=== PATIENT | male | born 1970 | race Asian ===

== ENCOUNTER 2016-04-20 14:07 | Inpatient (IN) | payer OTHER, MEDICAID ==
[~2016-04-20 14:07] MED LIST: HEPARIN 50,000 UNIT/10 ML VIAL IV ONE
[2016-04-20] MEDS ORDERED: ACETAMINOPHEN 325 MG TAB PO PRN (16:22)
[2016-04-20] MEDS ORDERED: ONDANSETRON DISINTEGRATING 4 MG TAB PO PRN (16:22)
[2016-04-20] MEDS ORDERED: HYDROCODONE/APAP 5/325 TAB PO PRN (16:22)
[2016-04-20] MEDS ORDERED: ONDANSETRON 4 MG/2 ML VIAL IVP PRN (16:22)
--- NOTE | 2016-04-20 16:51 | PDGENHP ---
History and Physical - Chief Complaint facial swelling - History of Present Illness 45 yo male with hx of thymoma, dx in 2010, who presented to his oncologist office with left facial and left arm swelling and sent for direct admission. No swallowing issues, no resp issues, alert and oriented. He reports that the thymoma was biopsied in 2010 in [place] and was non malignant. We don't have a formal report. He has left facial swelling, left arm swelling. Onset is this morning. Denies CP, SOB, palpitations, leg swelling or other. Denies hx of DM. Denies other chronic medical problems. EATING, SWALLOWING, BREATHING W/O DIFFICULTY. ROS: per HPI, otherwise negative PMHx: ESRD Thymoma Soc: +cannabis, occasional tobacco, social ETOH Meds/All: no home meds. 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 WE WILL GET A CTA OF THE CHEST FOR EVALUATION OF ETIOLOGY OF SWELLING AND CONFIRMATION OF SVC FILTER. HOLD OFF ON A/C UNTIL CTA RESULTS ARE KNOWN. DR. TURNER WILL FOLLOW. I WILL CONTACT IR (DR RICHARDSON) TO DETERMINE IF A THYMOMA BIOPSY CAN BE DONE TOMORROW TO DETERMINE HOW TO PROCEED RE TREATMENT. IF IT CAN, DR. TURNER RECCS WE START DECADRON. IF CANT BE DONE TOMORROW, THEN SHE RECCS HOLDING DECADRON UNLESS HE DEVELOPS RESP, LARYNGEAL SWELLING SYMPTOMS. RENAL TO SEE RE DIALYSIS. TOTAL CARE TIME IS 80 MINUTES INCLUDING COORDINATION OF CARE History Information - Allergies/Home Medication List Allergies/Adverse Reactions: shimp Allergy (Mild, Uncoded 04/20/16 15:48) I have personally reviewed and updated: medical history, social history - Social History Smoking Status: Current some day smoker Physical Exam Temp Pulse Resp BP Pulse Ox 36.3 C 103 H 18 125/85 H 93 04/20/16 15:40 04/20/16 15:40 04/20/16 15:40 04/20/16 15:40 04/20/16 15:40
[2016-04-20] MEDS ORDERED: IOPAMIDOL (ISOVUE 370) 100 ML BTL IV ONE (16:59)
[2016-04-20 17:00] LABS: % IMMATURE GRANULYOCYTES 0.2 % (0.0-1.1); ABSOLUTE IMMATURE GRANULOCYTES 0.01 10^3/uL (0.00-0.10); ADD DIFF? NO; ADD MORPH? NO; ADD SCAN? NO; ATYPICAL LYMPHOCYTE FLAG 10 (0-99); FRAGMENT RBC FLAG 0 (0-99); HEMATOCRIT 29.9 % (40.0-51.0); HEMOGLOBIN 10.1 g/dL (13.7-17.5); LEFT SHIFT FLG 0 (0-99); LIPEMIA HEMOLYSIS FLAG 90 (0-99); MEAN CELL HEMOGLOBIN 33.7 pg (27.9-34.1); MEAN CELL HEMOGLOBIN CONCENTR. 33.8 g/dL (32.4-36.7); MEAN CELL VOLUME 99.7 fL (81.5-99.8); MEAN PLATELET VOLUME 10.5 fL (8.7-11.7); PLATELET CLUMPS FLAG 0 (0-99); PLATELET COUNT 196 10^3/uL (150-400); RED CELL DISTRIBUTION WIDTH 11.9 % (11.5-15.2)
[2016-04-20 17:15] LABS: ANION GAP 11 mEq/L (8-16); CALCIUM 8.3 mg/dL (8.5-10.4); CARBON DIOXIDE 27 mEq/l (22-31); CHLORIDE 105 mEq/L (97-110); CREATININE 5.9 mg/dL (0.7-1.3); GLOMERULAR FILTRATION RATE 10; GLUCOSE 98 mg/dL (70-100); MAGNESIUM 1.9 mg/dL (1.6-2.3); POTASSIUM 3.7 mEq/L (3.5-5.2); SODIUM 143 mEq/L (134-144)
--- NOTE | 2016-04-20 17:32 | SOAPPROG ---
SORAYA Progress Note Assessment/Plan: Assessment:Plan: ESRD-on Hd MWF at [facility] with Dr. Jacques -plan for dialysis tomorrow -will check Hep serologies LUE and facial edema-being evaluated for chest mass -history of thymoma -could represent recurrence or other process resulting in external compression of SVC -could also represent central vein stenosis and thrombosis related to prior tunneled dialysis catheter -if CT negative for mass, will need fistulagram tomorrow morning -I will follow up on CT and make NPO, place request, if exam negative -I contacted IR and they are aware that he may need exam tomorrow 04/20/16 17:29 Subjective: L Arm and facial swelling Objective: Vital Signs Temp Pulse Resp BP Pulse Ox 36.3 C 103 H 18 125/85 H 93 04/20/16 15:40 04/20/16 15:40 04/20/16 15:40 04/20/16 15:40 04/20/16 15:40 Laboratory Results 04/20/16 16:35 04/20/16 16:35 Physical Exam - Physical Exam General Appearance: WD/WN, alert, mild distress EENT: other (facial and periorbital swelling) Neck: other (some venous distention of veins in neck bilaterally) Respiratory: chest non-tender, lungs clear, normal breath sounds, No respiratory distress Cardiac/Chest: regular rate, rhythm, No diastolic murmur, No systolic murmur Abdomen: normal bowel sounds, non-tender, soft, No organomegaly, No pulsatile mass Extremities: other (AVF patent, massive LUE edema, no RUE edema), No swelling ( in LE's) ICD10 Worksheet Patient Problems: Problems Problem Status Diagnosed ESRD (end stage renal disease) Acute - ICD10 Problem Qualifiers (1) ESRD (end stage renal disease)
--- NOTE | 2016-04-20 18:16 | GCON ---
[f rep st] CONSULTATION REASON FOR CONSULTATION: Patient with a history of previous benign thymoma, presents with clinical presentation concerning for SVC syndrome, known patient of Dr. Colon. HISTORY OF PRESENT ILLNESS: The patient is a very pleasant 45-year-old gentleman, who has endstage renal disease, on hemodialysis for a prior diagnosis of polycystic renal disease. He has been evaluated at [facility] for a renal transplant. He was found to have a mediastinal mass several years ago that was biopsied in [place], [place], and was told it was benign thymoma and followed thereafter, but not treated. I reviewed his biopsy result from Dr. Colon's note from [facility] and an over-read at [place] would suggest this is best classified as a typical thymoma The patient presented today with a 1-day history of facial swelling. He states he has never had this before. Whole face is swollen, including periorbital edema. Also noted that his right neck veins are distended and bilateral upper extremities also distended. He denies any dyspnea and stridor, difficulty swallowing or hemoptysis. He denies any changes in his voice. The most recent CT evaluation of the thymoma was done in November of 2015. At that time, the mass measured approximately 9 cm at its largest dimension. Dr. Colon wanted patient admitted today for a repeat CTA of his chest to evaluate the thymoma and potential that he have thrombosis as well. Patient continues to be dialyzed 3 days a week. He has a dialysis graft on the left upper extremity. He denies abdominal pain, nausea, vomiting, lower extremity edema, fever, weight loss, or skin rash. He does not have any sequelae of the thymoma suggesting myasthenia gravis or any history of blood count abnormalities. PAST MEDICAL HISTORY: Significant for hemorrhagic stroke in 2008 due to untreated hypertension, was found to have polycystic renal disease and renal insufficiency. At that time, he was left with left hemiparesis. He had a craniotomy for removal of hematoma. Mediastinal mass as described above and endstage renal disease as described above. PAST SURGICAL HISTORY: Noncontributory. SOCIAL HISTORY: Smokes cannabis. Occasional tobacco. Social alcohol. MEDS: Reviewed his home medications. PHYSICAL EXAM: VITAL SIGNS: Today show blood pressure 125/85, pulse of 103, respiration rate 18, satting 93% on room air, temp is 36.3. GENERAL: This is a middle-aged gentleman, looks his stated age, not in acute distress. HEENT: Marked facial swelling with periorbital edema. Also has distended neck veins, right greater than left. HEART: Regular rate and rhythm. He had no murmur. LUNGS: Clear to auscultation bilaterally. ABDOMEN: Soft, nontender. LOWER EXTREMITIES: No edema. He has a dialysis graft on the left. He has no indwelling catheters. LABS: Today show CBC with a white blood cell count of 4.5, hemoglobin 10 and platelet count 196. Chemistry: Sodium 143, potassium 3.7, BUN 19, creatinine 5.9. Calcium 8.3, mag 1.9. ASSESSMENT AND PLAN: A 45-year-old gentleman with the above-mentioned past medical history, namely presumed large thymoma and endstage renal disease, who presents with clinical evidence of superior vena cava syndrome. 1. Superior vena cava syndrome, clinically moderate with facial swelling and distended neck veins. He has no respiratory compromise at this time. Differential diagnosis includes external compression from enlarging thymoma or possibly benign superior vena cava syndrome from previous dialysis cath causing a central vein stenosis. He also may have an associated acute thrombosis. At this time, a CTA has been ordered and is pending. He is not currently on any anticoagulation, but is on prophylactic heparin. Renal is following along. If this is from an intrinsic stenosis of central vein, will need venography and ballooning, or stenting of the stenotic area. If this is due to tumor, certainly will need to consider a resection. 2. Thymoma, benign pathology several years ago. Am asking Interventional Radiology to do a CT-guided biopsy tomorrow. Given the high likelihood this is an intrinsic stenosis, I am less inclined to start steroids now. Would like to see the CTA of the chest and would like to hold steroids unless he develops any respiratory or laryngeal swelling symptoms. 3. Endstage renal disease. Appreciate Renal recs. Continue all home medications. Will continue to follow along with patient. Patient is in agreement with the plan. /[id number]/MODL MTDD
--- NOTE | 2016-04-20 18:32 | CT ---
CT Angiogram of the Chest Clinical Indications: SVC syndrome. Known thymic mass. Technique: 1.25-mm thin axial images are performed from lung apex through base during intravenous co ntrast injection of 85 mL of Isovue-370. Coronal and parasagittal reformatted images are reviewed on PACS workstation. Dose reduction techniques were utilized. Comparison: CT angiogram abdomen and pelvis October 28, 2015. Findings: CT Angiogram of the Chest: Congenital right-sided thoracic aorta, with a retroesophageal left subcla vian artery. The ascending thoracic aorta is 3.1 cm, while the descending portion beyond the left ruiz bclavian artery measures 2.5 cm. The right subclavian artery is attached normally, as is the left ca rotid artery. The left vertebral artery does come off of the left subclavian artery, but it is very small. The patient has a dominant right vertebral artery, which comes off of the right subclavian ar isak. The carotid arteries at the base of the neck are symmetric bilaterally. The venous drainage system is abnormal. Specifically, the left jugular vein is contrasted much brigh ter than the right, indicating some degree of arteriovenous fistula. There is extensive chest wall c ollateralization, because the innominate vein that goes from the left to the SVC is completely occlud ed for a very short focal segment by this thymic mass. 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 If anything, I would assume this would cause a delayed contrast rather than in creased contrast uptake. The SVC is also significantly encroached upon by the ascending thoracic aorta, which is just medial t o it. The SVC does drain normally into the right heart. There is no contrast opacification in the I VC on this arterial phase study. I see a flow void that should represent a normal-sized IVC. The pulmonary arterial system does not show any acute pulmonary embolism or chronic pulmonary embolis m. The mass shows multiple arterial phase vessel enhancement, with small vessels traversing through it. There are areas of punctate increased density that probably represent calcifications. CT Scan Chest: There is a mild amount of bibasilar atelectasis. I do not see any dense parenchymal consolidation. There may be mild pulmonary edema. I do not see any significant soft tissue edema in the base of the neck. No adenopathy. No pericardial or pleural effusion. Polycystic liver disease and bilateral polycystic kidney disease is again noted, unchanged from the prior scan. Both thyroid glands are homogeneous, without dominan t nodules. Impression: 1. Large anterior mediastinal left-sided mass, with multiple vessels in it, and probably some areas of punctate calcification. This is amenable to CT-guided anterior percutaneous biopsy. 2. Right-sided thoracic aorta, congenital variant. 3. Subsequent retrotracheal/retroesophageal left subclavian artery. 4. High-grade long segment left innominate vein narrowing due to the mass, with focal complete occlu marcella, causing aneurysmal dilatation of the poststenotic segment of the left subclavian vein and axill donny vein. Extensive chest wall collaterals. 5. Dominant right vertebral artery, with a miniscule left vertebral artery. 6. Significant increased contrast uptake in the left jugular vein, suggestive of an arteriovenous fi stula, although I am not finding this fistula on this CTA. 7. Polycystic kidney disease and polycystic liver disease.
--- NOTE | 2016-04-20 19:16 | US ---
Venous Doppler Study of Left Upper Extremity History: Left upper extremity swelling in a 45-year-old male. There is a left-sided dialysis graft. Technique: High frequency transducer was used for imaging and Doppler study of the veins of the left upper extremity. Pulsed Doppler and color Doppler were utilized, along with various maneuvers to asse ss flow in the veins. This study is interpreted in conjunction with CT scan of the chest performed earlier today. Findings: No venous thrombus is identified. Retrograde flow is seen in the left internal jugular vein and numerous collaterals are identified consistent with findings on the contrast enhanced CT scan of the chest performed earlier today. The left basilic is not identified. The dialysis graft is patent. The left innominate is not visualized. Incidentally, there is diminished pulsatility in the patent r ight subclavian consistent with more central obstruction as detailed in the CT examination. Impression: Negative for venous thrombus with numerous findings detailed on the recent CT scan of the chest. The dialysis graft is patent.
[2016-04-20] MEDS ORDERED: HEPARIN 5,000 UNIT/0.5 ML SYR SC SCH (22:00)
--- NOTE | 2016-04-20 22:37 | GCON ---
[f rep st] CONSULTATION Corrected report NEPHROLOGY CONSULTATION DATE OF CONSULTATION: 04/20/2016 REASON FOR CONSULTATION: End-stage renal disease, in need of dialysis. REASON FOR ADMISSION: 1. Left upper extremity, head and neck swelling, concern for superior vena cava syndrome. 2. History of thymoma. 3. History of polycystic kidney disease. 4. End-stage renal disease, on dialysis, initiated 02/2013. 5. 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 6. Hypertension. RECOMMENDATIONS: 1. Imaging of his chest as you are doing to evaluate for problems related to his thymoma. 2. Plan for dialysis tomorrow. 3. Consider fistulogram if there is no evidence for mass. 4. Renal diet. 5. Avoid IVs, blood pressures and blood draws in the patient's left arm. HISTORY: The patient is a very pleasant 45-year-old male I have been asked to consult on by Dr. Nestor Stockton for his end-stage renal disease. The patient is on dialysis Sunday, Sunday, Sunday at the [facility] under the care of Dr. Jacques. He has end-stage renal disease secondary to polycystic kidney disease. He was diagnosed with his polycystic kidney disease later in life when he presented with a hemorrhagic stroke. This resulted in left hemiparesis and has resulted in a left upper arm contracture at the wrist. He went on to reach end-stage renal disease, and initiated dialysis in February of 2013 in [place], [place]. He relocated here to [place] to be closer to his sister. He had been dialyzed through a tunneled dialysis catheter. He had a left upper extremity AV fistula placed on 05/12/[address] Villatoro at [facility]. He has been relatively stable on dialysis. PAST MEDICAL HISTORY: Thymoma diagnosed in 2010. Polycystic kidney disease diagnosed in 2008. End-stage renal disease, on dialysis since February 2013. Hemorrhagic stroke 2008. Hypertension. Hyperparathyroidism. Iron Deficiency. Anemia SURGICAL HISTORY: Left upper extremity AV fistula, 05/12/2013. Surgical history is also for craniotomy to remove hematoma. FAMILY HISTORY: Positive for possible polycystic kidney disease in his mother. She evidently prior to reaching end-stage renal disease. SOCIAL HISTORY: Positive for marijuana use. OUTPATIENT MEDICATIONS: Include Sensipar 30 mg daily, and Renvela 800 mg taking 2 tablets with meals. CURRENT INPATIENT MEDICATIONS: Acetaminophen, Switchback, Zofran, Subcutaneous heparin. REVIEW OF SYSTEMS: Negative except for that included in the history of present illness. PHYSICAL EXAMINATION: VITAL SIGNS: Temperature 36.3, pulse 106, respirations 16, blood pressure 143/100. Saturating 94% on room air. APPEARANCE: Appears to have head and neck edema. He has periorbital edema. He has some mild engorgement of superficial veins in his neck bilaterally. HEART: Regular with no extra heart sounds. LUNGS: Clear. LEFT UPPER EXTREMITY: Massively edematous with contraction in his hand. Bruit is audible in his fistula. ABDOMEN: Exam is benign. LOWER EXTREMITIES: Free of edema. LABS: Show a creatinine of 5.9, BUN 19, potassium 3.7. Hematocrit 29.9. ASSESSMENT: End-stage renal disease, on dialysis Sunday, Sunday, Sunday. We will plan on doing dialysis tomorrow, depending on what the nature of his chest x-ray is. If he has no evidence of mediastinal mass, then I would pursue fistulogram to look for a central vein stenosis related to his prior tunneled hemodialysis catheter. Obviously, if he has problems with SVC syndrome due to either his previously identified thymoma or some other mediastinal process, evaluation and treatment will depend on the nature of this finding. His arm is swollen. It may be difficult to cannulate his fistula. We may need to wait until his presumed SVC syndrome is treated. He is being seen by Hematology. He has been seen by the Hospitalist service. We will continue his outpatient medications. We will place him on a renal diet. Copy requested to: Primary Care Physician [facility] /[id number]/MODL Ирина WT, 04/21/16, aveyr BENITEZ
[2016-04-21 08:44] LABS: INR 1.01 (0.83-1.16); PROTIME(PATIENT) 13.2 SEC (12.0-15.0)
[2016-04-21] MEDS ORDERED: NON-FORMULARY NEW DRUG (Sevelamer Carbonate [Renvela] 1,600 MG) PO SCH (09:00)
[2016-04-21] MEDS: CINACALCET HCL 30 MG TAB PO SCH (10:55)
--- NOTE | 2016-04-21 11:27 | SOAPPROG ---
SOAP Progress Note Assessment/Plan: Assessment/Plan: ESRD: on HD MWF. - Will do HD today per routine. Access: LUE swollen due to obstructing chest mass. US shows fistula is patent. Will attempt to use today. Tentative plan for surgical intervention of mass this weekend. KENNEY: continue sensipar. Continue Renvela as long as pt has po intake. Subjective: No acute events overnight. Pt is breathing comfortably on room air, not in pain. Objective: Vital Signs Temp Pulse Resp BP Pulse Ox 36.8 C 98 16 144/95 H 95 04/21/16 07:19 04/21/16 07:19 04/21/16 07:19 04/21/16 07:19 04/21/16 07:19 Laboratory Results 04/20/16 16:35 04/20/16 16:35 04/20/16 04/21/16 04/22/16 05:59 05:59 05:59 Intake Total 650 Output Total 300 Balance 350 PT 13.2 SEC (12.0-15.0) 04/21/16 08:18 INR 1.01 (0.83-1.16) 04/21/16 08:18 General: alert and oriented, no acute distress Eyes: EOMI, PERRL Head: swelling noted more prominently on L side of face OP: Clear CV: RRR Resp: CTA bilat, nonlabored respirations Abd; Soft, NT Ext: +1 edema LUE Neuro: CN II-XII grossly intact, no asterixis Psych: cooperative, appropriate mood and affect Access: LUE AVF with thrill and bruit appreciated ICD10 Worksheet Patient Problems: Problems Problem Status Diagnosed ESRD (end stage renal disease) Acute
[2016-04-21] MEDS ORDERED: SEVELAMER HCL 800 MG TAB PO SCH ×2 (12:00)
--- NOTE | 2016-04-21 13:34 | SOAPPROG ---
SORAYA Progress Note Assessment/Plan: Assessment/Plan: 45 yo man w ESRD on HD who p/w mild/mod SVC syndrome due to large thymoma and vascular anomalies 1. Thymoma - Bx and diagnosed several years ago; no intervention was recommended But now appears mass causing vascular compromise on left D/W Dr Magaña Will plan CT guided Bx w IR to get new path reviewed here If thymoma and resectable, would be recommended upfront approach per NCCN guidelines Doubt different path as has been going on for some time NPO Will follow along 2. SVC syndrome - SVC compromised by high aortic arch compressing SVC on R ( anotomin abnormality) in addition to thymic mass compression on left No indication for endovascular stent Clinically pt looks better today for unclear reasons 3. ESRD - HD 3x/week; due to PCKD 4. Anemia - due to ESRD 5. Other med issues - per IM, appreciate help 04/21/16 13:22 04/21/16 13:34 04/21/16 13:43 04/21/16 13:44 Subjective: No acute events In HD currently Reports decreased facial swelling Objective: Vital Signs Temp Pulse Resp BP Pulse Ox 36.5 C 92 16 136/96 H 93 04/21/16 11:37 04/21/16 11:37 04/21/16 11:37 04/21/16 11:37 04/21/16 11:37 Laboratory Results 04/20/16 16:35 04/20/16 16:35 04/20/16 04/21/16 04/22/16 05:59 05:59 05:59 Intake Total 650 Output Total 300 Balance 350 PT 13.2 SEC (12.0-15.0) 04/21/16 08:18 INR 1.01 (0.83-1.16) 04/21/16 08:18 Gen - NAD HEENT - facial and periorbital swelling less today; R arm less edematous than left CV - RRR Chest - clear Ext - no sig edema ICD10 Worksheet Patient Problems: Problems Problem Status Diagnosed ESRD (end stage renal disease) Acute
[2016-04-21] MEDS ORDERED: HYDROmorphONE/DILAUDID 2 MG/ML INJ ONE (14:38)
[2016-04-21] MEDS ORDERED: fentaNYL 100 MCG/2 ML INJ ONE (14:38)
--- NOTE | 2016-04-21 15:55 | HOSPPROG ---
Hospitalist Progress Note Assessment/Plan: * enlarging mediastinal mass with previous diagnosis of thymoma * after discussion with cardiovascular surgery and Oncology will go ahead with biopsy today. * Most likely need resection * end-stage renal disease * dialysis today * SVC syndrome * seems to be better today * does have a lot of collateralization on CT scan * no indication for endovascular stenting Subjective: no new complaint although feeling hungry. Does have some continued left arm and facial swelling but better Objective: Vital Signs Temp Pulse Resp BP Pulse Ox 36.5 C 92 16 136/96 H 93 04/21/16 11:37 04/21/16 11:37 04/21/16 11:37 04/21/16 11:37 04/21/16 11:37 Laboratory Results 04/20/16 16:35 04/20/16 16:35 04/20/16 04/21/16 04/22/16 05:59 05:59 05:59 Intake Total 650 Output Total 300 Balance 350 PT 13.2 SEC (12.0-15.0) 04/21/16 08:18 INR 1.01 (0.83-1.16) 04/21/16 08:18 - Physical Exam Constitutional: no apparent distress, appears nourished, not in pain Eyes: anicteric sclera, EOMI Ears, Nose, Mouth, Throat: moist mucous membranes, hearing normal, other ( mild left facial swelling but no significant periorbital edema) Cardiovascular: regular rate and rhythym Respiratory: no respiratory distress, no rales or rhonchi, clear to auscultation Gastrointestinal: normoactive bowel sounds, soft, non-tender abdomen, no palpable masses Skin: warm Neurologic: AAOx3 Psychiatric: interacting appropriately, not anxious, not encephalopathic, thought process linear ICD10 Worksheet Patient Problems: Problems Problem Status Diagnosed ESRD (end stage renal disease) Acute
[2016-04-21] MEDS ORDERED: SEVELAMER CARBONATE 1600 MG PO SCH (16:00)
[2016-04-21] MEDS: SEVELAMER CARBONATE 1600 MG PO SCH ×2 (17:28→20:25)
--- NOTE | 2016-04-21 17:41 | POSTOPPROG ---
Post Op Note Date of Operation: 04/21/16 Surgeon: Edd Liao Anesthesia: Other (Specify) (150 mcg Fentanyl) Pre-op Diagnosis: Anterior mediastinal mass Post-op Diagnosis: Anterior mediastinal mass Indication: Anterior mediastinal mass Procedure: CT guided anterior mediastinal mass biopsy Findings: No immediate complication Inf/Abcess present in the surg proc area at time of surgery?: No Depth: Organ Space (anterior mediastinum) EBL: Minimal Complications: No immediate Specimen(s): 7 18 gauge core biopsies
--- NOTE | 2016-04-21 18:55 | CT ---
CT-Guided Anterior Mediastinal Mass Biopsy Indication: 45-year-old with heterogeneous anterior mediastinal mass, reportedly biopsied years ago ( pathology not available). Crosscutting Measure #226: Current tobacco user: Yes. The patient was counseled on smoking cessation. Comparison: CT angio chest April 20, 2016. Intravenous medication: Fentanyl 150 mcg were administered intravenously for conscious sedation durin g 40 minutes of monitoring by the nurse and me. Start time was 1615 and end time was 1655. Procedure: Prior to the procedure, the risks (including bleeding, infection, and nondiagnosis), benef its, and alternatives were explained to the patient and informed written consent was obtained. A time out was performed. A pre-procedural CT was performed and an area of skin over the left margin of the sternum was marked, then prepped and draped in the usual sterile fashion. The skin and deep soft ti ssues were numbed with 1% lidocaine with bicarbonate. Utilizing CT guidance, a 17-gauge coaxial needl e was advanced into the mass, just lateral to the sternum, medial to the internal mammary artery. Us ing coaxial technique, 7 core biopsies were obtained. 2 were placed in Ho's solution for flow cytom etry if necessary. The needle was removed. Manual hemostasis was achieved. The patient tolerated the procedure well without immediate complications. The patient was sent to recovery for monitoring. Post procedure discharge instructions were given. Specimens were sent to Pathology for analysis. Dose red uction techniques were utilized. Impression: CT-guided anterior mediastinal mass biopsy as above.
[2016-04-22] MEDS: CINACALCET HCL 30 MG TAB PO SCH (08:37)
[2016-04-22] MEDS: SEVELAMER CARBONATE 1600 MG PO SCH ×2 (08:37→17:40)
--- NOTE | 2016-04-22 11:11 | GCON ---
[f rep st] CONSULTATION DATE OF CONSULTATION: 04/22/2016 DIAGNOSIS: Anterior mediastinal mass. HISTORY OF PRESENT ILLNESS: A 45-year-old gentleman who has a somewhat complicated history. He has polycystic kidney and liver disease, and he has been on dialysis since 2014. He has a known anterior mediastinal mass. It was biopsied in [place] in 2010. He was told he had a benign thymoma. Last y ear he saw a surgeon at the [facility], who said it would be a "dangerous operation," and the patient apparently opted not to have anything done to the mass in his mediastinum. In November of last year, apparently by CT scan, it measured 9 cm. Now he presents with superior vena cava synd rigoberto with facial swelling starting last week, and he was admitted to the hospital. He had a CT scan that shows a very large anterior mediastinal mass, compressing the left innominate vein and the left pulmonary artery, and abutting his trachea. There are areas where there is a clear plane around the lesion, but there are other areas such as around the pulmonary artery and around the trachea where th ere is not a clear-cut plane. The patient also has aberrant anatomy with a right-sided arch and a re trotracheal left subclavian artery. The patient had a biopsy per my request yesterday. These result s are still pending. REVIEW OF SYSTEMS: The patient has polycystic kidney and liver disease and is on dialysis. He has a history of a stroke in 2008. He did have a craniotomy at that time. This was thought to be seconda ry to hypertension. He has residual complete left arm paralysis. He is able to walk with a cane. PAST SURGICAL HISTORY: Craniotomy. He has a functioning fistula in the left upper arm, and he is tr santo to get on a transplant list at the [facility]. PHYSICAL EXAMINATION: VITAL SIGNS: Stable. GENERAL: This is a well-developed male. He is alert a nd oriented. He has obvious paralysis of the left arm. There is a functioning fistula in the left u pper arm. He has significant fascial swelling. He has large veins on his upper chest wall. LUNGS: Clear. HEART: Regular rate and rhythm. Again, there are large veins on his chest wall. ASSESSMENT: This is a 45-year-old with a large anterior mediastinal mass that is obstructing his lef t innominate vein, and this is behind a fistula. The superior vena cava has narrowed as it is compre ssed by the aorta and a right-sided arch. The trachea is abutted, but not compressed. The left main pulmonary artery is abutted and compressed. It is not clear whether there is a plane at that level. It is not at all clear whether this is a resectable tumor, although there is a need in this patient for debulking at this time, and I think that is the approach we need to take. The surgery is going to be complicated by the fact that the patient does have a functioning fistula in his left upper extr emity that is going to increase the venous pressure in the system and cause more issues with bleeding , but I think it is something we will have to accept. We may have to compress the fistula transientl y during the operation to accomplish all of this. I do want to wait and see what the biopsy shows. If by some unfortunate circumstance this is actually a thymic carcinoma, then the patient should be p retreated with chemotherapy and radiation therapy. If not, surgery remains his best option. /[id number]/MODL
[2016-04-22 13:54] LABS: HEPATITIS Bs Ab QUANT 50.5 mIU/mL (())
--- NOTE | 2016-04-22 14:59 | HOSPPROG ---
Hospitalist Progress Note Assessment/Plan: * enlarging mediastinal mass with previous diagnosis of thymoma * will need resection * biopsy done yesterday * end-stage renal disease due to polycystic kidney disease * dialysis * SVC syndrome * seems to be better today * does have a lot of collateralization on CT scan * no indication for endovascular stenting Subjective: no new complaints. Swelling is about the same Objective: Vital Signs Temp Pulse Resp BP Pulse Ox 37.1 C 90 16 112/84 H 94 04/22/16 11:20 04/22/16 11:20 04/22/16 11:20 04/22/16 11:20 04/22/16 11:20 Laboratory Results 04/20/16 16:35 04/20/16 16:35 04/21/16 04/22/16 04/23/16 05:59 05:59 05:59 Intake Total 650 Output Total 300 Balance 350 PT 13.2 SEC (12.0-15.0) 04/21/16 08:18 INR 1.01 (0.83-1.16) 04/21/16 08:18 - Physical Exam Constitutional: no apparent distress, appears nourished, not in pain Eyes: anicteric sclera, EOMI Ears, Nose, Mouth, Throat: moist mucous membranes, other ( left facial swelling about the same) Cardiovascular: regular rate and rhythym Respiratory: no respiratory distress, no rales or rhonchi, clear to auscultation Gastrointestinal: normoactive bowel sounds, soft, non-tender abdomen, no palpable masses Skin: warm Neurologic: AAOx3 Psychiatric: interacting appropriately, not anxious, not encephalopathic, thought process linear ICD10 Worksheet Patient Problems: Problems Problem Status Diagnosed ESRD (end stage renal disease) Acute
--- NOTE | 2016-04-22 17:43 | SOAPPROG ---
SORAYA Progress Note Assessment/Plan: Assessment: 1. esrd: next hd Mon on typical mwf schedule. 2. svc syndrome: path pending on bx of mediastinal mass but will need surgery. 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 Will see how LUE swelling responds to surgery, but may also need uniform force captain of stenosis. Plan: 04/22/16 17:39 Subjective: No particular c/o. Facial swelling has gone down. Objective: Vital Signs Temp Pulse Resp BP Pulse Ox 36.4 C 86 16 127/89 H 93 04/22/16 15:34 04/22/16 15:34 04/22/16 15:34 04/22/16 15:34 04/22/16 15:34 Laboratory Results 04/20/16 16:35 04/20/16 16:35 04/21/16 04/22/16 04/23/16 05:59 05:59 05:59 Intake Total 650 Output Total 300 Balance 350 PT 13.2 SEC (12.0-15.0) 04/21/16 08:18 INR 1.01 (0.83-1.16) 04/21/16 08:18 Physical Exam - Physical Exam General Appearance: no apparent distress Respiratory: lungs clear Cardiac/Chest: regular rate, rhythm Extremities: swelling (RUE), other (+patent RUE avg) ICD10 Worksheet Patient Problems: Problems Problem Status Diagnosed ESRD (end stage renal disease) Acute
--- NOTE | 2016-04-22 18:26 | SOAPPROG ---
SORAYA Progress Note Assessment/Plan: Assessment: 45 yo man w ESRD on HD who p/w mild/mod SVC syndrome due to large thymoma and vascular anomalies 1. Thymoma - Bx and diagnosed several years ago; no intervention was recommended But now appears mass causing vascular compromise on left. He had his biopsy preformed on 04/21/16. Results are pending. If thymoma and resectable, would be recommended upfront approach per NCCN guidelines Doubt different path as has been going on for some time. Will follow along 2. SVC syndrome - SVC compromised by high aortic arch compressing SVC on R ( anotomin abnormality) in addition to thymic mass compression on left No indication for endovascular stent. He is not sure if his swelling is better today or not. 3. ESRD - HD 3x/week; due to PCKD 4. Anemia - due to ESRD 5. Other med issues - per IM, appreciate help Plan: Will follow up when biopsy is available. Subjective: No complaints. Watching TV. Objective: Vital Signs Temp Pulse Resp BP Pulse Ox 36.4 C 86 16 127/89 H 93 04/22/16 15:34 04/22/16 15:34 04/22/16 15:34 04/22/16 15:34 04/22/16 15:34 Laboratory Results 04/20/16 16:35 04/20/16 16:35 04/20/16 04/21/16 04/22/16 23:59 23:59 23:59 Intake Total 650 Output Total 300 Balance 650 -300 PT 13.2 SEC (12.0-15.0) 04/21/16 08:18 INR 1.01 (0.83-1.16) 04/21/16 08:18 Physical Exam - Physical Exam General Appearance: alert, no apparent distress Neck: other (swelling consistent with SVC syndrome) ICD10 Worksheet Patient Problems: Problems Problem Status Diagnosed ESRD (end stage renal disease) Acute
[2016-04-23 05:21] LABS: ANION GAP 10 mEq/L (8-16); CALCIUM 9.2 mg/dL (8.5-10.4); CARBON DIOXIDE 28 mEq/l (22-31); CHLORIDE 100 mEq/L (97-110); GLOMERULAR FILTRATION RATE 7; GLUCOSE 76 mg/dL (70-100); POTASSIUM 4.6 mEq/L (3.5-5.2); SODIUM 138 mEq/L (134-144)
[2016-04-23 05:23] LABS: CREATININE 8.3 mg/dL (0.7-1.3)
[2016-04-23] MEDS: CINACALCET HCL 30 MG TAB PO SCH (09:37)
[2016-04-23] MEDS: SEVELAMER CARBONATE 1600 MG PO SCH ×3 (09:37→19:18)
--- NOTE | 2016-04-23 15:36 | SOAPPROG ---
SORAYA Progress Note Assessment/Plan: Assessment: 1. esrd: hd tomorrow on typical mwf schedule. 2. svc syndrome: path pending on bx of mediastinal mass but will need surgery. 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 Will see how LUE swelling responds to surgery, but may also need airplane captain of stenosis. Plan: 04/22/16 17:39 04/23/16 15:34 Subjective: no c/o, feeling well Objective: Vital Signs Temp Pulse Resp BP Pulse Ox 36.3 C 85 16 119/84 H 98 04/23/16 08:00 04/23/16 08:00 04/23/16 08:00 04/23/16 12:03 04/23/16 12:03 Laboratory Results 04/20/16 16:35 04/23/16 04:21 PT 13.2 SEC (12.0-15.0) 04/21/16 08:18 INR 1.01 (0.83-1.16) 04/21/16 08:18 Physical Exam - Physical Exam General Appearance: no apparent distress Respiratory: lungs clear Cardiac/Chest: regular rate, rhythm Extremities: other (no LE edema; +LUE edema; +patent LUE avg) ICD10 Worksheet Patient Problems: Problems Problem Status Diagnosed ESRD (end stage renal disease) Acute
--- NOTE | 2016-04-23 15:54 | HOSPPROG ---
Hospitalist Progress Note Assessment/Plan: * enlarging mediastinal mass with previous diagnosis of thymoma * will need resection * biopsy done Sunday - awaiting results * CV surgery is following - possible surgery on Sunday * end-stage renal disease due to polycystic kidney disease * dialysis * SVC syndrome * seems to be better today * does have a lot of collateralization on CT scan * no indication for endovascular stenting Subjective: no new complaints Objective: Vital Signs Temp Pulse Resp BP Pulse Ox 36.3 C 85 16 119/84 H 98 04/23/16 08:00 04/23/16 08:00 04/23/16 08:00 04/23/16 12:03 04/23/16 12:03 Laboratory Results 04/20/16 16:35 04/23/16 04:21 PT 13.2 SEC (12.0-15.0) 04/21/16 08:18 INR 1.01 (0.83-1.16) 04/21/16 08:18 - Physical Exam Constitutional: no apparent distress, appears nourished, not in pain Eyes: anicteric sclera, EOMI Ears, Nose, Mouth, Throat: moist mucous membranes, other ( left facial swelling about the same) Respiratory: no respiratory distress Musculoskeletal: other ( left arm swelling about the same) Neurologic: AAOx3 Psychiatric: interacting appropriately, not anxious, not encephalopathic, thought process linear ICD10 Worksheet Patient Problems: Problems Problem Status Diagnosed ESRD (end stage renal disease) Acute
[2016-04-24 05:21] LABS: ANION GAP 12 mEq/L (8-16); CALCIUM 8.7 mg/dL (8.5-10.4); CARBON DIOXIDE 27 mEq/l (22-31); CHLORIDE 100 mEq/L (97-110); GLOMERULAR FILTRATION RATE 6; GLUCOSE 74 mg/dL (70-100); POTASSIUM 4.6 mEq/L (3.5-5.2); SODIUM 139 mEq/L (134-144)
--- NOTE | 2016-04-24 08:37 | SOAPPROG ---
SORAYA Progress Note Assessment/Plan: Assessment: 1. Recurrent Thymoma with SVC syndrome Bx path hopefully back today. Plans for surgery subsequently 2. HTN At goal 3. ESRD Stable HD today, next on Sun. Plan: 04/24/16 08:34 Subjective: Doing ok. Objective: Vital Signs Temp Pulse Resp BP Pulse Ox 36.7 C 90 14 126/85 H 94 04/23/16 23:32 04/23/16 23:32 04/23/16 23:32 04/23/16 23:32 04/23/16 23:32 Laboratory Results 04/20/16 16:35 04/24/16 04:33 04/23/16 04/24/16 04/25/16 05:59 05:59 05:59 Output Total 50 Balance -50 PT 13.2 SEC (12.0-15.0) 04/21/16 08:18 INR 1.01 (0.83-1.16) 04/21/16 08:18 Physical Exam - Physical Exam General Appearance: no apparent distress EENT: other (Facial edema noted.) Respiratory: lungs clear Cardiac/Chest: regular rate, rhythm Abdomen: non-tender Extremities: pedal edema Neuro/Psych: oriented x 3 ICD10 Worksheet Patient Problems: Problems Problem Status Diagnosed ESRD (end stage renal disease) Acute
[2016-04-24] MEDS: SEVELAMER CARBONATE 1600 MG PO SCH ×3 (09:14→18:06)
[2016-04-24] MEDS ORDERED: LIDOCAINE 1% 5 ML SDV ID PRN (12:37)
[2016-04-24] MEDS ORDERED: MUPIROCIN 2% 22 GM OINT NS ONE (12:37)
[2016-04-24] MEDS: CINACALCET HCL 30 MG TAB PO SCH (12:44)
[2016-04-24 14:20] LABS: FINAL DIAGNOSIS See Comments (()); MICROSCOPIC DESCRIPTION See Comments (())
--- NOTE | 2016-04-24 14:59 | SOAPPROG ---
SORAYA Progress Note Assessment/Plan: Assessment: 45 yo man w ESRD on HD who p/w mild/mod SVC syndrome due to large thymoma and vascular anomalies 1. Thymoma - Bx and diagnosed several years ago; no intervention was recommended But now appears mass causing vascular compromise on left. He had his biopsy preformed on 04/21/16. Results show necrotic tissue, flow c/w t cell origin Scheduled for surgery tomorrow am 2. SVC syndrome - SVC compromised by high aortic arch compressing SVC on R ( anatomic abnormality) in addition to thymic mass compression on left No indication for endovascular stent. hopefully will improve post surgery 3. ESRD - HD 3x/week; due to PCKD 4. Anemia - due to ESRD 5. Other med issues - per IM, appreciate help Plan: will continue to follow 04/24/16 14:57 Subjective: Feels ok Objective: Vital Signs Temp Pulse Resp BP Pulse Ox 98.1 F 90 14 126/85 H 94 04/23/16 23:32 04/23/16 23:32 04/23/16 23:32 04/23/16 23:32 04/23/16 23:32 Laboratory Results 04/20/16 16:35 04/24/16 04:33 04/23/16 04/24/16 04/25/16 05:59 05:59 05:59 Output Total 50 Balance -50 PT 13.2 SEC (12.0-15.0) 04/21/16 08:18 INR 1.01 (0.83-1.16) 04/21/16 08:18 ICD10 Worksheet Patient Problems: Problems Problem Status Diagnosed ESRD (end stage renal disease) Acute
--- NOTE | 2016-04-24 16:25 | HOSPPROG ---
Hospitalist Progress Note Assessment/Plan: 45 yo M with hx of thymoma pw enlarging thymoma and svc syndrome # enlarging thymoma: with resultant vascular compromise. CT surgery consulted with plans for surgical resection in am. Personally reviewed CT scan showing enlarging mass with calcification and vascular effect # svc sydnrome: 2/2 above, plan for surgical resection of mass as above # esrd: 2/2 PKD, renal following, continue HD # hx of hemorrhagic stroke : with residual left sided weakness # dispo: IP status, to OR for surgical resection of thymoma in am per CT surgery Patient new to my care. Old records reviewed and summarized as above. Subjective: no significant overnight events, patient feeling ok, eager to get surgery done in am Objective: Vital Signs Temp Pulse Resp BP Pulse Ox 36.7 C 89 16 118/83 H 96 04/24/16 16:00 04/24/16 16:00 04/24/16 16:00 04/24/16 16:00 04/24/16 16:00 Laboratory Results 04/20/16 16:35 04/24/16 04:33 04/23/16 04/24/16 04/25/16 05:59 05:59 05:59 Output Total 50 Balance -50 PT 13.2 SEC (12.0-15.0) 04/21/16 08:18 INR 1.01 (0.83-1.16) 04/21/16 08:18 awake alert nad facial plethora and swelling rrr no mrg cta b soft nt nd no cce warm dry well perfused oriented appropriate ICD10 Worksheet Patient Problems: Problems Problem Status Diagnosed 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
[2016-04-24 16:57] LABS: HEMOGLOBIN A1C 5.2 % (4.0-6.0)
[2016-04-24] MEDS: MUPIROCIN 2% 22 GM OINT NS SCH (20:18)
[2016-04-24] MEDS ORDERED: CHLORHEXIDINE GLUC HIBICLENS 118 ML BTL TP SCH (21:00)
--- NOTE | 2016-04-24 21:09 | SOAPPROG ---
SORAYA Progress Note Assessment/Plan: Assessment: Plan: 04/24/16 21:05 45 min f/f reviewing CT w pt and sister surgery risks and complications rev at length including bleeding , need to occ access shunt w potential loss of shunt infection, inability to control bleeding or resect tumor an option as well alternatives to do nothing, not responsive to XRT or chemo usually and has caval syndrome may need CPB as adjunct they understand and accept those risks Objective: Vital Signs Temp Pulse Resp BP Pulse Ox 36.7 C 89 16 118/83 H 96 04/24/16 16:00 04/24/16 16:00 04/24/16 16:00 04/24/16 16:00 04/24/16 16:00 Laboratory Results 04/20/16 16:35 04/24/16 04:33 04/23/16 04/24/16 04/25/16 05:59 05:59 05:59 Intake Total 200 Output Total 50 Balance -50 200 PT 13.2 SEC (12.0-15.0) 04/21/16 08:18 INR 1.01 (0.83-1.16) 04/21/16 08:18 ICD10 Worksheet Patient Problems: Problems Problem Status Diagnosed 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
[2016-04-24] MEDS ORDERED: ZOLPIDEM TARTRATE 5 MG TAB PO PRN (22:13)
[2016-04-25] MEDS ORDERED: CITRATE DEXTROSE SOLN 500 ML BAG MISC ONE (06:00)
[2016-04-25] MEDS ORDERED: NOREPINEPHRINE BITARTRATE 16 MG in NS 250 ML IV ONE (06:00)
[2016-04-25] MEDS ORDERED: MANNITOL 25% 12.5 GM/50 ML VIAL IV ONE (06:00)
[2016-04-25] MEDS ORDERED: ceFAZolin 2 GM/DEXTROSE 100 ML IV ONE (06:00)
[2016-04-25] MEDS ORDERED: SODIUM BICARBONATE 20 MEQ, LIDOCAINE 1% 10 ML in NORMOSOL-R 1,000 ML MISC ONE (06:00)
[2016-04-25] MEDS ORDERED: NS 1,000 ML IV ONE (06:00)
[2016-04-25] MEDS ORDERED: PHENYLEPHRINE HCL 50 MG in NS 250 ML IV ONE (06:00)
[2016-04-25] MEDS ORDERED: AMINOCAPROIC ACID 5 GM/20 ML VIAL IV ONE (06:00)
[2016-04-25] MEDS ORDERED: INSULIN REGULAR HUMAN 100 UNIT in NS 100 ML IV SCH ×2 (06:00→16:15)
[2016-04-25] MEDS ORDERED: HEPARIN 10,000 UNIT/10 ML MDV ONE (06:46)
[2016-04-25] MEDS ORDERED: LIDOCAINE 2% 100 MG/5 ML SYR IVP ONE ×2 (06:46→07:22)
[2016-04-25] MEDS ORDERED: SODIUM BICARBONATE 10 MEQ/10 ML SYR IVP ONE (06:46)
[2016-04-25] MEDS ORDERED: AMINOCAPROIC ACID 5 GM/20 ML VIAL ONE (06:46)
[2016-04-25] MEDS ORDERED: MAGNESIUM SULFATE 1 GM/2 ML VIAL ONE (06:47)
[2016-04-25] MEDS ORDERED: PROTAMINE SULFATE 50 MG/5 ML VIAL IVP ONE (06:47)
[2016-04-25] MEDS ORDERED: CALCIUM CHLORIDE 1 GM/10 ML INJ ONE ×2 (06:48→09:49)
[2016-04-25] MEDS ORDERED: DOPamine/DEXTROSE/250 ML BAG IV ONE (06:51)
[2016-04-25 06:55] LABS: HEMATOCRIT 28.1 % (40.0-51.0); HEMOGLOBIN 9.4 g/dL (13.7-17.5); MEAN CELL HEMOGLOBIN 33.7 pg (27.9-34.1); MEAN CELL HEMOGLOBIN CONCENTR. 33.5 g/dL (32.4-36.7); MEAN CELL VOLUME 100.7 fL (81.5-99.8); RED BLOOD CELL COUNT 2.79 10^6/uL (4.40-6.38); RED CELL DISTRIBUTION WIDTH 11.9 % (11.5-15.2)
[2016-04-25] MEDS ORDERED: MIDAZOLAM 2 MG/2 ML VIAL ONE (07:18)
[2016-04-25] MEDS ORDERED: PROPOFOL/EMULSION 500 MG/50 ML BOTTLE IV ONE ×2 (07:20→10:01)
[2016-04-25] MEDS ORDERED: fentaNYL 250 MCG/5 ML INJ ONE (07:20)
[2016-04-25] MEDS ORDERED: REMIFENTANIL HCL 1 MG VIAL ONE ×2 (07:20→10:01)
[2016-04-25] MEDS ORDERED: CISATRACURIUM BESYLATE 20 MG/10 ML VIAL IV ONE ×3 (07:30→17:01)
[2016-04-25] MEDS ORDERED: SUCCINYLCHOLINE CHLORIDE*ANESTHESIA ONLY*200 MG/10 ML SYR IVP ONE (07:30)
[2016-04-25] MEDS ORDERED: DEXAMETHASONE 4 MG/ML VIAL ONE ×2 (07:31)
[2016-04-25] MEDS ORDERED: CITRATE DEXTROSE SOLN 500 ML BAG ONE ×2 (07:50→16:39)
[2016-04-25 07:51] LABS: ALBUMIN 3.5 g/dL (3.5-5.0); ANION GAP 13 mEq/L (8-16); CALCIUM 8.5 mg/dL (8.5-10.4); CARBON DIOXIDE 27 mEq/l (22-31); CHLORIDE 100 mEq/L (97-110); CREATININE 6.6 mg/dL (0.7-1.3); GLOMERULAR FILTRATION RATE 9; GLUCOSE 72 mg/dL (70-100); POTASSIUM 4.5 mEq/L (3.5-5.2); SODIUM 140 mEq/L (134-144)
--- NOTE | 2016-04-25 09:04 | SOAPPROG ---
SORAYA Progress Note Assessment/Plan: Assessment:Plan: ESRD-on Hd MWF at [facility] with Dr. Jacques -plan for dialysis tomorrow -UF as tolerated LUE and facial edema-SVC syndrome with chest mass -history of thymoma -for surgery today Access-stable 04/25/16 09:02 Subjective: In OR Objective: Vital Signs Temp Pulse Resp BP Pulse Ox 36.8 C 89 16 120/91 H 96 04/25/16 00:00 04/25/16 00:00 04/25/16 00:00 04/25/16 00:00 04/25/16 00:00 Laboratory Results 04/25/16 04:37 04/25/16 04:37 04/24/16 04/25/16 04/26/16 05:59 05:59 05:59 Intake Total 200 Output Total 50 Balance -50 200 PT 13.2 SEC (12.0-15.0) 04/21/16 08:18 INR 1.01 (0.83-1.16) 04/21/16 08:18 ICD10 Worksheet Patient Problems: Problems Problem Status Onset 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
[2016-04-25] MEDS ORDERED: ALBUMIN 5% 250 ML BOTTLE IV ONE ×3 (09:43→15:26)
[2016-04-25] MEDS ORDERED: morphINE *ANESTHESIA ONLY* 10 MG/ML VIAL ONE (10:01)
[2016-04-25] MEDS ORDERED: MAGNESIUM SULF 2 GM/WATER 50 ML BAG IV ONE (10:17)
[2016-04-25] MEDS ORDERED: ceFAZolin 1 GM VIAL ONE ×2 (12:18)
[2016-04-25] MEDS ORDERED: DESMOPRESSIN ACETATE 18 MCG in NS 50 ML IV ONE (12:30)
[2016-04-25] MEDS ORDERED: MINERAL OIL 10 ML VIAL TP ONE (12:47)
[2016-04-25] MEDS ORDERED: niCARdipine/NACL/200 ML BAG IV ONE (12:50)
[2016-04-25] MEDS ORDERED: PROPOFOL 200 MG/20 ML VIAL ONE ×4 (13:30→17:17)
[2016-04-25] MEDS ORDERED: fentaNYL 100 MCG/2 ML INJ ONE (13:51)
--- NOTE | 2016-04-25 14:21 | HOSPPROG ---
Hospitalist Progress Note Assessment/Plan: 45 yo M with hx of thymoma pw enlarging thymoma and svc syndrome # enlarging thymoma: with resultant vascular compromise. CT surgery consulted with plans for surgical resection today # svc sydnrome: 2/2 above, plan for surgical resection of mass as above # esrd: 2/2 PKD, renal following, continue HD # hx of hemorrhagic stroke : with residual left sided weakness # dispo: IP status, to OR for surgical resection of thymoma in am per CT surgery Patient to OR with CT surgery. Will be under primary care of CT surgery in post op setting and therefore medicine will sign off. Please re-consult if needed. Objective: Vital Signs Temp Pulse Resp BP Pulse Ox 36.8 C 89 16 120/91 H 96 04/25/16 00:00 04/25/16 00:00 04/25/16 00:00 04/25/16 00:00 04/25/16 00:00 Laboratory Results 04/25/16 04:37 04/25/16 04:37 04/24/16 04/25/16 04/26/16 05:59 05:59 05:59 Intake Total 200 Output Total 50 Balance -50 200 PT 13.2 SEC (12.0-15.0) 04/21/16 08:18 INR 1.01 (0.83-1.16) 04/21/16 08:18 ICD10 Worksheet Patient Problems: Problems Problem Status Onset ESRD (end stage renal disease) Chronic Superior vena cava compression syndrome Acute Thymoma 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
[2016-04-25 14:40] LABS: % IMMATURE GRANULYOCYTES 0.3 % (0.0-1.1); ABSOLUTE IMMATURE GRANULOCYTES 0.02 10^3/uL (0.00-0.10); ADD DIFF? NO; ADD MORPH? NO; ADD SCAN? NO; ATYPICAL LYMPHOCYTE FLAG 0 (0-99); FRAGMENT RBC FLAG 0 (0-99); HEMOGLOBIN 8.4 g/dL (13.7-17.5); LEFT SHIFT FLG 0 (0-99); LIPEMIA HEMOLYSIS FLAG 90 (0-99); MEAN CELL HEMOGLOBIN 32.2 pg (27.9-34.1); MEAN PLATELET VOLUME 9.5 fL (8.7-11.7); PLATELET CLUMPS FLAG 0 (0-99); PLATELET COUNT 70 10^3/uL (150-400); RED BLOOD CELL COUNT 2.61 10^6/uL (4.40-6.38); RED CELL DISTRIBUTION WIDTH 15.9 % (11.5-15.2)
[2016-04-25 14:55] LABS: INR 1.81 (0.83-1.16); PROTIME(PATIENT) 21.1 SEC (12.0-15.0)
[2016-04-25] MEDS ORDERED: SKIN ADHESIVE (DERMABOND) 1 EACH TP ONE (14:55)
[2016-04-25 14:56] LABS: APTT 50.9 SEC (23.0-38.0)
[2016-04-25] MEDS: MUPIROCIN 2% 22 GM OINT NS SCH ×2 (14:56→21:11)
[2016-04-25] MEDS: SEVELAMER CARBONATE 1600 MG PO SCH ×2 (14:56→14:58)
[2016-04-25] MEDS: CINACALCET HCL 30 MG TAB PO SCH (14:56)
[2016-04-25] MEDS ORDERED: LACTULOSE 20 GM/30 ML UDCUP PO PRN (16:15)
[2016-04-25] MEDS ORDERED: CEPACOL LOZENGE PO PRN (16:15)
[2016-04-25] MEDS ORDERED: MAGNESIUM SULF 2 GM/WATER 50 ML IV ONE (16:15)
[2016-04-25] MEDS ORDERED: METOCLOPRAMIDE 10 MG/2 ML VIAL IVP PRN (16:15)
[2016-04-25] MEDS ORDERED: PANTOPRAZOLE SODIUM 40 MG in NS 100 ML IV ONE (16:15)
[2016-04-25] MEDS ORDERED: ASPIRIN 81 MG CHEWABLE TAB PO SCH (16:15)
[2016-04-25] MEDS ORDERED: NS 1,000 ML IV SCH (16:15)
[2016-04-25] MEDS ORDERED: ASPIRIN 81 MG CHEWABLE TAB TUBE PRN (16:15)
[2016-04-25] MEDS ORDERED: ACETAMINOPHEN 650 MG SUPP PR PRN (16:15)
[2016-04-25] MEDS ORDERED: BISACODYL 10 MG SUPP PR PRN (16:15)
[2016-04-25] MEDS ORDERED: SODIUM CL NASAL 45 ML BTL EACHNARE PRN (16:15)
[2016-04-25] MEDS ORDERED: MAGNESIUM HYDROXIDE 30 ML UDCUP PO PRN (16:15)
[2016-04-25] MEDS ORDERED: D50W 25 GM/50 ML SYR IVP PRN (16:15)
[2016-04-25] MEDS ORDERED: POLYETHYLENE GLYCOL 3350 17 GM PKT PO PRN (16:15)
[2016-04-25] MEDS ORDERED: PANTOPRAZOLE SODIUM 40 MG TAB PO SCH (16:15)
[2016-04-25] MEDS ORDERED: MEPERIDINE 25 MG/ML SYR IVP PRN (16:15)
[2016-04-25] MEDS ORDERED: POTASSIUM Cl (KCl) 50 ML IV PRN (16:15)
[2016-04-25 18:52] LABS: CALCULATED OXYGEN SATURATION 99 % (92-95)
[2016-04-25] MEDS: fentaNYL 100 MCG/2 ML INJ IVP PRN ×4 (19:55→23:27)
[2016-04-25] MEDS: SEVELAMER HCL 800 MG TAB PO SCH (20:18)
[2016-04-25] MEDS: CHLORHEXIDINE GLUCONATE 15 ML UDL PO SCH (20:28)
[2016-04-25] MEDS ORDERED: niCARdipine/NACL 200 ML IV SCH (20:30)
[2016-04-25] MEDS ORDERED: FUROSEMIDE 40 MG/4 ML VIAL IVP ONE (20:30)
[2016-04-25] MEDS ORDERED: ceFAZolin 2 GM/DEXTROSE 100 ML IV SCH (21:00)
--- NOTE | 2016-04-25 21:16 | POSTOPPROG ---
Post Op Note Date of Operation: 04/25/16 Surgeon: Sherwin Skinner Nailer Hand: Janine Bustos Anesthesiologist: Raphael Anesthesia: GET(General Endotracheal) Pre-op Diagnosis: mediastinal mass Procedure: radical resection of mediastinal mass, LL lobectomy, cardiopulmonary bypass Findings: reconstruction of innonimate vein #8 gortex Inf/Abcess present in the surg proc area at time of surgery?: No EBL: Greater than 1000 (3 blakes)
[2016-04-25] MEDS: DEXMEDETOMIDINE HCL 400 MCG in NS 100 ML IV SCH (22:34)
[2016-04-25 23:08] LABS: CALCULATED OXYGEN SATURATION 90 % (92-95)
[2016-04-25] MEDS ORDERED: NA BICARBONATE 50 MEQ/50 ML VIAL IV ONE (23:30)
[2016-04-25] MEDS ORDERED: D50W 25 GM/50 ML SYR IVP ONE (23:30)
[2016-04-25] MEDS ORDERED: SODIUM POLY SULF 15 GM/60 ML BOTTLE PO ONE (23:30)
[2016-04-25] MEDS ORDERED: INSULIN REGULAR HUMAN 100 UNIT/ML IV ONE (23:30)
--- NOTE | 2016-04-26 00:31 | GPN ---
[f rep st] PROCEDURE NOTE DATE OF PROCEDURE: 04/25/2016 The patient is in ICU with a thrombosed AV fistula. Ultrasound mapping of this fistula was done at the bedside. Ultrasound evaluation reveals a large-bore straight AV fistula graft which is thrombos ed from near its origin at the antecubital space all the way up to the cephalic subclavian junction. He does have a pulsatile open artery feeding this fistula, and no significant collaterals were dem onstrated along the course of the vein. It should be amenable to thrombectomy if necessary. /[id number]/MODL
--- NOTE | 2016-04-26 00:51 | GCON ---
[f rep st] CONSULTATION DATE OF CONSULTATION: 04/25/2016 HISTORY OF PRESENT ILLNESS: The patient is a 45-year-old male, who is in chronic renal failure on d ialysis with a left arm AV fistula. This was occluded this morning because of need for resection of a mediastinal tumor, which was successfully removed by Dr. Skinner. He did have to replace the innom inate vein with a [place] graft. At this point, the AV fistula was clotted and needs to be opened for dialysis access, as well as for maintaining a flow through his brachiocephalic vein graft. The patient is presently intubated and sedated. I can get no real history from the patient. I do not k now how long he has had the graft, although it appears to have been placed in 2013, and appears to b e brachial cephalic AV fistula. Ultrasound of the graft in the ICU now reveals the clot all the way from the origin of the AV fistula all the way up to the shoulder. IMPRESSION AND PLAN: He will need am open thrombectomy, since he is fresh postop and cannot undergo thrombolysis. He will, however, need temporary heparinization even for open thrombectomy, which ap pears to be somewhat dangerous right now as he is immediately postop from major mediastinal surgery and has an ongoing coagulopathy at the moment. Situation was discussed with Dr. Skinner, and we have elected to we until the morning for attempt at AV fistula thrombectomy and salvage, at which time we will be better able to anticoagulate him. There is no family present at this time to discuss the r isks and options, and the patient is sedated on the ventilator. We will re-evaluate in the morning. /[id number]/MODL
[2016-04-26] MEDS: fentaNYL 100 MCG/2 ML INJ IVP PRN ×3 (02:04→05:46)
[2016-04-26 02:13] LABS: HEMATOCRIT 30.4 % (40.0-51.0); HEMOGLOBIN 10.7 g/dL (13.7-17.5); MEAN CELL HEMOGLOBIN 31.8 pg (27.9-34.1); MEAN CELL HEMOGLOBIN CONCENTR. 35.2 g/dL (32.4-36.7); MEAN CELL VOLUME 90.2 fL (81.5-99.8); RED BLOOD CELL COUNT 3.37 10^6/uL (4.40-6.38); RED CELL DISTRIBUTION WIDTH 15.7 % (11.5-15.2)
[2016-04-26 03:38] LABS: CALCULATED OXYGEN SATURATION 98 % (92-95)
[2016-04-26 05:22] LABS: % IMMATURE GRANULYOCYTES 0.2 % (0.0-1.1); ABSOLUTE IMMATURE GRANULOCYTES 0.01 10^3/uL (0.00-0.10); ADD DIFF? NO; ADD MORPH? NO; ADD SCAN? NO; ATYPICAL LYMPHOCYTE FLAG 0 (0-99); FRAGMENT RBC FLAG 20 (0-99); HEMATOCRIT 30.5 % (40.0-51.0); LEFT SHIFT FLG 20 (0-99); LIPEMIA HEMOLYSIS FLAG 90 (0-99); MEAN CELL HEMOGLOBIN 31.6 pg (27.9-34.1); MEAN CELL HEMOGLOBIN CONCENTR. 36.1 g/dL (32.4-36.7); MEAN CELL VOLUME 87.6 fL (81.5-99.8); MEAN PLATELET VOLUME 10.5 fL (8.7-11.7); PLATELET CLUMPS FLAG 0 (0-99); PLATELET COUNT 74 10^3/uL (150-400); RED BLOOD CELL COUNT 3.48 10^6/uL (4.40-6.38); RED CELL DISTRIBUTION WIDTH 15.4 % (11.5-15.2)
[2016-04-26 05:42] LABS: ALBUMIN 2.4 g/dL (3.5-5.0); ANION GAP 10 mEq/L (8-16); CALCIUM 9.1 mg/dL (8.5-10.4); CARBON DIOXIDE 20 mEq/l (22-31); CHLORIDE 111 mEq/L (97-110); CREATININE 5.8 mg/dL (0.7-1.3); GLOMERULAR FILTRATION RATE 11; GLUCOSE 92 mg/dL (70-100); POTASSIUM 4.3 mEq/L (3.5-5.2); SODIUM 141 mEq/L (134-144)
--- NOTE | 2016-04-26 06:58 | SOAPPROG ---
SOAP Progress Note Assessment/Plan: Assessment: POD#1 radical thymectomy with LLLobectomy and goretex reconstruction of innominate vein, on cardiopulmonary bypass, via median sternotomy. SVC compression syndrome by enlarging thymic mass - Lung and innominate vein resection required to fully remove tumor. Await path. Hemodynamically stable early postop course on Cardene. Small air leak controlled by suction. FARM TECHNICIAN assessment prior to orals as vagus/recurrent laryngeal nerves manipulated during resection. Acute on chronic anemia - Expected surgical blood losses compounded by postCPB coagulopathy. Stable s/p transfusion 8u PRBC, 6u FFP, 2u Plt, 2u cryo. No evidence active bleeding. Platelet count remains suppressed, care with re- anticoagulation. ESRD on HD - Access via LUE AVF. Balloon occlusion of fistula to reduce venous flow and facilitate hemostatic control compl by thrombosis of graft. Gen surg consulted for thrombectomy. Temp cath per rt CFV. Fluid management per nephrology. Remote CVA with residual left hemiparesis - Stable. Anticipate inpt rehab for postop reconditioning. Plan: Convert rt CFV cath to dialysis cath. Keep pleurovac to suction. Wean cardene after UF/HD. LUE fistula salvage per gen surg. Extubation per pulm once AVF declotted/revised. 04/26/16 06:50 Subjective: Lightly sedated on vent. Opens eyes and shakes head yes or no. Able to follow simple commands. FULLER. Objective: Vital Signs Temp Pulse Resp BP Pulse Ox 35.6 C L 82 16 133/95 H 100 04/26/16 06:00 04/26/16 06:00 04/26/16 06:00 04/26/16 06:00 04/26/16 06:00 Laboratory Results 04/26/16 05:05 04/26/16 05:05 04/25/16 04/26/16 04/27/16 05:59 05:59 05:59 Intake Total 200 1292 Output Total 1175 Balance 200 117 PT 21.1 SEC (12.0-15.0) H 04/25/16 14:25 INR 1.81 (0.83-1.16) H 04/25/16 14:25 Cardene gtt for MAPs > 100. Kept intubated pending plans for rtn OR for AVF thrombectomy. FIO2 40%. Facial/LUE swelling stable. Hyperkalemia treated with glc/insulin and kayexelate. One additional unit PRBC overnoc. CTOP sl elev but drainage thinning. CXR-> drains in good position, no PTX, min pulm vasc congestion, mild basilar atelectasis Virtually anuric. I/Os +10kg Physical Exam - Physical Exam General Appearance: no apparent distress EENT: other (periorbital edema but able to open eyes) Respiratory: lungs clear (grossly), other (blakes x 3 y-d to pleurovac, serosang drainge, no AL w nl tidal) Cardiac/Chest: regular rate, rhythm, other (Sternotomy grossly stable. Sternal dressing CDI) Abdomen: soft, distended, other (+BS) Skin: warm/dry Extremities: swelling (2+ generalized), other (LUE fistula firm) ICD10 Worksheet Patient Problems: Problems Problem Status Onset Acute blood loss anemia Acute Status post thymectomy Acute ~04/25/16 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
[2016-04-26] MEDS ORDERED: ASPIRIN 81 MG CHEWABLE TAB TUBE PRN (09:00)
[2016-04-26] MEDS ORDERED: PANTOPRAZOLE SODIUM 40 MG TAB PO SCH (09:00)
--- NOTE | 2016-04-26 09:05 | SOAPPROG ---
SOAP Progress Note Assessment/Plan: Assessment: 1. ESRD. Due for HD today per MWF schedule. Markedly volume overloaded. Will attempt UF as tolerated today, dialyze daily for several days until volume status improved. 2. Mediastinal mass. Resected. Lymphoma? LLL lung resection, vein reconstruction , clotted avf. Hemodynamically stable today. Hgb up to 11 this am. 3. Clotted avf. Dr. Bhat to eval for thrombectomy today. Dr. Skinner placed temp R fem HD catheter. Plan: 04/26/16 09:05 04/26/16 09:10 04/26/16 09:12 04/26/16 09:13 Subjective: Underwent resection of mediastinal mass yesterday, LLL lobectomy, occlusion of L arm AVF required d/t bleeding, AVF clotted, received significant fluid/blood product resuscitation perioperatively, >1 L blood loss. Has been hemodynamically stable, actually requiring cardene gtt to control BP over night. Objective: Vital Signs Temp Pulse Resp BP Pulse Ox 35.6 C L 79 16 95/72 L 100 04/26/16 06:00 04/26/16 07:00 04/26/16 06:00 04/26/16 07:00 04/26/16 06:00 Laboratory Results 04/26/16 05:05 04/26/16 05:05 04/25/16 04/26/16 04/27/16 05:59 05:59 05:59 Intake Total 200 1292 Output Total 1175 Balance 200 117 PT 21.1 SEC (12.0-15.0) H 04/25/16 14:25 INR 1.81 (0.83-1.16) H 04/25/16 14:25 +periorbital edema, on vent, awake RRR, no m/g/r CTAB Abdom mildly distended, nontender 2-3+ sacral/UE/LE pitting edema LUE AVF w/o bruit. 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
--- NOTE | 2016-04-26 09:07 | GCON ---
[f rep st] CONSULTATION ADVERTISING WRITER CONSULTATION. HISTORY OF PRESENT ILLNESS: Patient was examined postoperatively after receiving radical thymectomy with left lower lobectomy and a Chicago-Garrett reconstruction of the innominate vein. Patient is a 45-ye ar-old male with a past medical history including end-stage renal disease and a thymoma. He w as admitted on 04/20/2016 for increasing left arm swelling. Thoracic surgery was consulted on 04/22 . Nephrology has also been consulted. On 04/25, he underwent radical resection of mediastinal mass , left lower lobectomy. Currently, patient is sedated and on mechanical ventilation. All history i s gleaned from the medical record. Estimated blood loss was greater than 1000. PAST MEDICAL HISTORY: Significant for end-stage renal disease, thymoma. ALLERGIES: No known allergies to medications. SOCIAL HISTORY: A [id number] smoking history. Notes infrequent alcohol use. He also smokes umair abis. PHYSICAL EXAMINATION: VITAL SIGNS: Blood pressure is 95/72, pulse is 79, respirations 16, temperat ure 35.6, oxygen saturation is 100% on mechanical ventilation. GENERAL: He is a well-developed, we ll-nourished, 45-year-old white male who is sedated on mechanical ventilation. HEENT: Eyes: MEGHA. EOMI. Throat: Endotracheal tube is good position. NECK: Supple. There is no cervical adenopat hy. Median sternotomy is bandaged. HEART: Regular rate and rhythm without murmurs, rubs, gallops. LUNGS: Show a few bibasilar crackles, left greater than right. ABDOMEN: Soft, nontender. Bowel sounds are present in all 4 quadrants. There is no clubbing, cyanosis or edema. LABORATORIES: White count 6.1, hemoglobin of 11, hematocrit 30, platelet count is 74. INR is 1.81. Arterial blood gas: PH 7.43, pCO2 of 30, PO2 of 92, bicarb 21, oxygen saturation 98%. Sodium 141 , potassium 4.3, chloride 111, CO2 is 20, BUN 36, creatinine is 5.8, glucose is 92. IMPRESSION: 1. Thymoma. 2. Superior vena cava syndrome. 3. Status post radical thymectomy with left lower lobectomy and a Chicago-Garrett reconstruction of innomi gene vein. 4. End-stage renal disease. 5. Respiratory failure. Stable on mechanical ventilation. RECOMMENDATIONS: 1. Alcoholism. Wean from mechanical ventilation as tolerated. 2. Aggressive blood pressure control. 3. DVT and PE prophylaxis. Holding anticoagulation for now. 4. Stress ulcer prophylaxis. 5. Aggressive blood sugar control. 6. Continue dialysis. 7. Once extubated, early PT and OT and early ambulation. /[id number]/MODL
[2016-04-26] MEDS: DEXMEDETOMIDINE HCL 400 MCG in NS 100 ML IV SCH ×2 (10:21→19:57)
[2016-04-26] MEDS: CHLORHEXIDINE GLUCONATE 15 ML UDL PO SCH ×2 (10:30→19:58)
[2016-04-26] MEDS: FAMOTIDINE 20 MG/NACL 50 ML IV SCH (10:31)
[2016-04-26] MEDS: CINACALCET HCL 30 MG TAB PO SCH (10:37)
[2016-04-26] MEDS: fentaNYL/NACL 100 ML IV SCH (11:01)
[2016-04-26] MEDS: MUPIROCIN 2% 22 GM OINT NS SCH ×2 (11:12→19:58)
--- NOTE | 2016-04-26 11:13 | GOP ---
[f rep st] OPERATIVE REPORT DATE OF OPERATION: 04/25/2016 SURGEON: Sherwin Skinner DO SQL ENGINEER: Gabe Mcdermott and Janine Valdes. ANESTHESIOLOGIST: Bo Webb. PREOPERATIVE DIAGNOSIS: Thymoma with invasion of mediastinal structures and superior vena caval syndrome with associated right-sided arch and retroesophageal left subclavian. POSTOPERATIVE DIAGNOSIS: Thymoma with invasion of mediastinal structures and superior vena caval syndrome with associated right-sided arch and retroesophageal left subclavian. PROCEDURE PERFORMED: 1. Sternotomy with radical resection of tumor involving pericardium, left lower lobe, left phrenic nerve on cardiopulmonary bypass. 2. Reconstruction of innominate vein with 8 mm Hume-Garrett. 3. Thrombectomy of innominate vein with a #3 balloon. 4. Temporary occlusion of left AV fistula with a 5-Kittitian Dez balloon. FINDINGS: INDICATIONS: This gentleman had a known benign thymic mass biopsied in approximately 2010 in [place], and was told it was benign and nothing needed to be done further. He had been followed by an oncologist here and referred for surgery at the [place], who refused surgery because of the complexity of the lesion and the concerns about resectability and the lack of symptoms at that time. He subsequently developed superior vena caval syndrome, and was admitted to [facility]. He was consented for resection, realizing that it could be incomplete or at least debulking as well as reconstruction of his innominate vein. DESCRIPTION OF PROCEDURE: He was brought to the operating room. A double- lumen endotracheal tube was placed as was a trauma line in the right common femoral vein because of inability to access the right IJ. The left arm was prepped as well as the chest in the standard fashion and legs. We then, using a 7-Kittitian catheter, placed a 5 Dez balloon into the dialysis access site to occlude it in order to decrease the bleeding at the time of resection. We then performed a sternotomy with excessive venous bleeding noted. This was controlled in the standard fashion with cautery. Upon entering the chest, it was very firmly fixed. We spent a great deal of time taking down both pleural reflections including the mammary on the left in order to separate an obvious anterior mediastinal mass which encompassed the entire anterior mediastinum in the thymic region, invading the pericardium and what appeared to be the left lung. We then spent several hours gently dissecting, trying to stay in a plane to leave no residual tumor, although at several points, the capsule of the tumor broke and cells did spill into the pleural space. The phrenic nerve was involved in the mass, and was not able to be without leaving obvious tumor. For that reason, it was transected. The patient had also a right-sided arch which complicated the reconstruction. I was able to peel the tumor away from the innominate vein with moravian of patency, although it appeared to be narrowed and I was concerned about residual tumor that might eventually occlude the innominate vein, and I plan to resect and replace that innominate vein with Gortex at the completion of the procedure. We were able to reflect the tumor from the apex off the pulmonary artery, off the aorta, between the aorta and pulmonary artery, and then identified the left subclavian artery traveling posteriorly and were able to separate the tumor from that as well. At this point, it was quite a ways over in the left chest, and it was quite involved in the hilum of the lung. We were able to separate the hilum of the lung, staying in tissue planes and resecting all gross tumor. At that point, we developed some bleeding from the left inferior pulmonary vein , and because of difficulty in exposure because of the beating heart and difficulty in retracting it, we decided to go on cardiopulmonary bypass. We cannulated the aorta and right atrium in a standard fashion after heparinization. Cardiopulmonary bypass was begun, and the patient was kept warm with the heart beating, never arrested in order to be able to safely expose the left hilum and remainder of the lung. We then were able to completely excise the tumor except for adherence to the mid and lower portion of the left lung. We then did a segmentectomy to remove tumor that was adherent to the lung, leaving the entire left upper lobe and part of the lower lobe. This was performed with staplers, and there was obvious air leak at the completion. BioGlue was applied to those areas to help control the air leak. Inflation of the lung revealed good aeration and based on the vasculature, we felt that we did not compromise blood flow or drainage from that segment. The mass was removed in total and sent to pathology. We then poured warm distilled water into the chest cavity and left it there for some time. We then spent a little time controlling bleeding in the posterior mediastinum and left hilum. We then resumed ventilation and weaned the patient off bypass without difficulty. The heparin was reversed with protamine. Prior to reversing the heparin with protamine, we clamped the innominate vein and resected the majority of it from the vena cava up to the 1st rib, and then sewed an 8 mm Hume-Garrett end-to-side, sweeping it down into the mediastinum in order to have a nice easy sweep to it without kinking it with closing of the sternum. We then spent several hours providing blood products, controlling bleeding after protamine and blood products were administered. He remained hemodynamically stable and when we felt he was no longer bleeding, we then closed the sternum in the standard fashion. I then watched him for several hours in the OR, keeping him warm and watching bleeding. It became evident that he was beginning to distend his neck and facial soft tissues with likely edema, and I was concerned that potentially the graft had clotted, and he was also bleeding more than I was comfortable with. While still in the operating room, I reopened the sternum. Having changed the drapes I found that the graft, in fact, had clotted. I thrombectomized it through a simple incision and removed clot from the proximal portion. It then had excellent patency. There was no kink and it was noted to lie as best I felt that we could make it, sweeping into the vena cava. I also found additional sites of bleeding on the chest wall, likely from the sternal wires from before and along the recurrent laryngeal nerve which had been identified, but was adherent to the mass and required some trauma to separate but was never severed. When all bleeding was controlled, we then reclosed the sternum in the standard fashion. I then entertained trying to reopen the left renal access site. After removing the catheter, I attempted to cut down on it but there was so much scar tissue and I was really above the anastomotic site, that I abandoned it due to lack of clear identification of the graft without damaging it, with the plan of asking Vascular Surgery to reexplore it in a more formal fashion from this access site , either that night or the next day when his bleeding was controlled. They, in fact, stated they would have to use heparin systemically. At that point, I felt that would be inappropriate given his continuous bleeding situation and extensive radical debridement. He was then returned to the ICU in stable condition, having closed the chest in a standard fashion with 3 mediastinal drains and good hemodynamics. /[id number]/MODL MTDD
[2016-04-26] MEDS: ALBUMIN 5% 250 ML IV PRN ×2 (13:00→14:39)
[2016-04-26] MEDS: ASPIRIN 81 MG CHEWABLE TAB PO SCH (14:58)
[2016-04-26] MEDS: SEVELAMER HCL 800 MG TAB PO SCH ×3 (14:59→18:20)
[2016-04-26] MEDS: NOREPINEPHRINE BITARTRATE 16 MG in NS 250 ML IV SCH (15:28)
[2016-04-26] MEDS ORDERED: HEPARIN 50,000 UNIT/10 ML VIAL ONE ×2 (19:34→19:36)
[2016-04-26] MEDS: SENNOSIDES/DOCUSATE SODIUM TAB PO SCH (19:58)
[2016-04-27] MEDS: DEXMEDETOMIDINE HCL 400 MCG in NS 100 ML IV SCH ×5 (03:51→23:32)
[2016-04-27 04:20] LABS: % IMMATURE GRANULYOCYTES 0.3 % (0.0-1.1); ABSOLUTE IMMATURE GRANULOCYTES 0.02 10^3/uL (0.00-0.10); ADD DIFF? NO; ADD MORPH? NO; ADD SCAN? NO; ATYPICAL LYMPHOCYTE FLAG 0 (0-99); FRAGMENT RBC FLAG 0 (0-99); HEMATOCRIT 28.9 % (40.0-51.0); HEMOGLOBIN 10.1 g/dL (13.7-17.5); LEFT SHIFT FLG 10 (0-99); LIPEMIA HEMOLYSIS FLAG 90 (0-99); MEAN CELL HEMOGLOBIN 31.6 pg (27.9-34.1); MEAN CELL HEMOGLOBIN CONCENTR. 34.9 g/dL (32.4-36.7); MEAN CELL VOLUME 90.3 fL (81.5-99.8); MEAN PLATELET VOLUME 13.6 fL (8.7-11.7); PLATELET CLUMPS FLAG 0 (0-99); RED CELL DISTRIBUTION WIDTH 15.9 % (11.5-15.2)
[2016-04-27 04:23] LABS: PLATELET COUNT 46 10^3/uL (150-400)
[2016-04-27 04:41] LABS: ALBUMIN 2.8 g/dL (3.5-5.0); ANION GAP 12 mEq/L (8-16); CALCIUM 8.3 mg/dL (8.5-10.4); CARBON DIOXIDE 21 mEq/l (22-31); CHLORIDE 106 mEq/L (97-110); CREATININE 6.1 mg/dL (0.7-1.3); GLOMERULAR FILTRATION RATE 10; GLUCOSE 129 mg/dL (70-100); POTASSIUM 5.7 mEq/L (3.5-5.2); SODIUM 139 mEq/L (134-144)
[2016-04-27 05:02] LABS: PLATELET ESTIMATE DECREASED (ADEQ)
--- NOTE | 2016-04-27 07:01 | SOAPPROG ---
SOAP Progress Note Assessment/Plan: Assessment: 1. ESRD. Normally on MWF schedule. Markedly volume overloaded. Will attempt UF again as tolerated today, dialyze daily for several days until volume status/K improved. Hyperkalemic today, BUN/Cr up from yesterday. Suspect recirculation through femoral line. Check online kt/v and post dialysis BMP today. 2. Mediastinal mass. Resected. Lymphoma? LLL lung resection, vein reconstruction , clotted avf. Hemodynamically stable today. Levophed prn for dialysis/UF. 3. Clotted avf. Dr. Bhat to attempt open thrombectomy today. Has R fem HD catheter. Labs suggest recirculation. 4. Thrombocytopenia. Will use citrate for catheter locks on dialysis. Plan: 04/26/16 09:05 04/26/16 09:10 04/26/16 09:12 04/26/16 09:13 04/27/16 06:56 04/27/16 06:58 Subjective: Dialyzed yesterday, 3 L removed. Objective: Vital Signs Temp Pulse Resp BP Pulse Ox 36.6 C 68 16 106/83 H 100 04/27/16 02:00 04/27/16 06:00 04/27/16 06:00 04/27/16 06:00 04/27/16 06:00 Laboratory Results 04/27/16 03:50 04/27/16 06:20 04/26/16 04/27/16 04/28/16 05:59 05:59 05:59 Intake Total 1292 1451.5 Output Total 1175 4340 Balance 117 -2888.5 PT 21.1 SEC (12.0-15.0) H 04/25/16 14:25 INR 1.81 (0.83-1.16) H 04/25/16 14:25 Intubated, awake RRR, +S4 gallop CTAB Abdom soft, nt 2+ UE/LE edema L arm AVF with large immobile mass, no thrill Ch tube - 150 cc output since midnight ICD10 Worksheet Patient Problems: Problems Problem Status Onset Acute blood loss anemia Acute Status post thymectomy Acute ~04/25/16 ESRD (end stage renal disease) Chronic Superior vena cava compression syndrome Acute Thymoma 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
--- NOTE | 2016-04-27 07:13 | SOAPPROG ---
SOAP Progress Note Assessment/Plan: POD#2 radical thymectomy with LLLobectomy and goretex reconstruction of innominate vein, on cardiopulmonary bypass, via median sternotomy. SVC compression syndrome by enlarging thymic mass - Lung and innominate vein resection required to fully remove tumor. Await path. Hemodynamically stable early postop course on Cardene. Small air leak controlled by suction. GARAGEMAN assessment prior to orals as vagus/recurrent laryngeal nerves manipulated during resection. Acute on chronic anemia - Expected surgical blood losses compounded by postCPB coagulopathy. Stable s/p transfusion 8u PRBC, 6u FFP, 2u Plt, 2u cryo. No evidence active bleeding. Platelet count remains suppressed, care with re- anticoagulation. HIT sent. ESRD on HD - Access via LUE AVF. Balloon occlusion of fistula to reduce venous flow and facilitate hemostatic control compl by thrombosis of graft. Gen surg plan today for thrombectomy. Temp cath per rt CFV. Fluid and metabolic management per nephrology. Remote CVA with residual left hemiparesis - Stable. Anticipate inpt rehab for postop reconditioning. 04/27/16 09:10 Subjective: Pain well-controlled. ETT is irritating him. Objective: Vital Signs Temp Pulse Resp BP Pulse Ox 36.6 C 68 16 106/83 H 100 04/27/16 02:00 04/27/16 06:00 04/27/16 06:00 04/27/16 06:00 04/27/16 06:00 Laboratory Results 04/27/16 03:50 04/27/16 06:20 04/26/16 04/27/16 04/28/16 05:59 05:59 05:59 Intake Total 1292 1451.5 Output Total 1175 4340 Balance 117 -2888.5 PT 21.1 SEC (12.0-15.0) H 04/25/16 14:25 INR 1.81 (0.83-1.16) H 04/25/16 14:25 Physical Exam - Physical Exam General Appearance: alert, anxiety EENT: No scleral icterus (R), No scleral icterus (L) Neck: normal inspection Respiratory: No respiratory distress Cardiac/Chest: regular rate, rhythm Abdomen: non-tender, soft, No distended Skin: normal color, warm/dry Extremities: No pedal edema Neuro/Psych: no motor/sensory deficits, alert, other (agitated ) ICD10 Worksheet Patient Problems: Problems Problem Status Onset Acute blood loss anemia Acute Status post thymectomy Acute ~04/25/16 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
[2016-04-27] MEDS ORDERED: ALBUMIN 25% 50 ML SOLN IV ONE (07:18)
[2016-04-27] MEDS ORDERED: SODIUM CITRATE 4% 5 ML in SYRINGE 0 ML DIAL ONE (08:00)
[2016-04-27] MEDS: SEVELAMER HCL 800 MG TAB PO SCH ×3 (08:33→17:38)
[2016-04-27] MEDS: ASPIRIN 81 MG CHEWABLE TAB PO SCH (08:38)
[2016-04-27] MEDS: CHLORHEXIDINE GLUCONATE 15 ML UDL PO SCH ×2 (08:38→21:55)
[2016-04-27] MEDS: CINACALCET HCL 30 MG TAB PO SCH (08:42)
[2016-04-27] MEDS: SENNOSIDES/DOCUSATE SODIUM TAB PO SCH ×2 (08:43→21:55)
[2016-04-27] MEDS: FAMOTIDINE 20 MG/NACL 50 ML IV SCH (08:44)
[2016-04-27] MEDS: ALBUMIN 25% 50 ML IV PRN ×3 (08:45→08:48)
[2016-04-27 09:16] LABS: INR 1.3 (0.83-1.16); PROTIME(PATIENT) 16.2 SEC (12.0-15.0)
[2016-04-27 09:17] LABS: APTT 37.6 SEC (23.0-38.0)
--- NOTE | 2016-04-27 10:55 | PDINTPN ---
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 Assessment/Plan: Assessment/Plan: * Thymoma * SVC syndrome * S/P Radical thymectomy with LL Lobectomy with gor-kaushik reconstruction of innominate vein * Resp failure-stable on vent -not ready for extubation * ESRC/polycystic kidney-on dialysis * Clotted dialysis graft-to OR today * Sedation-on precedex -add fentanyl * VTE proph * Stress ulcer proph 40 min of critical care time spent with patient Subjective: sedated Objective: Vital Signs Temp Pulse Resp BP Pulse Ox 36 C 81 17 113/87 H 99 04/27/16 08:00 04/27/16 10:00 04/27/16 10:00 04/27/16 10:00 04/27/16 10:00 Laboratory Results 04/27/16 03:50 04/27/16 08:55 04/26/16 04/27/16 04/28/16 05:59 05:59 05:59 Intake Total 1292 1451.5 Output Total 1175 4340 Balance 117 -2888.5 PT 16.2 SEC (12.0-15.0) H 04/27/16 08:55 INR 1.30 (0.83-1.16) H 04/27/16 08:55 Laboratory Results 04/27/16 03:50 04/27/16 08:55 04/27/16 04/27/16 08:55 03:50 INR 1.30 H (0.83 - 1.16) Calcium 8.3 mg/dL L mg/dL (8.5 - 10.4) Phosphorus 4.9 mg/dL H D mg/dL (2.5 - 4.5) Albumin 2.8 g/dL L g/dL (3.5 - 5.0) - Time Spent With Patient Time Spent With Patient: 40 Physical Exam - Physical Exam General Appearance: other (sedated), No alert EENT: PERRL/EOMI, normal ENT inspection, ET tube Neck: non-tender, full range of motion Respiratory: crackles (few), No respiratory distress, No stridor, No wheezing Cardiac/Chest: normal peripheral pulses, regular rate, rhythm, systolic murmur Peripheral Pulses: 2+: carotid (R), carotid (L), femoral (R), femoral (L), dorsalis-pedis (R), dorsalis-pedis (L) Abdomen: normal bowel sounds, non-tender, soft Male Genitalia: deferred Rectal: deferred Skin: normal color, warm/dry Extremities: non-tender Neuro/Psych: No alert ICD10 Worksheet Patient Problems: Problems Problem Status Onset Acute blood loss anemia Acute Status post thymectomy Acute ~04/25/16 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
[2016-04-27] MEDS ORDERED: PAPAVERINE HCL 60 MG/2 ML SDV ONE (11:11)
[2016-04-27] MEDS ORDERED: BUPIVACAINE 0.5% 30 ML SDV ONE (11:11)
[2016-04-27] MEDS ORDERED: HYDROmorphONE/DILAUDID 2 MG/ML INJ ONE (11:16)
[2016-04-27] MEDS ORDERED: CISATRACURIUM BESYLATE 20 MG/10 ML VIAL IV ONE (11:17)
[2016-04-27] MEDS ORDERED: PHENYLEPHRINE HCL 100 MCG/ML SYR ONE ×2 (11:32→13:05)
[2016-04-27] MEDS ORDERED: HEPARIN 10,000 UNIT/10 ML MDV ONE (11:42)
[2016-04-27] MEDS ORDERED: ceFAZolin 1 GM VIAL ONE (11:45)
[2016-04-27] MEDS ORDERED: IOTHALAMATE MEG (CONRAY) 50 ML VIAL IV ONE (11:59)
[2016-04-27] MEDS ORDERED: PROTAMINE SULFATE 50 MG/5 ML VIAL IVP ONE (12:14)
[2016-04-27] MEDS ORDERED: MIDAZOLAM 2 MG/2 ML VIAL ONE (13:35)
[2016-04-27] MEDS ORDERED: THROMBIN (RECOMBINANT) 20,000 UNIT SPRAY TP ONE (13:44)
[2016-04-27] MEDS ORDERED: TRANEXAMIC ACID IV ONE (14:00)
[2016-04-27] MEDS ORDERED: NS IV ONE (14:00)
[2016-04-27] MEDS ORDERED: HEPARIN 50,000 UNIT/10 ML VIAL IV ONE (14:30)
[2016-04-27 15:09] LABS: % IMMATURE GRANULYOCYTES 0.5 % (0.0-1.1); ABSOLUTE IMMATURE GRANULOCYTES 0.06 10^3/uL (0.00-0.10); ADD DIFF? NO; ADD MORPH? NO; ADD SCAN? NO; ATYPICAL LYMPHOCYTE FLAG 0 (0-99); FRAGMENT RBC FLAG 0 (0-99); HEMATOCRIT 35.7 % (40.0-51.0); LEFT SHIFT FLG 50 (0-99); LIPEMIA HEMOLYSIS FLAG 80 (0-99); MEAN CELL HEMOGLOBIN 29.9 pg (27.9-34.1); MEAN CELL HEMOGLOBIN CONCENTR. 33.6 g/dL (32.4-36.7); MEAN CELL VOLUME 88.8 fL (81.5-99.8); MEAN PLATELET VOLUME 10.5 fL (8.7-11.7); PLATELET CLUMPS FLAG 10 (0-99); PLATELET COUNT 114 10^3/uL (150-400); RED BLOOD CELL COUNT 4.02 10^6/uL (4.40-6.38); RED CELL DISTRIBUTION WIDTH 14.9 % (11.5-15.2)
[2016-04-27] MEDS ORDERED: NALOXONE HCL 0.4 MG/ML INJ IVP PRN (15:09)
--- NOTE | 2016-04-27 15:12 | POSTANESTH ---
Post Anesthetic Evaluation Cardiovascular Status: Tx Hyper/Hypo-tension, Other, See Comment Respiratory Status: Other, See Comment Level of Consciousness/Mental Status: Unconscious Complications Possibly Related to Anesthesia: Other, See Comments (Pt returned to ICU intubated and ventilated as he was when he went to the OR. Pt had massive blood loss in OR with increase in pressor infusion. Guarded condition. Did receive Versed when other anesthesia reduced to preserve BP as much as possible. Pt extremities cold and vasoconstricted. 3rd unit of pRBC hanging, a 4th is available. FFP and 2nd platelet had to be returned to blood bank as it did not arrive in time to administer in OR. ICU staff aware of availability of products.)
[2016-04-27 15:17] LABS: INR 1.61 (0.83-1.16); PROTIME(PATIENT) 19.2 SEC (12.0-15.0)
[2016-04-27 15:26] LABS: CALCULATED OXYGEN SATURATION 87 % (92-95)
[2016-04-27] MEDS ORDERED: SODIUM BICARBONATE 50 MEQ/50 ML SYR ONE ×2 (15:28)
[2016-04-27] MEDS ORDERED: SODIUM BICARBONATE 50 MEQ/50 ML SYR IVP ONE ×2 (15:32→15:33)
[2016-04-27 15:41] LABS: ANION GAP 14 mEq/L (8-16); APTT 181.9 SEC (23.0-38.0); CALCIUM 7.3 mg/dL (8.5-10.4); CARBON DIOXIDE 23 mEq/l (22-31); CHLORIDE 103 mEq/L (97-110); CREATININE 4.7 mg/dL (0.7-1.3); GLOMERULAR FILTRATION RATE 14; GLUCOSE 172 mg/dL (70-100); SODIUM 140 mEq/L (134-144)
[2016-04-27 16:57] LABS: BASE EXCESS -0.9 mEq/L (-2.5-2.5); BICARBONATE 23 mEq/L (22-26); MEASURED OXYGEN SATURATION 96 % (92-95); PCO2 31 mmHg (34-38); PO2 68 mmHg (65-75); TCO2 24 mEq/L (23-27)
[2016-04-27 16:58] LABS: END TIDAL CO2 28; O2 CONCENTRATIION 60 % (0-100); P/F RATIO 113 RATIO; PATIENT RATE 16; PRESSURE SUPPORT 7
[2016-04-27] MEDS: NOREPINEPHRINE BITARTRATE 16 MG in NS 250 ML IV SCH (19:52)
[2016-04-27] MEDS: fentaNYL/NACL 100 ML IV SCH (23:32)
[2016-04-28] MEDS ORDERED: PROPOFOL/EMULSION 100 ML IV SCH (01:10)
[2016-04-28] MEDS ORDERED: PROPOFOL/EMULSION 1,000 MG/100 ML BOTTLE IV ONE (01:14)
[2016-04-28 04:35] LABS: ALBUMIN 3.1 g/dL (3.5-5.0); ANION GAP 15 mEq/L (8-16); CALCIUM 7.5 mg/dL (8.5-10.4); CARBON DIOXIDE 24 mEq/l (22-31); CHLORIDE 103 mEq/L (97-110); CREATININE 4.7 mg/dL (0.7-1.3); GLOMERULAR FILTRATION RATE 14; GLUCOSE 101 mg/dL (70-100); POTASSIUM 4.4 mEq/L (3.5-5.2); SODIUM 142 mEq/L (134-144)
[2016-04-28 06:35] LABS: % IMMATURE GRANULYOCYTES 0.2 % (0.0-1.1); ABSOLUTE IMMATURE GRANULOCYTES 0.02 10^3/uL (0.00-0.10); ADD DIFF? NO; ADD MORPH? NO; ADD SCAN? NO; ATYPICAL LYMPHOCYTE FLAG 0 (0-99); FRAGMENT RBC FLAG 10 (0-99); HEMATOCRIT 27.1 % (40.0-51.0); HEMOGLOBIN 9.7 g/dL (13.7-17.5); LEFT SHIFT FLG 20 (0-99); LIPEMIA HEMOLYSIS FLAG 90 (0-99); MEAN CELL HEMOGLOBIN 31.3 pg (27.9-34.1); MEAN CELL HEMOGLOBIN CONCENTR. 35.8 g/dL (32.4-36.7); MEAN CELL VOLUME 87.4 fL (81.5-99.8); MEAN PLATELET VOLUME 11.3 fL (8.7-11.7); PLATELET CLUMPS FLAG 0 (0-99); PLATELET COUNT 94 10^3/uL (150-400); RED CELL DISTRIBUTION WIDTH 15.2 % (11.5-15.2)
--- NOTE | 2016-04-28 07:52 | SOAPPROG ---
SOAP Progress Note Assessment/Plan: Assessment: POD#3 radical thymectomy with LLLobectomy and goretex reconstruction of innominate vein, on cardiopulmonary bypass, via median sternotomy. SVC compression syndrome by enlarging thymic mass - Lung and innominate vein resection required to fully remove tumor. Await path. Hemodynamically stable early postop course. Small air leak controlled by suction. GRAVEL ROOFER assessment prior to orals as vagus/recurrent laryngeal nerves manipulated during resection. Acute on chronic anemia - Expected surgical blood losses compounded by postCPB coagulopathy and AVF exploration. Additional PRBC prn BP support on dialysis. No evidence active bleeding. Platelet count yet to rebound. HIT Ab pending. SQ hep avoided. ESRD on HD - Access via LUE AVF. Balloon occlusion of fistula to reduce venous flow and facilitate hemostatic control compl by thrombosis of graft. Gen surg attempt to re-establish flow compl by lg blood loss. Unclear whether AVF usable. May need to return to OR. Temp cath per rt CFV for now. Fluid management per nephrology. Remote CVA with residual left hemiparesis - Stable. Anticipate inpt rehab for postop reconditioning. Plan: CPAP trials per pulm. Nutrition per DHT if no imminent extubation. Keep pleurovac to suction. PRBC and low dose levo as needed to tolerate UF/HD. 04/28/16 07:48 Subjective: Sedated on vent and HD. Objective: Vital Signs Temp Pulse Resp BP Pulse Ox 36.6 C 115 H 16 107/76 96 04/27/16 23:00 04/28/16 07:00 04/28/16 07:00 04/28/16 07:00 04/28/16 07:00 Laboratory Results 04/28/16 06:20 04/28/16 03:40 04/27/16 04/28/16 04/29/16 05:59 05:59 05:59 Intake Total 1451.5 560.4 Output Total 4340 3210 Balance -2888.5 -2649.6 PT 19.2 SEC (12.0-15.0) H 04/27/16 15:00 INR 1.61 (0.83-1.16) H 04/27/16 15:00 Stable HR and BP off HD. 1-2 mcg levo for SBP > 90 during HD. Agitated and intolerant of CPAP thus far. ~6 L UF last 48hr w notable improvement in edema. CXR rt sided sq air and tiny apical PTX. Pleurovac with froth in all tubes, intermittent AL. CTOP thin and dissipating. 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
[2016-04-28] MEDS: CHLORHEXIDINE GLUCONATE 15 ML UDL PO SCH ×2 (08:06→21:50)
[2016-04-28] MEDS: FAMOTIDINE 20 MG/NACL 50 ML IV SCH (08:07)
[2016-04-28] MEDS: SEVELAMER HCL 800 MG TAB PO SCH ×2 (08:07→10:10)
[2016-04-28] MEDS: CINACALCET HCL 30 MG TAB PO SCH (08:07)
[2016-04-28] MEDS ORDERED: ACETAMINOPHEN 650 MG/20.3 ML UDCUP PO PRN (08:13)
[2016-04-28] MEDS ORDERED: ACETAMINOPHEN 650 MG/20.3 ML UDCUP TUBE PRN (08:26)
[2016-04-28] MEDS ORDERED: POLYETHYLENE GLYCOL 3350 17 GM PKT TUBE PRN (08:35)
[2016-04-28] MEDS ORDERED: ZOLPIDEM TARTRATE 5 MG TAB TUBE PRN (08:36)
--- NOTE | 2016-04-28 08:44 | PDINTPN ---
Nurse Practitioner Progress Note Assessment/Plan: Assessment/Plan: * Thymoma * SVC syndrome * S/P Radical thymectomy with LL Lobectomy with gor-kaushik reconstruction of innominate vein * Resp failure-stable on vent -assess for extubation once off dialysis * ESRC/polycystic kidney-on dialysis * Clotted dialysis graft-to OR today * Sedation-off precedex. Will restart prior to extubation assessment -add fentanyl * VTE proph * Stress ulcer proph * Nutrition-none now. If not able to extubate, will start TF 35 min of critical care time spent with patient Subjective: awake. Periods of agitation and confusion last pm Objective: Vital Signs Temp Pulse Resp BP Pulse Ox 37.1 C 106 H 21 H 92/66 L 99 04/28/16 08:00 04/28/16 08:34 04/28/16 08:34 04/28/16 08:00 04/28/16 08:34 Laboratory Results 04/28/16 06:20 04/28/16 03:40 04/27/16 04/28/16 04/29/16 05:59 05:59 05:59 Intake Total 1451.5 560.4 Output Total 4340 3210 Balance -2888.5 -2649.6 PT 19.2 SEC (12.0-15.0) H 04/27/16 15:00 INR 1.61 (0.83-1.16) H 04/27/16 15:00 Laboratory Results 04/28/16 06:20 04/28/16 03:40 04/28/16 04/27/16 03:40 16:45 Patient Temperature 34.0 DEGREES DEGREES pCO2 31 mmHg L mmHg (34 - 38) pO2 68 mmHg mmHg (65 - 75) Total CO2 24 mEq/L mEq/L (23 - 27) ABG pH 7.46 H (7.35 - 7.45) ABG PO2/FiO2 Ratio 113 RATIO RATIO ABG O2 Saturation 96 % H % (92 - 95) ABG Base Excess -0.9 mEq/L mEq/L (-2.5 - 2.5) O2 Concentration % 60 % % Actual Respiration Rate 16 Set Respiration Rate 16 Tidal Volume 600 End Tidal CO2 28 PEEP 5 Pressure Support 7 Calcium 7.5 mg/dL L mg/dL (8.5 - 10.4) Phosphorus 4.0 mg/dL mg/dL (2.5 - 4.5) Albumin 3.1 g/dL L g/dL (3.5 - 5.0) CXR- reviewed by myself. ETT okay. SQ emphysema. possible apical ptx - Time Spent With Patient Time Spent With Patient: 35 Physical Exam - Physical Exam General Appearance: other (awake), No alert EENT: PERRL/EOMI, ET tube Neck: non-tender, full range of motion Respiratory: decreased breath sounds, prolonged expiration, other (SQ air), No wheezing Cardiac/Chest: normal peripheral pulses, regular rate, rhythm, systolic murmur Abdomen: normal bowel sounds, non-tender, soft Male Genitalia: deferred Rectal: deferred Skin: normal color, warm/dry Extremities: normal range of motion, non-tender, normal inspection, normal capillary refill ICD10 Worksheet Patient Problems: Problems Problem Status Onset Acute blood loss anemia Acute Status post thymectomy Acute ~04/25/16 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
[2016-04-28] MEDS ORDERED: SENNOSIDES 17.6 MG/10 ML UDL PO SCH (09:00)
[2016-04-28] MEDS ORDERED: SENNOSIDES 17.6 MG/10 ML UDL TUBE SCH (09:00)
[2016-04-28] MEDS ORDERED: SODIUM CITRATE 4% 5 ML in SYRINGE 0 ML DIAL PRN (09:15)
[2016-04-28] MEDS ORDERED: ALTEPLASE 2 MG VIAL IVP ONE ×2 (10:00)
[2016-04-28] MEDS: ASPIRIN 81 MG CHEWABLE TAB TUBE SCH (10:11)
--- NOTE | 2016-04-28 10:29 | SOAPPROG ---
SO[place]OR[place] Progress Note Assessment/Plan: Assessment/Plan: ESRD: on HD MWF. - Will do HD today per routine. - Will continue to monitor HD needs closely through the weekend. Hyperkalemia: improved with HD, will continue to modulate with HD. Access: thrombectomy done yesterday, complicated with large blood loss, unclear if it is usable. Pt with temporary catheter, will continue to monitor his access for now, appreciate involvement of surgery. KENNEY: Phos 4.0, will hold Sevelamer for now. Subjective: Pt went to OR yesterday with significant blood loss, got multiple units of PRBCs yesterday and getting another unit today. Line changed yesterday, dialyzed yesterday evening and now again dialyzing. Objective: Vital Signs Temp Pulse Resp BP Pulse Ox 37.6 C 113 H 16 94/70 L 100 04/28/16 09:00 04/28/16 10:00 04/28/16 10:00 04/28/16 10:00 04/28/16 10:00 Laboratory Results 04/28/16 06:20 04/28/16 03:40 04/27/16 04/28/16 04/29/16 05:59 05:59 05:59 Intake Total 1451.5 560.4 Output Total 4340 3210 Balance -2888.5 -2649.6 PT 19.2 SEC (12.0-15.0) H 04/27/16 15:00 INR 1.61 (0.83-1.16) H 04/27/16 15:00 General: awake, alert Eyes: EOMI, PERRL OP: Intubated CV: RRR Resp: intubated and on vent Abd: Soft, NT Ext: +trace edema BLE, +2/4 radial and dorsalis pedis pulses Neuro: CN II-XII grossly intact Access: R femoral temporary catheter, L AVF bandaged ICD10 Worksheet Patient Problems: Problems Problem Status Onset Acute blood loss anemia Acute Status post thymectomy Acute ~04/25/16 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
[2016-04-28 14:44] LABS: BASE EXCESS -2.2 mEq/L (-2.5-2.5); BICARBONATE 21 mEq/L (22-26); MEASURED OXYGEN SATURATION 93 % (92-95); PCO2 31 mmHg (34-38); PO2 67 mmHg (65-75); TCO2 22 mEq/L (23-27)
[2016-04-28 14:45] LABS: CPAP YES; O2 CONCENTRATIION 40 % (0-100); P/F RATIO 168 RATIO; PATIENT RATE 35
[2016-04-28 14:46] LABS: END TIDAL CO2 34; PRESSURE SUPPORT 7
--- NOTE | 2016-04-28 15:03 | SOAPPROG ---
SORAYA Progress Note Assessment/Plan: Assessment: 45 yo man w ESRD on HD who p/w mild/mod SVC syndrome due to large thymoma and vascular anomalies 1. Thymoma - Status post resection with vein graft, pod 3 2. SVC syndrome - SVC compromised by high aortic arch compressing SVC on R ( anatomic abnormality) in addition to thymic mass compression on left No indication for endovascular stent. hopefully will improve post surgery 3. ESRD - HD 3x/week; due to PCKD Plan:Review path when available 04/24/16 14:57 04/28/16 15:01 Objective: Vital Signs Temp Pulse Resp BP Pulse Ox 99.9 F 110 H 16 98/73 L 100 04/28/16 12:00 04/28/16 14:00 04/28/16 14:00 04/28/16 14:00 04/28/16 14:00 Laboratory Results 04/28/16 06:20 04/28/16 03:40 04/27/16 04/28/16 04/29/16 05:59 05:59 05:59 Intake Total 1451.5 560.4 Output Total 4340 3210 1999 Balance -2888.5 -2649.6 -1999 PT 19.2 SEC (12.0-15.0) H 04/27/16 15:00 INR 1.61 (0.83-1.16) H 04/27/16 15:00 ICD10 Worksheet Patient Problems: Problems Problem Status Onset Acute blood loss anemia Acute Status post thymectomy Acute ~04/25/16 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
[2016-04-28 16:35] LABS: % IMMATURE GRANULYOCYTES 0.3 % (0.0-1.1); ABSOLUTE IMMATURE GRANULOCYTES 0.02 10^3/uL (0.00-0.10); ADD DIFF? NO; ADD MORPH? NO; ADD SCAN? NO; ATYPICAL LYMPHOCYTE FLAG 0 (0-99); FRAGMENT RBC FLAG 0 (0-99); HEMATOCRIT 28.8 % (40.0-51.0); HEMOGLOBIN 10.1 g/dL (13.7-17.5); LEFT SHIFT FLG 80 (0-99); LIPEMIA HEMOLYSIS FLAG 90 (0-99); MEAN CELL HEMOGLOBIN 31.5 pg (27.9-34.1); MEAN CELL HEMOGLOBIN CONCENTR. 35.1 g/dL (32.4-36.7); MEAN CELL VOLUME 89.7 fL (81.5-99.8); MEAN PLATELET VOLUME 11.3 fL (8.7-11.7); PLATELET CLUMPS FLAG 10 (0-99); PLATELET COUNT 64 10^3/uL (150-400); RED BLOOD CELL COUNT 3.21 10^6/uL (4.40-6.38); RED CELL DISTRIBUTION WIDTH 15.1 % (11.5-15.2)
[2016-04-28 16:49] LABS: ANION GAP 15 mEq/L (8-16); CALCIUM 7.9 mg/dL (8.5-10.4); CARBON DIOXIDE 24 mEq/l (22-31); CHLORIDE 102 mEq/L (97-110); CREATININE 4.3 mg/dL (0.7-1.3); GLOMERULAR FILTRATION RATE 15; GLUCOSE 91 mg/dL (70-100); POTASSIUM 4.2 mEq/L (3.5-5.2); SODIUM 141 mEq/L (134-144)
--- NOTE | 2016-04-28 17:26 | SOAPPROG ---
SOAP Progress Note Assessment/Plan: Assessment: 45yo male s/p thrombectomy of fistula graft in Left arm 04/[address] Bhat. S/p thymectomy, LL lobectomy for thymoma. Resp failure (seen earlier today) On vent, awakens to stimuli Left arm bandage dry, moderate edema, normal radius pulse to palpation, arm warm Plan: Pt most likely has a clot more central that was not able to be evacuated during surgery 04/27 unclear if fistula will be able to be used, may clot further given that pt cannot have anticoagulation discussed with Dr Bhat 04/28/16 17:20 Objective: Vital Signs Temp Pulse Resp BP Pulse Ox 37.2 C 108 H 17 133/91 H 100 04/28/16 16:00 04/28/16 17:00 04/28/16 17:00 04/28/16 17:00 04/28/16 17:00 Laboratory Results 04/28/16 16:15 04/28/16 16:15 04/27/16 04/28/16 04/29/16 05:59 05:59 05:59 Intake Total 1451.5 560.4 Output Total 4340 3210 2360 Balance -2888.5 -2649.6 -2360 PT 19.2 SEC (12.0-15.0) H 04/27/16 15:00 INR 1.61 (0.83-1.16) H 04/27/16 15:00 ICD10 Worksheet Patient Problems: Problems Problem Status Onset Acute blood loss anemia Acute Status post thymectomy Acute ~04/25/16 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
[2016-04-28] MEDS: HYDROCODONE/APAP 5/325 TAB TUBE PRN ×2 (20:10→21:50)
[2016-04-28] MEDS ORDERED: CARBOXYMETHYLCELLULOSE 0.5% 0.4 ML DROPERETTE EACHEYE PRN (23:00)
[2016-04-29 04:42] LABS: BASE EXCESS -1.1 mEq/L (-2.5-2.5); BICARBONATE 22 mEq/L (22-26); MEASURED OXYGEN SATURATION 97 % (92-95); PCO2 35 mmHg (34-38); PO2 90 mmHg (65-75); TCO2 23 mEq/L (23-27)
[2016-04-29 04:44] LABS: CPAP YES; END TIDAL CO2 36; O2 CONCENTRATIION 40 % (0-100); P/F RATIO 225 RATIO; PATIENT RATE 24; PRESSURE SUPPORT 7
[2016-04-29 05:05] LABS: MEAN CELL HEMOGLOBIN 30.7 pg (27.9-34.1); MEAN CELL HEMOGLOBIN CONCENTR. 34.4 g/dL (32.4-36.7); MEAN CELL VOLUME 89.4 fL (81.5-99.8); RED BLOOD CELL COUNT 3.58 10^6/uL (4.40-6.38); RED CELL DISTRIBUTION WIDTH 15.4 % (11.5-15.2)
[2016-04-29 05:24] LABS: ALBUMIN 3.5 g/dL (3.5-5.0); ANION GAP 13 mEq/L (8-16); CALCIUM 8.2 mg/dL (8.5-10.4); CARBON DIOXIDE 23 mEq/l (22-31); CHLORIDE 103 mEq/L (97-110); CREATININE 5.5 mg/dL (0.7-1.3); GLOMERULAR FILTRATION RATE 11; GLUCOSE 111 mg/dL (70-100); POTASSIUM 3.5 mEq/L (3.5-5.2); SODIUM 139 mEq/L (134-144)
[2016-04-29] MEDS: HYDROCODONE/APAP 5/325 TAB TUBE PRN (06:35)
--- NOTE | 2016-04-29 07:24 | SOAPPROG ---
SOAP Progress Note Assessment/Plan: POD#4 radical thymectomy with LLLobectomy and goretex reconstruction of innominate vein, on cardiopulmonary bypass, via median sternotomy. SVC compression syndrome by enlarging thymic mass - Lung and innominate vein resection required to fully remove tumor. Await path. Hemodynamically stable early postop course on Cardene. Small air leak controlled by suction. REVIEW RN assessment prior to orals as vagus/recurrent laryngeal nerves manipulated during resection. Acute on chronic anemia - Expected surgical blood losses compounded by postCPB coagulopathy. Stable s/p transfusion 8u PRBC, 6u FFP, 2u Plt, 2u cryo. No evidence active bleeding. Platelet count remains suppressed, care with re- anticoagulation. HIT sent. ESRD on HD - Access via LUE AVF. Balloon occlusion of fistula to reduce venous flow and facilitate hemostatic control compl by thrombosis of graft. Gen surg plan today for thrombectomy. Temp cath per rt CFV. Fluid and metabolic management per nephrology. Remote CVA with residual left hemiparesis - Stable. Anticipate inpt rehab for postop reconditioning. 04/27/16 09:10 04/29/16 07:23 Subjective: Comfortable. Objective: Vital Signs Temp Pulse Resp BP Pulse Ox 37.2 C 89 16 116/79 100 04/29/16 04:00 04/29/16 06:00 04/29/16 06:00 04/29/16 06:00 04/29/16 06:00 Laboratory Results 04/29/16 04:50 04/29/16 04:50 04/28/16 04/29/16 04/30/16 05:59 05:59 05:59 Intake Total 560.4 928 Output Total 3210 2820 Balance -2649.6 -1892 PT 19.2 SEC (12.0-15.0) H 04/27/16 15:00 INR 1.61 (0.83-1.16) H 04/27/16 15:00 Physical Exam - Physical Exam General Appearance: alert, no apparent distress EENT: No scleral icterus (R), No scleral icterus (L) Neck: normal inspection Respiratory: No respiratory distress Cardiac/Chest: regular rate, rhythm Abdomen: non-tender, soft, No distended Skin: normal color, warm/dry Extremities: No pedal edema Neuro/Psych: no motor/sensory deficits, alert ICD10 Worksheet Patient Problems: Problems Problem Status Onset Acute blood loss anemia Acute Status post thymectomy Acute ~04/25/16 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
[2016-04-29] MEDS ORDERED: ONDANSETRON DISINTEGRATING 4 MG TAB TUBE PRN (07:53)
[2016-04-29] MEDS ORDERED: LACTULOSE 20 GM/30 ML UDCUP TUBE PRN (07:53)
[2016-04-29] MEDS: ASPIRIN 81 MG CHEWABLE TAB TUBE SCH (08:13)
--- NOTE | 2016-04-29 08:52 | PDINTPN ---
Loader Operator Progress Note Assessment/Plan: Assessment/Plan: * Thymoma * SVC syndrome * S/P Radical thymectomy with LL Lobectomy with gor-kaushik reconstruction of innominate vein * Resp failure-stable on vent. Did well on CPAP trial -will extubate patient. -will have anesthesia present as he was a difficult airway * ESRC/polycystic kidney-on dialysis * Clotted dialysis graft-to OR today * Sedation-off precedex. Will restart prior to extubation assessment -add fentanyl * VTE proph * Stress ulcer proph * Nutrition-none now. 40 min of critical care time spent with patient Subjective: Awake and alert Objective: Vital Signs Temp Pulse Resp BP Pulse Ox 37.2 C 92 16 113/81 H 98 04/29/16 04:00 04/29/16 07:00 04/29/16 07:00 04/29/16 07:00 04/29/16 07:00 Laboratory Results 04/29/16 04:50 04/29/16 04:50 04/28/16 04/29/16 04/30/16 05:59 05:59 05:59 Intake Total 560.4 928 Output Total 3210 2820 Balance -2649.6 -1892 PT 19.2 SEC (12.0-15.0) H 04/27/16 15:00 INR 1.61 (0.83-1.16) H 04/27/16 15:00 Laboratory Results 04/29/16 04:50 04/29/16 04:50 04/29/16 04/29/16 04:50 04:30 Patient Temperature 37.0 DEGREES DEGREES pCO2 35 mmHg mmHg (34 - 38) pO2 90 mmHg H mmHg (65 - 75) Total CO2 23 mEq/L mEq/L (23 - 27) ABG pH 7.42 (7.35 - 7.45) ABG PO2/FiO2 Ratio 225 RATIO RATIO ABG O2 Saturation 97 % H % (92 - 95) ABG Base Excess -1.1 mEq/L mEq/L (-2.5 - 2.5) O2 Concentration % 40 % % Actual Respiration Rate 24 End Tidal CO2 36 PEEP 5 Pressure Support 7 CPAP YES Calcium 8.2 mg/dL L mg/dL (8.5 - 10.4) Phosphorus 3.2 mg/dL mg/dL (2.5 - 4.5) Albumin 3.5 g/dL g/dL (3.5 - 5.0) - Time Spent With Patient Time Spent With Patient: 40 Physical Exam - Physical Exam General Appearance: WD/WN, alert, No mild distress EENT: PERRL/EOMI, normal ENT inspection, ET tube Neck: non-tender, full range of motion Respiratory: chest non-tender, lungs clear, No accessory muscle use, No wheezing Cardiac/Chest: normal peripheral pulses, regular rate, rhythm, systolic murmur Peripheral Pulses: 2+: carotid (R), carotid (L), femoral (R), femoral (L), dorsalis-pedis (R), dorsalis-pedis (L) Abdomen: normal bowel sounds, non-tender, soft Male Genitalia: deferred Rectal: deferred Skin: normal color, warm/dry Extremities: normal range of motion, non-tender, normal inspection, normal capillary refill Neuro/Psych: alert ICD10 Worksheet Patient Problems: Problems Problem Status Onset Acute blood loss anemia Acute Status post thymectomy Acute ~04/25/16 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
--- NOTE | 2016-04-29 09:02 | SOAPPROG ---
[place] Progress Note Assessment/Plan: Assessment/Plan: ESRD: on HD MWF. - Will plan on next HD on Sunday. - Will continue to monitor HD needs closely through the weekend. Hyperkalemia: improved with HD, will continue to modulate with HD. Access: thrombectomy done , complicated with large blood loss, does not currently appear usable. Pt with temporary catheter, will continue to monitor his access for now, appreciate involvement of surgery. KENNEY: Phos 3.2, holding Sevelamer for now. Subjective: No acute events overnight. Hgb improved s/p transfusion. HD done yesterday with appx 2L removed, tolerated well. Likely to be extubated this am. Objective: Vital Signs Temp Pulse Resp BP Pulse Ox 37.2 C 92 16 113/81 H 98 04/29/16 04:00 04/29/16 07:00 04/29/16 07:00 04/29/16 07:00 04/29/16 07:00 Laboratory Results 04/29/16 04:50 04/29/16 04:50 04/28/16 04/29/16 04/30/16 05:59 05:59 05:59 Intake Total 560.4 928 Output Total 3210 2820 Balance -2649.6 -1892 PT 19.2 SEC (12.0-15.0) H 04/27/16 15:00 INR 1.61 (0.83-1.16) H 04/27/16 15:00 General: awake, alert, no acute distress Eyes; EOMI, PERRL OP: intubated CV: RRR Resp: intubated and on vent Abd; Soft, NT Ext: +1 edema LUE, no edema BLE Neuro: CN II-XII grossly intact Access: R femoral temp cath, LUE AVG with no thrill or bruit appreciated ICD10 Worksheet Patient Problems: Problems Problem Status Onset Acute blood loss anemia Acute Status post thymectomy Acute ~04/25/16 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
[2016-04-29] MEDS: CHLORHEXIDINE GLUCONATE 15 ML UDL PO SCH ×2 (09:32→19:32)
--- NOTE | 2016-04-29 10:42 | SOAPPROG ---
SORAYA Progress Note Assessment/Plan: Assessment: s/p thrombectomy LUE but problem is central. Has distal radial pulse. 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
[2016-04-29] MEDS ORDERED: PANTOPRAZOLE SODIUM 40 MG in NS 100 ML IV SCH (11:00)
[2016-04-29] MEDS: LANSOPRAZOLE SUSP 30MG/10ML UDSYR (Adult) TUBE SCH (11:04)
[2016-04-29] MEDS: fentaNYL 100 MCG/2 ML INJ IVP PRN ×4 (13:51→21:38)
[2016-04-29 17:11] LABS: HEPARIN INDUCED ANTIBODY Negative (Negative); REACTIVITY 4 % (<20)
[2016-04-30] MEDS: fentaNYL 100 MCG/2 ML INJ IVP PRN ×5 (00:27→19:41)
--- NOTE | 2016-04-30 05:40 | PDINTPN ---
Instructional Specialist Progress Note Assessment/Plan: Assessment/Plan: * Thymoma * SVC syndrome * S/P Radical thymectomy with LL Lobectomy with gor-kaushik reconstruction of innominate vein * Resp failure-stable off vent * ESRC/polycystic kidney-likely dialysis today * Clotted dialysis graft- * Sedation-off * VTE proph * Stress ulcer proph * Nutrition-none now. Subjective: Resting comfortably. Objective: Vital Signs Temp Pulse Resp BP Pulse Ox 37.2 C 102 H 20 125/90 H 98 04/29/16 20:00 04/30/16 04:00 04/30/16 04:00 04/30/16 04:00 04/30/16 04:00 Laboratory Results 04/29/16 04:50 04/29/16 04:50 04/28/16 04/29/16 04/30/16 05:59 05:59 05:59 Intake Total 560.4 928 197 Output Total 3210 2820 784 Balance -2649.6 -1892 -587 PT 19.2 SEC (12.0-15.0) H 04/27/16 15:00 INR 1.61 (0.83-1.16) H 04/27/16 15:00 Physical Exam - Physical Exam General Appearance: alert, no apparent distress EENT: PERRL/EOMI Neck: supple, No non-tender Respiratory: chest non-tender, crackles (few) Cardiac/Chest: normal peripheral pulses, regular rate, rhythm Peripheral Pulses: 2+: carotid (R), carotid (L), femoral (R), femoral (L), dorsalis-pedis (R), dorsalis-pedis (L) Abdomen: normal bowel sounds, non-tender, soft Male Genitalia: deferred Rectal: deferred Skin: normal color, warm/dry Neuro/Psych: alert ICD10 Worksheet Patient Problems: Problems Problem Status Onset Acute blood loss anemia Acute Status post thymectomy Acute ~04/25/16 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
[2016-04-30 05:56] LABS: HEMATOCRIT 33.9 % (40.0-51.0); HEMOGLOBIN 11.5 g/dL (13.7-17.5); MEAN CELL HEMOGLOBIN 30.6 pg (27.9-34.1); MEAN CELL HEMOGLOBIN CONCENTR. 33.9 g/dL (32.4-36.7); MEAN CELL VOLUME 90.2 fL (81.5-99.8); RED BLOOD CELL COUNT 3.76 10^6/uL (4.40-6.38); RED CELL DISTRIBUTION WIDTH 15.6 % (11.5-15.2)
[2016-04-30 06:04] LABS: ALBUMIN 3.5 g/dL (3.5-5.0); ANION GAP 16 mEq/L (8-16); CALCIUM 8.9 mg/dL (8.5-10.4); CARBON DIOXIDE 23 mEq/l (22-31); CHLORIDE 105 mEq/L (97-110); GLOMERULAR FILTRATION RATE 7; GLUCOSE 93 mg/dL (70-100); POTASSIUM 4.1 mEq/L (3.5-5.2); SODIUM 144 mEq/L (134-144)
[2016-04-30 06:08] LABS: CREATININE 7.9 mg/dL (0.7-1.3)
--- NOTE | 2016-04-30 08:40 | SOAPPROG ---
SOAP Progress Note Assessment/Plan: POD#5 radical thymectomy with LLLobectomy and goretex reconstruction of innominate vein, on cardiopulmonary bypass, via median sternotomy. SVC compression syndrome secondary to thymoma - Lung and innominate vein resection required to fully remove tumor. Post-op air leak resolved. Formal ENT evaluation prior to starting orals as vagus/recurrent laryngeal nerves manipulated during resection. NGT placed and TFs running. Acute on chronic anemia - Expected surgical blood losses compounded by postCPB coagulopathy. Stable s/p transfusion 8u PRBC, 6u FFP, 2u Plt, 2u cryo. No evidence active bleeding. Platelet count remains suppressed, care with re- anticoagulation. HIT negative. ESRD on HD - Access via LUE AVF. Balloon occlusion of fistula to reduce venous flow and facilitate hemostatic control compl by thrombosis of graft. Gen surg attempt to repair complicated by large blood volume loss without recurrent thrombosis. Temp cath per rt CFV. Plan for future fistula. Fluid and metabolic management per nephrology. Remote CVA with residual left hemiparesis - Stable. Anticipate inpt rehab for postop reconditioning. Subjective: c/o pain Objective: Vital Signs Temp Pulse Resp BP Pulse Ox 36.7 C 110 H 21 H 127/98 H 98 04/30/16 08:00 04/30/16 08:00 04/30/16 08:00 04/30/16 08:00 04/30/16 08:00 Laboratory Results 04/30/16 05:39 04/30/16 05:39 04/29/16 04/30/16 05/01/16 05:59 05:59 05:59 Intake Total 928 451 Output Total 2820 840 Balance -1892 -389 PT 19.2 SEC (12.0-15.0) H 04/27/16 15:00 INR 1.61 (0.83-1.16) H 04/27/16 15:00 Physical Exam - Physical Exam General Appearance: alert, no apparent distress EENT: No scleral icterus (R), No scleral icterus (L) Neck: normal inspection Respiratory: No respiratory distress Cardiac/Chest: tachycardia Abdomen: non-tender, soft, No distended Skin: normal color, warm/dry Extremities: No pedal edema Neuro/Psych: alert, motor weakness (L, residual from prior CVA), No normal mood/ affect ICD10 Worksheet Patient Problems: Problems Problem Status Onset Acute blood loss anemia Acute Status post thymectomy Acute ~04/25/16 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
--- NOTE | 2016-04-30 09:35 | SOAPPROG ---
SO[place] Progress Note Assessment/Plan: Assessment/Plan: ESRD: on HD MWF. - Will plan on next HD on Sunday per routine. Access: thrombectomy done , complicated with large blood loss, does not currently appear usable. Pt with temporary catheter, will continue to monitor his access for now, appreciate involvement of surgery. Will discuss tomorrow regarding plan for future access. KENNEY: Phos up to 4.7 now, will restart Sevelamer tomorrow. Subjective: Pt extubated yesterday and did well. No acute events overnight. Pt reports feeling sore all over, mainly his back, neck, chest and arm. Objective: Vital Signs Temp Pulse Resp BP Pulse Ox 36.7 C 110 H 21 H 127/98 H 98 04/30/16 08:00 04/30/16 08:00 04/30/16 08:00 04/30/16 08:00 04/30/16 08:00 Laboratory Results 04/30/16 05:39 04/30/16 05:39 04/29/16 04/30/16 05/01/16 05:59 05:59 05:59 Intake Total 928 451 Output Total 2820 840 Balance -1892 -389 PT 19.2 SEC (12.0-15.0) H 04/27/16 15:00 INR 1.61 (0.83-1.16) H 04/27/16 15:00 General: alert and oriented, no acute distress Eyes; EOMI, PERRL OP: Clear CV: RRR Resp: CTA bilat, nonlabored respirations on NC Abd; Soft, NT Ext: no edema BLE, +1 edema LUE Neuro :CN II-XII grossly intact, no asterixis Access: R femoral temp cath, LUE AVG with no thrill or bruit ICD10 Worksheet Patient Problems: Problems Problem Status Onset Acute blood loss anemia Acute Status post thymectomy Acute ~04/25/16 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
[2016-04-30] MEDS ORDERED: KETOROLAC 30 MG/1 ML SDV IVP PRN (10:08)
[2016-04-30] MEDS: LANSOPRAZOLE SUSP 30MG/10ML UDSYR (Adult) TUBE SCH (11:17)
[2016-04-30] MEDS: HYDROCODONE/APAP 5/325 TAB TUBE PRN (11:58)
[2016-04-30] MEDS ORDERED: KETOROLAC 30 MG/1 ML SDV IVP ONE (12:00)
[2016-04-30] MEDS ORDERED: OXYMETAZOLINE 30 ML NASAL SPRAY EACHNARE PRN (18:42)
[2016-04-30] MEDS ORDERED: LIDOCAINE HCL 4% TOPICAL SOLN 50ML TP ONE (18:45)
--- NOTE | 2016-04-30 21:53 | GCON ---
[f rep st] CONSULTATION DATE OF CONSULTATION: 04/30/2016 REASON FOR CONSULTATION: Hoarseness after mediastinal surgery. 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 Postoperatively the patient reports he has been hoarse. He has never had a problem with hoarseness before. He said he was able to tolerate swallow ing okay but the patient is currently n.p.o. He does not have a history of vocal cord surgery or tr ouble swallowing. Patient denies prior neck surgeries. PHYSICAL EXAM: Patient has obvious breathiness of his voice. He is a KO feed in the right nasal. No incisions of the neck or swelling of the neck or obvious trauma to the neck. PROCEDURE: Fiberoptic indirect laryngoscopy after topical lidocaine and Afrin in the left nasal cav ity. The laryngoscope was inserted and normal nasal cavity, nasopharynx with 1+ adenoids, oropharyn x with normal base of tongue. Oropharynx epiglottis appeared normal. The laryngeal exam was consis tent with a paramedian to possibly cadaveric left vocal cord paralysis without any movement. The ri ght vocal cord is moving normally. There is a persistent transglottic gap throughout the exam. 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 1. Modified barium swallow to assess if the patient is safe for p.o. 2. Speech therapy consultation. 3. Briefly discussed with the patient the option for a medialization procedure to improve vocal cor d and possible swallowing depending on what the modified barium swallow shows. /[id number]/[id number]
[2016-05-01 06:20] LABS: ALBUMIN 3.1 g/dL (3.5-5.0); ANION GAP 13 mEq/L (8-16); CALCIUM 9.1 mg/dL (8.5-10.4); CARBON DIOXIDE 23 mEq/l (22-31); CHLORIDE 102 mEq/L (97-110); GLOMERULAR FILTRATION RATE 6; GLUCOSE 101 mg/dL (70-100); POTASSIUM 3.9 mEq/L (3.5-5.2); SODIUM 138 mEq/L (134-144)
[2016-05-01 06:24] LABS: CREATININE 9.1 mg/dL (0.7-1.3)
[2016-05-01] MEDS ORDERED: ALBUMIN 25% 50 ML IV ONE (06:30)
[2016-05-01] MEDS: fentaNYL 100 MCG/2 ML INJ IVP PRN ×4 (07:55→23:55)
--- NOTE | 2016-05-01 08:17 | SOAPPROG ---
SOAP Progress Note Assessment/Plan: Assessment: POD#6 radical thymectomy with LLLobectomy and goretex reconstruction of innominate vein, on cardiopulmonary bypass, via median sternotomy. 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 Extubation delayed until 04/29 for return to OR to attempt fistula salvage. Small air leak controlled by suction. Beginning to mobilize phlegm. Mucus plugging expected. Therapeutic bronch prn. 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 TFs per DHT pending further determination swallow. Acute on chronic anemia - Expected surgical blood losses compounded by postCPB coagulopathy and AVF exploration. Additional PRBC prn BP support on dialysis. No evidence active bleeding. HIT Ab neg. ESRD on HD - Access via LUE AVF. Balloon occlusion of fistula to reduce venous flow and facilitate hemostatic control compl by thrombosis of graft. Gen surg unable to re-establish flow as more centrally obstructed. Temp cath per rt CFV for now. Fluid management per nephrology. Remote CVA with residual left hemiparesis - Stable. Anticipate inpt rehab for postop reconditioning. Plan: VFSS followed by bronchoscopy. IR consult for IJ dialysis cath. Mobilize. 05/01/16 08:16 Subjective: Doing ok. Thinks voice is getting stronger. Thirsty. "Torture" not to be able to eat/drink. Junky cough. Does not feel SOB. Objective: Vital Signs Temp Pulse Resp BP Pulse Ox 36.6 C 112 H 15 117/91 H 99 05/01/16 07:55 05/01/16 07:55 05/01/16 07:55 05/01/16 07:55 05/01/16 07:55 Laboratory Results 04/30/16 05:39 05/01/16 05:48 04/30/16 05/01/16 05/02/16 05:59 05:59 05:59 Intake Total 451 948 Output Total 840 535 Balance -389 413 PT 19.2 SEC (12.0-15.0) H 04/27/16 15:00 INR 1.61 (0.83-1.16) H 04/27/16 15:00 Tachycardic on HD. SBP ok. Suppl O2 req stable at 3 lpm. Chest tubes to pleurovac for intermittent air leak. CXR-> Tubes in good position, no PTX, new opacification of entire left lung. Neg 10kg by UF. 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
[2016-05-01] MEDS ORDERED: ALTEPLASE 2 MG VIAL MISC ONE (09:00)
--- NOTE | 2016-05-01 09:32 | SOAPPROG ---
[facility] Progress Note Assessment/Plan: Assessment/Plan: ESRD: on HD MWF. - HD being done today. Access: thrombectomy done , complicated with large blood loss, does not currently appear usable. Pt with temporary catheter, will continue to monitor his access for now, appreciate involvement of surgery. Will continue to discuss plan for future access, including access plans until new fistula matures. KENNEY: Phos up to 5.5 now, will restart Sevelamer today. Subjective: No acute events overnight. Pt states he is feeling a bit better, still sore. Objective: Vital Signs Temp Pulse Resp BP Pulse Ox 36.6 C 112 H 15 117/91 H 99 05/01/16 07:55 05/01/16 07:55 05/01/16 07:55 05/01/16 07:55 05/01/16 07:55 Laboratory Results 04/30/16 05:39 05/01/16 05:48 04/30/16 05/01/16 05/02/16 05:59 05:59 05:59 Intake Total 451 948 Output Total 840 535 Balance -389 413 PT 19.2 SEC (12.0-15.0) H 04/27/16 15:00 INR 1.61 (0.83-1.16) H 04/27/16 15:00 General: alert and oriented, no acute distress Eyes; EOMI, PERRL Head: no swelling CV: RRR Resp: nonlabored respirations on NC Abd: Soft, NT Ext: no edema BLE, +1 edema LUE Neuro: CN II-XII grossly intact, no asterixis Access: LUE AVG with no thrill or bruit, R femoral temp cath ICD10 Worksheet Patient Problems: Problems Problem Status Onset Acute blood loss anemia Acute Status post thymectomy Acute ~04/25/16 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
--- NOTE | 2016-05-01 12:24 | PDINTPN ---
[employer] Progress Note Assessment/Plan: Assessment: 45 M with hx thymoma developed SVC syndrome and required extensive resection including medial LLL segmentectomy, vagotomy with resultant paralyzed left VC, innominate vein resection/graft. Course complicated by thrombosis of previous left AV fistula- attempt at thrombectomy complicated by bleeding so aborted. Extubated without difficulty and chest tubes remain in place and patent. # S/p surgery as described- hemodynamically stable at this point off pressors. Still with significant edema of arm, but much improved per staff. # Pleural effusion versus mucous plug- CXR today shows near complete white-out of left lung. Plan Bronch at 1500. TF held for bronch # Swallow? esophagram postponed /2 scheduling in xray. Will performn in AM #ESRD 2/ PCKD- HD catheter in groin currently, but will likely need revision. Discussed with Dr. Skinner and will consider lytics at a later date. 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 Voice OK for now - swallow pending as above. Subjective: No complaints Objective: Vital Signs Temp Pulse Resp BP Pulse Ox 36.6 C 121 H 20 109/81 H 97 05/01/16 07:55 05/01/16 09:53 05/01/16 09:53 05/01/16 09:53 05/01/16 09:53 Laboratory Results 04/30/16 05:39 05/01/16 05:48 04/30/16 05/01/16 05/02/16 05:59 05:59 05:59 Intake Total 451 948 Output Total 840 535 Balance -389 413 PT 19.2 SEC (12.0-15.0) H 04/27/16 15:00 INR 1.61 (0.83-1.16) H 04/27/16 15:00 Physical Exam - Physical Exam General Appearance: alert, no apparent distress EENT: PERRL/EOMI, No scleral icterus (R), No scleral icterus (L) Neck: non-tender, full range of motion, supple Respiratory: chest non-tender, normal breath sounds, No respiratory distress, No accessory muscle use Cardiac/Chest: normal peripheral pulses, regular rate, rhythm, No edema Abdomen: non-tender, soft, No distended, No guarding Skin: normal color, warm/dry, No cyanosis Lymphatic: no adenopathy Extremities: normal range of motion, No pedal edema Neuro/Psych: alert, normal mood/affect, oriented x 3 ICD10 Worksheet Patient Problems: Problems Problem Status Onset Acute blood loss anemia Acute Status post thymectomy Acute ~04/25/16 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
[2016-05-01] MEDS: LANSOPRAZOLE SUSP 30MG/10ML UDSYR (Adult) TUBE SCH (14:00)
[2016-05-01] MEDS: SEVELAMER HCL 800 MG TAB PO SCH ×2 (14:01→19:11)
--- NOTE | 2016-05-01 14:10 | SOAPPROG ---
SORAYA Progress Note Assessment/Plan: Assessment: 45 yo man w ESRD on HD who p/w mild/mod SVC syndrome due to large thymoma and vascular anomalies 1. Thymoma - Resected. Complex resection. 8cm max dimension. Positive margins. Not planing on any additional therapy at the moment. 2. SVC syndrome - SVC compromised by high aortic arch compressing SVC on R ( anotomin abnormality) in addition to thymic mass compression on left No indication for endovascular stent. He is not sure if his swelling is better today or not. 3. ESRD - HD 3x/week; due to PCKD 4. Anemia - due to ESRD 5. Other med issues - Multiple and complex. Tachycardia. Opacification of R lung. He is still critically ill. Plan: Will follow intermittently. Subjective: Not feeling well. Objective: Vital Signs Temp Pulse Resp BP Pulse Ox 36.6 C 117 H 19 112/84 H 95 05/01/16 07:55 05/01/16 14:00 05/01/16 14:00 05/01/16 14:00 05/01/16 14:00 Laboratory Results 04/30/16 05:39 05/01/16 05:48 04/29/16 04/30/16 05/01/16 23:59 23:59 23:59 Intake Total 759 654 548 Output Total 639 531 285 Balance 120 123 263 PT 19.2 SEC (12.0-15.0) H 04/27/16 15:00 INR 1.61 (0.83-1.16) H 04/27/16 15:00 Physical Exam - Physical Exam General Appearance: severe distress Respiratory: decreased breath sounds (Right) Cardiac/Chest: tachycardia ICD10 Worksheet Patient Problems: Problems Problem Status Onset Acute blood loss anemia Acute Status post thymectomy Acute ~04/25/16 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
[2016-05-01] MEDS ORDERED: LIDOCAINE 1% 30 ML SDV ONE ×2 (14:45→15:21)
[2016-05-01] MEDS ORDERED: LIDOCAINE 2% JELLY 5 ML TUBE ONE (14:46)
[2016-05-01] MEDS ORDERED: MIDAZOLAM 2 MG/2 ML VIAL ONE ×2 (15:08→15:20)
[2016-05-01] MEDS ORDERED: LIDOCAINE 1% 30 ML SDV MISC ONE (15:44)
[2016-05-01] MEDS ORDERED: LIDOCAINE 2% JELLY 5 ML TUBE TP ONE (15:44)
--- NOTE | 2016-05-01 16:12 | SOAPPROG ---
SOAP Progress Note Assessment/Plan: Assessment: Based on last CTA: occluded innominate vein, occluded RT IJ at its base, LT IJ draining into subclavian vein. Post mediastinal mass removal; Post surgical thrombectomy of central clot and of LUE fistula. Unknown status of central veins at this time. ? feasibility of fistulogram? ? TPA lysis candidate at this time if needed? ? need for central stent placement. Plan: Patient got sedation for broncoscopy today prior to IR obtaining consent for procedure. Patient is on for tomorrow for the followin. bilateral UE and jugular venography 2. possible LUE fistulogram if feasible (based on findings) 3. possible central venous stent placement 4. possible lysis. d/w Dr. Skinner, who deemed the patient safe for catheter directed low dose TPA if needed at this time. D/W Drs. Bhat and Brody. 05/01/16 15:55 Objective: Vital Signs Temp Pulse Resp BP Pulse Ox 36.6 C 118 H 17 103/73 94 05/01/16 07:55 05/01/16 15:28 05/01/16 15:28 05/01/16 15:28 05/01/16 15:28 Laboratory Results 04/30/16 05:39 05/01/16 05:48 04/30/16 05/01/16 05/02/16 05:59 05:59 05:59 Intake Total 451 948 Output Total 840 535 Balance -389 413 PT 19.2 SEC (12.0-15.0) H 04/27/16 15:00 INR 1.61 (0.83-1.16) H 04/27/16 15:00 Patient's previous imaging reviewed. 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
--- NOTE | 2016-05-01 16:56 | GPN ---
[f rep st] PROCEDURE NOTE DATE OF PROCEDURE: 05/01/2016 Consent was obtained from the patient prior to the administration of anesthesia. The risks and bene fits of the procedure and conscious sedation were explained in detail, and the patient agreed to pro ceed. PROCEDURE: Bronchial washings. ANESTHESIA: Conscious sedation was achieved using a total of 3 mg of Versed and 100 mcg of IV fenta nyl. The patient tolerated these well without complications. DESCRIPTION OF PROCEDURE: After the patient's oropharynx was sprayed with 1% lidocaine and a bite b lock in place, the bronchoscope was passed to his epiglottis and vocal cords, where additional lidoc vernell was obtained. The posterior segment of the left vocal cord was retracted. The patient was not able to cooperate fully at this point, but his cords did seem to close appropriately. Advancing th e scope through the trachea, there were copious amounts of frothy white secretions in the left rogelio tem but no mucus plugs, blood clots or excess blood. These were easily removed down to the lower se gments of the left lower lobe. There was some minor oozing following the bronchoscopy, but nothing occluding. There were also thin frothy secretions in the right lower lobe, which were likely spillo ralf from the left side. Overall, the patient tolerated the procedure well and specimens were sent f or cultures. /[id number]/MODL
[2016-05-01] MEDS ORDERED: fentaNYL 100 MCG/2 ML INJ IVP ONE (17:30)
[2016-05-01] MEDS ORDERED: MIDAZOLAM 2 MG/2 ML VIAL IVP ONE (17:30)
[2016-05-02] MEDS: fentaNYL 100 MCG/2 ML INJ IVP PRN ×9 (04:14→23:24)
[2016-05-02] MEDS: LANSOPRAZOLE SUSP 30MG/10ML UDSYR (Adult) TUBE SCH (09:13)
[2016-05-02] MEDS: SEVELAMER HCL 800 MG TAB PO SCH (09:18)
--- NOTE | 2016-05-02 09:21 | SOAPPROG ---
SOAP Progress Note Assessment/Plan: Assessment: POD#7 radical thymectomy with LLLobectomy and goretex reconstruction of innominate vein, on cardiopulmonary bypass, via median sternotomy. 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 Extubation delayed until 04/29 for return to OR to attempt fistula salvage. Small air leak controlled by suction. Beginning to mobilize phlegm. Mucus plugging expected. Therapeutic bronch prn. 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 TFs per DHT pending further determination swallow. Acute on chronic anemia - Expected surgical blood losses compounded by postCPB coagulopathy and AVF exploration. Additional PRBC prn BP support on dialysis. No evidence active bleeding. HIT Ab neg. ESRD on HD - Access via LUE AVF. Balloon occlusion of fistula to reduce venous flow and facilitate hemostatic control compl by thrombosis of graft. Gen surg unable to re-establish flow as more centrally obstructed. Temp cath per rt CFV for now. IR to assess for more prox access site. Fluid management per nephrology. Remote CVA with residual left hemiparesis - Stable. Anticipate inpt rehab for postop reconditioning. Plan: VFSS. TFs vs orals pending result. Tunneled dialysis cath per IR. Mobilize. Rt pl tube and ant mediastinal tube clamped. Plan removal this afternoon if f/u CXR ok. Keep left pl tube to pleurovac. 05/01/16 08:16 Subjective: Feels less hoarse and swollen. Hopeful for orals soon. Objective: Vital Signs Temp Pulse Resp BP Pulse Ox 36.9 C 110 H 19 116/85 H 98 05/01/16 19:25 05/02/16 06:00 05/02/16 06:00 05/02/16 06:00 05/02/16 06:00 Microbiology 05/01/16 15:52 Gram Stain - Final Lung - Bronchial Washings Laboratory Results 04/30/16 05:39 05/01/16 05:48 05/01/16 05/02/16 05/03/16 05:59 05:59 05:59 Intake Total 948 Output Total 535 280 Balance 413 -280 PT 19.2 SEC (12.0-15.0) H 04/27/16 15:00 INR 1.61 (0.83-1.16) H 04/27/16 15:00 Bronch/BAL yest w some improvement in left lung aeration. ? tiny apical PTX. Remains ST w adeq BP, likely reactive to fluid status. Afeb, WBC ok, suppl O2 req stable. TFs on hold pending scheduled procedures. 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
[2016-05-02 12:54] LABS: INR 1.2 (0.83-1.16); PROTIME(PATIENT) 15.2 SEC (12.0-15.0)
[2016-05-02 12:55] LABS: APTT 28.1 SEC (23.0-38.0)
[2016-05-02] MEDS ORDERED: fentaNYL 250 MCG/5 ML INJ ONE (14:29)
--- NOTE | 2016-05-02 15:11 | PDINTPN ---
[employer] Progress Note Assessment/Plan: Assessment: 45 M with hx thymoma developed SVC syndrome and required extensive resection including medial LLL segmentectomy, vagotomy with resultant paralyzed left VC, innominate vein resection/graft. Course complicated by thrombosis of previous left AV fistula- attempt at thrombectomy complicated by bleeding so aborted. Extubated without difficulty and chest tubes remain in place and patent. # S/p surgery as described- hemodynamically stable. Still with significant edema of arm, but much improved from 05/01 to 05/02 # Pleural effusion- s/p BAL 05/01 with copious frothy secretions without plugs. CXR improved today # Swallow? esophagram postponed 04/13 scheduling in xray. Will perform in AM #ESRD 04/13 PCKD- HD catheter in groin currently, but will likely need revision. 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 Voice improved to me- swallow pending as above. 05/02/16 15:09 Subjective: Continues to improve. Still with incisional chest pain, no change in arm edema. no sob Objective: Vital Signs Temp Pulse Resp BP Pulse Ox 36.7 C 113 H 19 114/87 H 91 L 05/02/16 08:00 05/02/16 12:00 05/02/16 12:00 05/02/16 12:00 05/02/16 12:00 Microbiology 05/01/16 15:52 Gram Stain - Final Lung - Bronchial Washings Laboratory Results 04/30/16 05:39 05/01/16 05:48 05/01/16 05/02/16 05/03/16 05:59 05:59 05:59 Intake Total 948 Output Total 535 280 Balance 413 -280 PT 15.2 SEC (12.0-15.0) H 05/02/16 12:40 INR 1.20 (0.83-1.16) H 05/02/16 12:40 Physical Exam - Physical Exam General Appearance: WD/WN, alert, no apparent distress EENT: PERRL/EOMI Neck: full range of motion, supple Respiratory: lungs clear, normal breath sounds, No respiratory distress Cardiac/Chest: normal peripheral pulses, regular rate, rhythm, edema (of LUE) Abdomen: normal bowel sounds, non-tender, soft Skin: normal color, warm/dry, No rash Lymphatic: no adenopathy Extremities: non-tender, No pedal edema Neuro/Psych: alert, normal mood/affect, oriented x 3 ICD10 Worksheet Patient Problems: Problems Problem Status Onset Acute blood loss anemia Acute Status post thymectomy Acute ~04/25/16 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
[2016-05-02] MEDS ORDERED: D5W 1/2 NS 1,000 ML IV SCH (15:30)
[2016-05-02] MEDS ORDERED: HEPARIN 10,000 UNIT/10 ML MDV ONE (15:31)
[2016-05-02] MEDS ORDERED: NITROGLYCERIN/D5W 50 MG/250 ML BOTTLE IV ONE (15:44)
[2016-05-02] MEDS ORDERED: IOPAMIDOL (ISOVUE-300) 100 ML BTL IV ONE (15:45)
[2016-05-02] MEDS ORDERED: NITROGLYCERIN 2% 1 GM PACKET ONE ×2 (15:57→16:16)
[2016-05-02] MEDS ORDERED: HEPARIN 50,000 UNIT/10 ML VIAL ONE (16:46)
--- NOTE | 2016-05-02 18:41 | SOAPPROG ---
SOAP Progress Note Assessment/Plan: Assessment: ultrasound and venogram show open left avf but no mediastinal outflow Plan: attempt to use avf rather new catheter or avf placement 05/02/16 18:39 Objective: Vital Signs Temp Pulse Resp BP Pulse Ox 36.7 C 119 H 12 109/62 95 05/02/16 08:00 05/02/16 18:00 05/02/16 18:00 05/02/16 18:00 05/02/16 18:00 Microbiology 05/01/16 15:52 Gram Stain - Final Lung - Bronchial Washings Laboratory Results 04/30/16 05:39 05/01/16 05:48 05/01/16 05/02/16 05/03/16 05:59 05:59 05:59 Intake Total 948 Output Total 535 280 80 Balance 413 -280 -80 PT 15.2 SEC (12.0-15.0) H 05/02/16 12:40 INR 1.20 (0.83-1.16) H 05/02/16 12:40 ICD10 Worksheet Patient Problems: Problems Problem Status Onset Acute blood loss anemia Acute Status post thymectomy Acute ~04/25/16 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
[2016-05-02] MEDS ORDERED: NS 100 ML IV PRN (18:55)
[2016-05-02] MEDS ORDERED: LIDOCAINE 1% 30 ML SDV ONE (22:07)
[2016-05-03] MEDS: fentaNYL 100 MCG/2 ML INJ IVP PRN ×8 (02:09→22:12)
[2016-05-03 04:49] LABS: HEMATOCRIT 30.5 % (40.0-51.0); MEAN CELL HEMOGLOBIN CONCENTR. 32.8 g/dL (32.4-36.7); MEAN CELL VOLUME 91.6 fL (81.5-99.8); RED BLOOD CELL COUNT 3.33 10^6/uL (4.40-6.38); RED CELL DISTRIBUTION WIDTH 14.6 % (11.5-15.2)
[2016-05-03 05:11] LABS: ANION GAP 17 mEq/L (8-16); CALCIUM 8.8 mg/dL (8.5-10.4); CARBON DIOXIDE 19 mEq/l (22-31); CHLORIDE 99 mEq/L (97-110); GLOMERULAR FILTRATION RATE 6; GLUCOSE 90 mg/dL (70-100); POTASSIUM 5.6 mEq/L (3.5-5.2); SODIUM 135 mEq/L (134-144)
[2016-05-03 05:15] LABS: CREATININE 9.5 mg/dL (0.7-1.3)
--- NOTE | 2016-05-03 07:46 | SOAPPROG ---
SOAP Progress Note Assessment/Plan: Assessment: POD#8 radical thymectomy with LLLobectomy and goretex reconstruction of innominate vein, on cardiopulmonary bypass, via median sternotomy. 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 Extubation delayed until 04/29 for return to OR to attempt AV fistula salvage. Small air leak controlled by suction. Beginning to mobilize phlegm. Mucus plugging expected. Therapeutic bronch prn. 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 TFs per DHT pending further determination swallow. Acute on chronic anemia - Expected surgical blood losses compounded by postCPB coagulopathy and AVF exploration. Additional PRBC prn BP support on dialysis. No evidence active bleeding. HIT Ab neg. ESRD on HD - Access via LUE AVF. Balloon occlusion of fistula to reduce venous flow and facilitate hemostatic control compl by thrombosis of graft. Gen surg unable to definitively re-establish flow as more centrally obstructed. Temp cath per rt CFV until IR able to access more prox site. Shown by venogram to have patent AVF to innominate junction and future use feasible. RIJ cath for now. Fluid management per nephrology. Remote CVA with residual left hemiparesis - Stable. Anticipate inpt rehab for postop reconditioning. Plan: VFSS. TFs vs orals pending result. Increase activity. Remove chest tubes. Tx to PCU after dialysis. 05/03/16 07:37 Subjective: Cold on dialysis. Hungry, wants to eat. Objective: Vital Signs Temp Pulse Resp BP Pulse Ox 36.4 C 112 H 13 117/85 H 95 05/03/16 04:00 05/03/16 06:00 05/03/16 06:00 05/03/16 06:00 05/03/16 06:00 Microbiology 05/01/16 15:52 Gram Stain - Final Lung - Bronchial Washings Laboratory Results 05/03/16 04:35 05/03/16 04:35 05/02/16 05/03/16 05/04/16 05:59 05:59 05:59 Output Total 280 250 Balance -280 -250 PT 15.2 SEC (12.0-15.0) H 05/02/16 12:40 INR 1.20 (0.83-1.16) H 05/02/16 12:40 Venogram and temp RIJ dialysis cath placement yest. Esophagram postponed d/t lengthy IR time. RFV cath inadvertently removed by pt overnoc. CXR-> No PTX, stable aeration left lung. Physical Exam - Physical Exam General Appearance: alert (when engaged), no apparent distress Respiratory: other (coarse left sided BS; Rt blakes clamped at skin, left vidya appears patent, serosang drainage, no AL) Cardiac/Chest: regular rate, rhythm, tachycardia, other (Sternum grossly stable. 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
[2016-05-03] MEDS ORDERED: ALBUMIN 25% 100 ML IV ONE (09:00)
[2016-05-03] MEDS ORDERED: MUPIROCIN 2% 22 GM OINT TP SCH (09:00)
--- NOTE | 2016-05-03 09:07 | SOAPPROG ---
SORAYA Progress Note Assessment/Plan: Assessment/Plan: 45 Y M ESRD on HD, thymoma s/p radical resection, s/p thrombectomy of AVF. Seen and examined with Dr. Bhat. Ok to attempt access of AVF for HD. 05/03/16 09:05 Subjective: on HD. awake. Objective: Vital Signs Temp Pulse Resp BP Pulse Ox 36.4 C 112 H 13 117/85 H 95 05/03/16 04:00 05/03/16 06:00 05/03/16 06:00 05/03/16 06:00 05/03/16 06:00 Microbiology 05/01/16 15:52 Gram Stain - Final Lung - Bronchial Washings Laboratory Results 05/03/16 04:35 05/03/16 04:35 05/02/16 05/03/16 05/04/16 05:59 05:59 05:59 Output Total 280 250 Balance -280 -250 PT 15.2 SEC (12.0-15.0) H 05/02/16 12:40 INR 1.20 (0.83-1.16) H 05/02/16 12:40 somnolent but arousable. 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
[2016-05-03] MEDS: LANSOPRAZOLE SUSP 30MG/10ML UDSYR (Adult) TUBE SCH (09:15)
--- NOTE | 2016-05-03 15:52 | PDINTPN ---
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 Course complicated by thrombosis of previous left AV fistula- attempt at thrombectomy complicated by bleeding so aborted. Extubated without difficulty and chest tubes remain in place and patent. # S/p surgery as described- hemodynamically stable. Still with significant edema of arm. Taken to IR and found to have intact fistula, but substantial collateral vessels in bilateral upper chest. RIJ temp HD cath placed and geting HD through it this am. He self dc'd his right fem HD catheter (no major bleeding ). After discussion with IR, his options include trial of existing fistula on left, tunnelled right SC to SVC with SVC stent since SVC is stenosed; tunnelled right fem line. Will attempt fistula cannulation with US guidance (IR willing to be present for this) at next HD since this is best option. # Loculated left PTX- will attempt to place pigtail catheter in this today- it is loculated and he is stable at the moment. There is also a tiny apical PTX on the right that I dont feel needs intervention at this time. # Pleural effusion- s/p BAL 05/01 with copious frothy secretions without plugs. # Swallow? esophagram postponed 2/2 scheduling in xray. 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 Voice improved to me- swallow pending as above. Subjective: chest tubes dc'd this am. c/o ongoing anterior incisional pain. no sob Objective: Vital Signs Temp Pulse Resp BP Pulse Ox 36.4 C 114 H 17 89/58 L 93 05/03/16 04:00 05/03/16 12:00 05/03/16 12:00 05/03/16 12:00 05/03/16 12:00 Microbiology 05/01/16 15:52 Gram Stain - Final Lung - Bronchial Washings Bronchial Washings Culture - Final Laboratory Results 05/03/16 04:35 05/03/16 04:35 05/02/16 05/03/16 05/04/16 05:59 05:59 05:59 Output Total 280 250 Balance -280 -250 PT 15.2 SEC (12.0-15.0) H 05/02/16 12:40 INR 1.20 (0.83-1.16) H 05/02/16 12:40 Physical Exam - Physical Exam General Appearance: alert, no apparent distress EENT: PERRL/EOMI Neck: full range of motion, supple Respiratory: lungs clear, decreased breath sounds, No respiratory distress, No rales, No rhonchi Cardiac/Chest: normal peripheral pulses, regular rate, rhythm Abdomen: non-tender, soft, No organomegaly, No distended Skin: normal color, warm/dry, No rash Lymphatic: no adenopathy Extremities: non-tender, other (significant edema of LUE- no change cf yesterday ) Neuro/Psych: alert, oriented x 3, other (weak voice, but improving) ICD10 Worksheet Patient Problems: Problems Problem Status Onset Acute blood loss anemia Acute Status post thymectomy Acute ~04/25/16 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
[2016-05-03] MEDS ORDERED: HEPARIN 50,000 UNIT/10 ML VIAL ONE (16:17)
--- NOTE | 2016-05-03 17:34 | POSTOPPROG ---
Post Op Note Date of Operation: 05/03/16 Surgeon: Jeet Campbell Anesthesia: Local (Specify) (and IV fentanyl. No sedative given because of hypotension and small airway.) Pre-op Diagnosis: Bilateral pneumothoraces Post-op Diagnosis: Same Indication: Chest pain, hypotension, hypoxia Procedure: Bilateral chest tubes with CT guidance Findings: Left hemopneumothorax, right pneumothorax Inf/Abcess present in the surg proc area at time of surgery?: No EBL: Minimal (30 ml) Complications: 0 Drains: Other (Bilateral 16-F ThalQuik tubes)
--- NOTE | 2016-05-03 17:58 | SOAPPROG ---
SOAP Progress Note Assessment/Plan: Assessment: 1. esrd: next hd tentatively Sunday. Would try to cannulate LUE avg, which appears to be patent both on exam and venography yesterday. 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 Previous issue in LUE was in brachial vein, which was stented. This appears to be widely patent based on report of yesterday's venogram. His outpt labs have been ok despite central stenosis, therefore he may be able to dialyze via avg for a while if it can be cannulated. 2. thymoma: s/p resection, pt has previously refused chemo. 3. anemia: transfused Plan: 04/22/16 17:39 04/23/16 15:34 05/03/16 17:52 Subjective: Uneventful hd earlier today via RIJ temp cath. No uf due to relative hypotension. Now s/p bilateral CT placement for pneumo- and hemothorax. Objective: Vital Signs Temp Pulse Resp BP Pulse Ox 36.4 C 114 H 17 89/58 L 93 05/03/16 04:00 05/03/16 12:00 05/03/16 12:00 05/03/16 12:00 05/03/16 12:00 Microbiology 05/01/16 15:52 Gram Stain - Final Lung - Bronchial Washings Bronchial Washings Culture - Final Laboratory Results 05/03/16 04:35 05/03/16 04:35 05/02/16 05/03/16 05/04/16 05:59 05:59 05:59 Output Total 280 250 Balance -280 -250 PT 15.2 SEC (12.0-15.0) H 05/02/16 12:40 INR 1.20 (0.83-1.16) H 05/02/16 12:40 Physical Exam - Physical Exam General Appearance: mild distress Extremities: pedal edema (none), other (+bruit over LUE avg) ICD10 Worksheet Patient Problems: Problems Problem Status Onset Acute blood loss anemia Acute Status post thymectomy Acute ~04/25/16 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
[2016-05-04] MEDS: fentaNYL 100 MCG/2 ML INJ IVP PRN ×4 (00:05→08:10)
[2016-05-04 05:34] LABS: HEMATOCRIT 24.6 % (40.0-51.0); MEAN CELL HEMOGLOBIN 30.5 pg (27.9-34.1); MEAN CELL HEMOGLOBIN CONCENTR. 32.5 g/dL (32.4-36.7); MEAN CELL VOLUME 93.9 fL (81.5-99.8); RED BLOOD CELL COUNT 2.62 10^6/uL (4.40-6.38); RED CELL DISTRIBUTION WIDTH 14.5 % (11.5-15.2)
[2016-05-04 05:50] LABS: ALBUMIN 3.3 g/dL (3.5-5.0); ANION GAP 15 mEq/L (8-16); CALCIUM 8.6 mg/dL (8.5-10.4); CARBON DIOXIDE 22 mEq/l (22-31); CHLORIDE 101 mEq/L (97-110); CREATININE 6.5 mg/dL (0.7-1.3); GLOMERULAR FILTRATION RATE 9; GLUCOSE 86 mg/dL (70-100); MAGNESIUM 2.4 mg/dL (1.6-2.3); POTASSIUM 4.2 mEq/L (3.5-5.2); SODIUM 138 mEq/L (134-144)
--- NOTE | 2016-05-04 07:25 | SOAPPROG ---
SOAP Progress Note Assessment/Plan: Assessment: POD#9 radical thymectomy with LLLobectomy and goretex reconstruction of innominate vein, on cardiopulmonary bypass, via median sternotomy. D#2 RIJ temp dialysis cath D#1 Bilat thal-quik chest tubes SVC compression syndrome by enlarging thymic mass - Partial left lower lobectomy , innominate vein resection, and vagus/recurrent laryngeal nerve skeletonization required to fully remove tumor. 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 Extubation delayed until 04/29 for return to OR to attempt AV fistula salvage. Prolonged chest tubes d/t air leak. OR tubes converted to dart caths for recurrent PTX. Beginning to mobilize phlegm. Mucus plugging expected. Therapeutic bronch prn. 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 TFs per DHT pending further determinat swallow. Acute on chronic anemia - Expected surgical blood losses compounded by postCPB coagulopathy and AVF exploration. Additional PRBC prn BP support on dialysis. No evidence active bleeding. HIT Ab neg. ESRD on HD - Access via LUE AVF. Balloon occlusion of fistula to reduce venous flow and facilitate hemostatic control compl by thrombosis of graft. Gen surg unable to definitively re-establish flow as more centrally obstructed. Temp cath per rt CFV until IR able to access more prox site. Shown by venogram to have patent AVF to innominate junction and future use feasible. RIJ cath for now. Fluid management per nephrology. Remote CVA with residual left hemiparesis - Stable. Anticipate inpt rehab for postop reconditioning. Plan: VFSS. TFs vs orals pending result. Increase activity. Tx to PCU after esophagram. 05/04/16 07:24 Subjective: Feels ok. No further jabbing pains lower chest since new chest tubes. Consuming thought is food and water. Objective: Vital Signs Temp Pulse Resp BP Pulse Ox 36.6 C 107 H 16 104/78 95 05/04/16 04:00 05/04/16 06:00 05/04/16 06:00 05/04/16 06:00 05/04/16 06:00 Microbiology 04/28/16 16:15 Blood Culture - Final Blood 04/28/16 16:15 Blood Culture - Final Blood 05/01/16 15:52 Gram Stain - Final Lung - Bronchial Washings Bronchial Washings Culture - Final Laboratory Results 05/04/16 04:15 05/04/16 04:15 05/03/16 05/04/16 05/05/16 05:59 05:59 05:59 Output Total 250 358 Balance -250 -358 PT 15.2 SEC (12.0-15.0) H 05/02/16 12:40 INR 1.20 (0.83-1.16) H 05/02/16 12:40 Arash tube removal yest compl by bilat PTXs, small rt apical and larger left loculated. Good lung expansion post small caths per IR. Pleurovac no AL with vigorous cough. Swallow study not done d/t lung issues. Physical Exam - Physical Exam General Appearance: alert, no apparent distress Respiratory: lungs clear (grossly, anteriorly), other (anteroapical caths x 2 to pleurovac, serosang drainage, no AL) Cardiac/Chest: regular rate, rhythm, tachycardia, other (Sternotomy CDI, anamaria ) Abdomen: non-tender, soft Skin: warm/dry Extremities: swelling (LUE. 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
[2016-05-04] MEDS: LANSOPRAZOLE SUSP 30MG/10ML UDSYR (Adult) TUBE SCH (08:15)
--- NOTE | 2016-05-04 10:01 | SOAPPROG ---
SOAP Progress Note Assessment/Plan: Assessment/Plan: 45 Y M ESRD on HD, thymoma s/p radical resection, s/p thrombectomy of AVF. AVF c palpable thrill. Less pulsatile bruit. inc's clean. Attempt AVF access for HD tomorrow. 05/04/16 10:00 Objective: Vital Signs Temp Pulse Resp BP Pulse Ox 36.6 C 100 16 115/77 92 05/04/16 08:00 05/04/16 08:00 05/04/16 08:00 05/04/16 08:00 05/04/16 08:00 Microbiology 04/28/16 16:15 Blood Culture - Final Blood 04/28/16 16:15 Blood Culture - Final Blood 05/01/16 15:52 Gram Stain - Final Lung - Bronchial Washings Bronchial Washings Culture - Final Laboratory Results 05/04/16 04:15 05/04/16 04:15 05/03/16 05/04/16 05/05/16 05:59 05:59 05:59 Output Total 250 358 Balance -250 -358 PT 15.2 SEC (12.0-15.0) H 05/02/16 12:40 INR 1.20 (0.83-1.16) H 05/02/16 12:40 ICD10 Worksheet Patient Problems: Problems Problem Status Onset Acute blood loss anemia Acute Status post thymectomy Acute ~04/25/16 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
--- NOTE | 2016-05-04 10:36 | SOAPPROG ---
SOAP Progress Note Assessment/Plan: Assessment/Plan: ESRD: on HD MWF. - HD next on Sunday per routine. Access: thrombectomy done , complicated with large blood loss. Venogram done earlier this week shows fistula is patent, will attempt to use on HD tomorrow. Otherwise, R IJ catheter also in place. KENNEY: will restart Sevelamer today. Subjective: Pt had chest tubes placed yesterday. He is tired today. Objective: Vital Signs Temp Pulse Resp BP Pulse Ox 36.6 C 89 16 122/71 H 97 05/04/16 08:00 05/04/16 10:00 05/04/16 10:00 05/04/16 10:00 05/04/16 10:00 Microbiology 04/28/16 16:15 Blood Culture - Final Blood 04/28/16 16:15 Blood Culture - Final Blood 05/01/16 15:52 Gram Stain - Final Lung - Bronchial Washings Bronchial Washings Culture - Final Laboratory Results 05/04/16 04:15 05/04/16 04:15 05/03/16 05/04/16 05/05/16 05:59 05:59 05:59 Output Total 250 358 Balance -250 -358 PT 15.2 SEC (12.0-15.0) H 05/02/16 12:40 INR 1.20 (0.83-1.16) H 05/02/16 12:40 General: sleeping, no acute distress Eyes; EOMI, PERRL OP: Clear CV: RRR Resp: nonlabored respirations on NC, Chest tubes in place Abd: Soft, NT Ext: no edema BLE Neuro: CN II-XII grossly intact Access: LUE AVG with bruit appreciated, RIJ temp cath ICD10 Worksheet Patient Problems: Problems Problem Status Onset Acute blood loss anemia Acute Status post thymectomy Acute ~04/25/16 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
[2016-05-04] MEDS ORDERED: fentaNYL 100 MCG/2 ML INJ IVP PRN (11:04)
[2016-05-04] MEDS: RENVELA PO SCH (13:22)
[2016-05-04] MEDS ORDERED: POLYETHYLENE GLYCOL 3350 17 GM PKT PO PRN (13:23)
[2016-05-04] MEDS ORDERED: MAGNESIUM HYDROXIDE 30 ML UDCUP PO PRN (13:23)
[2016-05-04] MEDS ORDERED: ACETAMINOPHEN 325 MG TAB PO PRN (13:23)
[2016-05-04] MEDS ORDERED: SENNOSIDES/DOCUSATE SODIUM TAB PO PRN (13:23)
[2016-05-04] MEDS: SEVELAMER HCL 800 MG TAB PO SCH (13:33)
[2016-05-04] MEDS: traMADol 50 MG TAB PO PRN (14:13)
--- NOTE | 2016-05-04 14:51 | PDINTPN ---
Mixer Wet Pour Progress Note Assessment/Plan: Assessment: 45 M with hx thymoma developed SVC syndrome and required extensive resection including medial LLL segmentectomy, vagotomy with resultant paralyzed left VC, innominate vein resection/graft. Course complicated by thrombosis of previous left AV fistula- attempt at thrombectomy complicated by bleeding so aborted. Extubated without difficulty and chest tubes remain in place and patent. # S/p surgery as described- hemodynamically stable. # Loculated left PTX- bilateral chest tubes placed by IR 05/03. # Pleural effusion- s/p BAL 05/01 with copious frothy secretions without plugs. # Swallow? esophagram completed; results pending #ESRD / PCKD- After discussion with IR, his options include trial of existing fistula on left, tunnelled right SC to SVC with SVC stent since SVC is stenosed ; tunnelled right fem line. Will attempt fistula cannulation with US guidance ( IR willing to be present for this) at next HD since this is best option. 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 Voice continues to improve 05/04/16 14:48 Subjective: feels ok, wants to eat Objective: Vital Signs Temp Pulse Resp BP Pulse Ox 36.6 C 89 16 122/71 H 97 05/04/16 08:00 05/04/16 10:00 05/04/16 10:00 05/04/16 10:00 05/04/16 10:00 Microbiology 04/28/16 16:15 Blood Culture - Final Blood 04/28/16 16:15 Blood Culture - Final Blood 05/01/16 15:52 Gram Stain - Final Lung - Bronchial Washings Bronchial Washings Culture - Final Laboratory Results 05/04/16 04:15 05/04/16 04:15 05/03/16 05/04/16 05/05/16 05:59 05:59 05:59 Output Total 250 358 Balance -250 -358 PT 15.2 SEC (12.0-15.0) H 05/02/16 12:40 INR 1.20 (0.83-1.16) H 05/02/16 12:40 Physical Exam - Physical Exam General Appearance: alert, no apparent distress EENT: PERRL/EOMI Neck: full range of motion, supple Respiratory: lungs clear, normal breath sounds, No respiratory distress Cardiac/Chest: normal peripheral pulses, regular rate, rhythm, edema (of LUE) Abdomen: non-tender, soft, No distended Skin: normal color, warm/dry, No rash Lymphatic: no adenopathy Extremities: No pedal edema Neuro/Psych: alert, normal mood/affect, oriented x 3 ICD10 Worksheet Patient Problems: Problems Problem Status Onset Acute blood loss anemia Acute Status post thymectomy Acute ~04/25/16 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
--- NOTE | 2016-05-04 21:19 | GOP ---
DATE OF OPERATION: 04/27/2016 SURGEON: Jeet Bhat MD PREOPERATIVE DIAGNOSIS: Thrombosed left arm arteriovenous graft. POSTOPERATIVE DIAGNOSIS: Thrombosed left arm arteriovenous graft. PROCEDURE PERFORMED: Left AV graft revision with proximal and distal angioplasties with thrombectomy and operative venography and ultrasound vein evaluation. FINDINGS: mild distal venous stenosis but complete occlusion in the chest ESTIMATED BLOOD LOSS: 2000 cc. DESCRIPTION OF PROCEDURE: Patient taken to the operating room where he received satisfactory general endotracheal anesthesia by Dr. Levy. Placed in supine position with his left arm outstretched on an arm board. Prepped and draped in the usual sterile fashion and even up onto his chest and shoulder. The AV graft was then exposed. A transverse incision was made near its origin off the brachial artery. Dissection extended down through subcutaneous tissue and the proximal graft was encircled with a vessel loop. A second incision was made distally in the upper arm. This was made longitudinally along the course of the graft. Dissection was extended down through subcutaneous tissue and the graft was encircled with vessel loops. The patient was then systemically heparinized, and after adequate circulation time, the vessels were occluded. Incision was made in the proximal segment of the AV graft, and using Dez catheters, the vein was cleared distally of all clot. Adequate backflow was present. There appeared to be mild to moderate stricture at the previous venous anastomosis. Operative venography was then done and showed good open fistula distally with moderate stenosis at the venous anastomosis to the brachial vein. However, we could not demonstrate flow into the innominate vein in the chest although there were collaterals of flow extending up the jugular vein and back out the arm. Adequate backflow was present from the distal portion of the vein. Attention was then turned to the arterial inflow side. This was cleared with Dez catheters; however, good fresh flow could not be established. The incision into the graft was then extended down to the graft arterial anastomosis site, and a large plug was removed and suddenly had excellent inflow. The vessels were occluded and a Lempster-Garrett patch was then placed over the arterial anastomotic site using a running Hemashield 6 suture. Flow was re-established into the AV graft and appeared to be good pulsatile flow but not truly a thrill and AV fistula type flow. Attention was then applied to the distal venous anastomosis. It, too, was exposed. A longitudinal incision was made in the graft at that point, and further Dez passages cleared some more clot and established more back flow, but again on venography, flow would not go into the central innominate vein, but more collaterals were demonstrated. At that point, another Lempster-Garrett patch was placed over the distal anastomosis and again sewn in place with a running Hemashield 6 suture, and flow was re-established. Suture lines were quite hemostatic. Wounds were irrigated, sprayed with some topical thrombin. The heparin was reversed with protamine, and the wounds were closed with 3-0 Vicryl for the subcutaneous tissue and 4-0 Monocryl subcuticular stitch for the skin. The graft was quite pulsatile but not really a good thrill, but it was felt that nothing more could be done with the central vein occlusion. He tolerated procedure quite well. COMPLICATIONS: None. DISPOSITION: He was taken to the recovery room in good condition. /[id number]/MODL MTDD
[2016-05-05 04:53] LABS: HEMATOCRIT 23.6 % (40.0-51.0); HEMOGLOBIN 7.9 g/dL (13.7-17.5); MEAN CELL HEMOGLOBIN 31.5 pg (27.9-34.1); MEAN CELL HEMOGLOBIN CONCENTR. 33.5 g/dL (32.4-36.7); RED BLOOD CELL COUNT 2.51 10^6/uL (4.40-6.38); RED CELL DISTRIBUTION WIDTH 14.4 % (11.5-15.2)
[2016-05-05 05:17] LABS: ANION GAP 13 mEq/L (8-16); CALCIUM 8.5 mg/dL (8.5-10.4); CARBON DIOXIDE 23 mEq/l (22-31); CHLORIDE 98 mEq/L (97-110); GLOMERULAR FILTRATION RATE 7; GLUCOSE 107 mg/dL (70-100); POTASSIUM 3.8 mEq/L (3.5-5.2); SODIUM 134 mEq/L (134-144)
[2016-05-05] MEDS: traMADol 50 MG TAB PO PRN (05:19)
[2016-05-05 05:21] LABS: CREATININE 8.1 mg/dL (0.7-1.3)
--- NOTE | 2016-05-05 07:34 | SOAPPROG ---
SOAP Progress Note Assessment/Plan: POD#10 radical thymectomy with LLLobectomy and goretex reconstruction of innominate vein, on cardiopulmonary bypass, via median sternotomy. D#3 RIJ temp dialysis cath D#2 Bilat thal-quik chest tubes SVC compression syndrome by enlarging thymic mass - Partial left lower lobectomy , innominate vein resection, and vagus/recurrent laryngeal nerve skeletonization required to fully remove tumor. 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 Extubation delayed until 04/29 for return to OR to attempt AV fistula salvage. Prolonged chest tubes d/t air leak. OR tubes converted to dart caths for recurrent PTX. Right clamped this AM with CXR at noon and subsequent possible d/ c. Beginning to mobilize phlegm. Mucus plugging expected. Therapeutic bronch prn. 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 Passed barium swallow 05/05 and tolerating regular consistency. Acute on chronic anemia - Expected surgical blood losses compounded by postCPB coagulopathy and AVF exploration. Additional PRBC prn BP support on dialysis. No evidence active bleeding. HIT Ab neg. ESRD on HD - Access via LUE AVF. Balloon occlusion of fistula to reduce venous flow and facilitate hemostatic control compl by thrombosis of graft. Gen surg unable to definitively re-establish flow as more centrally obstructed. Temp cath per rt CFV until IR able to access more prox site. Shown by venogram to have patent AVF to innominate junction and plan for use today. Keep RIJ cath for now. Fluid management per nephrology. Remote CVA with residual left hemiparesis - Stable. Anticipate inpt rehab for postop reconditioning. 05/05/16 09:59 Subjective: c/o pain and would like something stronger than APAP. Objective: Vital Signs Temp Pulse Resp BP Pulse Ox 36.8 C 100 14 88/58 L 98 05/04/16 20:00 05/05/16 04:00 05/05/16 04:00 05/05/16 04:00 05/05/16 04:00 Laboratory Results 05/05/16 04:35 05/05/16 04:35 05/04/16 05/05/16 05/06/16 05:59 05:59 05:59 Intake Total 1100 Output Total 358 435 Balance -358 665 PT 15.2 SEC (12.0-15.0) H 05/02/16 12:40 INR 1.20 (0.83-1.16) H 05/02/16 12:40 Physical Exam - Physical Exam General Appearance: WD/WN, alert, no apparent distress EENT: No scleral icterus (R), No scleral icterus (L) Neck: normal inspection Respiratory: No respiratory distress Cardiac/Chest: regular rate, rhythm Abdomen: non-tender, soft, No distended Skin: normal color, warm/dry Extremities: No pedal edema Neuro/Psych: alert, normal mood/affect, oriented x 3, motor weakness (left) ICD10 Worksheet Patient Problems: Problems Problem Status Onset Acute blood loss anemia Acute Status post thymectomy Acute ~04/25/16 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
[2016-05-05] MEDS: RENVELA PO SCH ×3 (07:59→19:26)
[2016-05-05] MEDS: CINACALCET HCL 30 MG TAB PO SCH (09:17)
[2016-05-05] MEDS ORDERED: HEPARIN 20,000 UNIT/ML VIAL SC SCH (10:00)
[2016-05-05] MEDS: OXYCODONE/APAP 5/325 TAB PO PRN ×2 (10:44→18:45)
[2016-05-05] MEDS: HEPARIN 5,000 UNIT/0.5 ML SYR SC SCH ×2 (10:45→18:45)
--- NOTE | 2016-05-05 11:18 | SOAPPROG ---
SORAYA Progress Note Assessment/Plan: Assessment: 1. Recurrent Thymoma with SVC syndrome s/p thymectomy. Having quite a bit of pain, but stable 2. HTN At goal 3. ESRD Last HD Sun. Labs and volume are good. Will hold to Sunday. Will use his fistula. Plan: 04/24/16 08:34 05/05/16 11:16 Objective: Vital Signs Temp Pulse Resp BP Pulse Ox 36.4 C 118 H 12 91/61 L 90 L 05/05/16 10:00 05/05/16 10:00 05/05/16 10:00 05/05/16 10:00 05/05/16 10:00 Laboratory Results 05/05/16 04:35 05/05/16 04:35 05/04/16 05/05/16 05/06/16 05:59 05:59 05:59 Intake Total 1100 Output Total 358 435 Balance -358 665 PT 15.2 SEC (12.0-15.0) H 05/02/16 12:40 INR 1.20 (0.83-1.16) H 05/02/16 12:40 Physical Exam - Physical Exam General Appearance: no apparent distress Respiratory: decreased breath sounds Cardiac/Chest: regular rate, rhythm Extremities: normal inspection, other (Good bruit over fistule in LUE) Neuro/Psych: oriented x 3 ICD10 Worksheet Patient Problems: Problems Problem Status Onset Acute blood loss anemia Acute Status post thymectomy Acute ~04/25/16 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
--- NOTE | 2016-05-05 14:17 | SOAPPROG ---
SOAP Progress Note Assessment/Plan: Assessment: 45yo male s/p thrombectomy of fistula graft in Left arm 04/[address] Bhat. S/p thymectomy, LL lobectomy for thymoma. Resp failure. Arm hurts, awaiting dialysis trial today using LUE. Awake alert Left arm edematous, stapled incisions clean/dry, palpable thrill Plan see how dialysis goes today. If not successful then may need further access placement by Dr Bhat early next week. 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
[2016-05-05] MEDS ORDERED: ALBUMIN 25% 100 ML IV PRN (15:42)
[2016-05-05] MEDS: EPOETIN ALFA 10,000 UNIT/ML VIAL SC SCH (18:44)
[2016-05-06] MEDS: HEPARIN 5,000 UNIT/0.5 ML SYR SC SCH ×3 (01:07→16:57)
[2016-05-06] MEDS: OXYCODONE/APAP 5/325 TAB PO PRN ×2 (01:22→09:04)
[2016-05-06] MEDS: RENVELA PO SCH ×4 (07:44→16:57)
[2016-05-06 07:54] LABS: ALBUMIN 3.3 g/dL (3.5-5.0); ANION GAP 11 mEq/L (8-16); CALCIUM 8.7 mg/dL (8.5-10.4); CARBON DIOXIDE 27 mEq/l (22-31); CHLORIDE 99 mEq/L (97-110); CREATININE 5.7 mg/dL (0.7-1.3); GLOMERULAR FILTRATION RATE 11; GLUCOSE 91 mg/dL (70-100); POTASSIUM 3.9 mEq/L (3.5-5.2); SODIUM 137 mEq/L (134-144)
--- NOTE | 2016-05-06 09:04 | SOAPPROG ---
SOAP Progress Note Assessment/Plan: Assessment: 1. Postop recurrent Thymoma Having ongoing pain.Work on control. 2. ESRD HD MWF 3. Hypotension Looks dry. Give some IVF. Pain meds, anemia, or mediastinal issues could be affecting. Consider echo. He is not having symptoms. 4. Anemia Stable, on high dose epo 5. Access Very high venous pressures yesterday. Will discuss with Dr. Bhat and Aditya. Leave temp cath in place for now. 6. Constipation Try Senna first Subjective: Doing fair Objective: Vital Signs Temp Pulse Resp BP Pulse Ox 36.5 C 118 H 18 89/63 L 98 05/06/16 07:55 05/06/16 07:55 05/06/16 07:55 05/06/16 07:55 05/06/16 07:55 Laboratory Results 05/05/16 04:35 05/06/16 06:45 05/05/16 05/06/16 05/07/16 05:59 05:59 05:59 Intake Total 1100 400 Output Total 435 252 Balance 665 148 PT 15.2 SEC (12.0-15.0) H 05/02/16 12:40 INR 1.20 (0.83-1.16) H 05/02/16 12:40 Physical Exam - Physical Exam General Appearance: mild distress Neck: other (R IJ HD Cath) Respiratory: decreased breath sounds Cardiac/Chest: regular rate, rhythm, tachycardia Skin: normal color Extremities: normal inspection Neuro/Psych: oriented x 3 ICD10 Worksheet Patient Problems: Problems Problem Status Onset Acute blood loss anemia Acute Status post thymectomy Acute ~04/25/16 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
[2016-05-06] MEDS ORDERED: NS 1,000 ML IV SCH (09:15)
[2016-05-06] MEDS: CINACALCET HCL 30 MG TAB PO SCH (11:53)
--- NOTE | 2016-05-06 12:35 | SOAPPROG ---
SOAP Progress Note Assessment/Plan: Assessment: POD#11 radical thymectomy with LLLobectomy and goretex reconstruction of innominate vein, on cardiopulmonary bypass, via median sternotomy. 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 Extubation delayed until 04/29 for return to OR to attempt AV fistula salvage. Prolonged chest tubes d/t air leak. OR tubes converted to dart caths for recurrent PTX. 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 No dysphagia evident by VFSS and TFs switched to orals. Acute on chronic anemia - Expected surgical blood losses compounded by postCPB coagulopathy and AVF exploration. Additional PRBC prn BP support on dialysis. No evidence active bleeding. HIT Ab neg. ESRD on HD - Access via LUE AVF. Balloon occlusion of fistula to reduce venous flow and facilitate hemostatic control compl by thrombosis of graft. Gen surg unable to definitively re-establish flow as more centrally obstructed. Temp cath per rt CFV until IR able to relocate to RIJ. Shown by venogram to have patent AVF to innominate junction. Elev pressures noted during attempt to use fistula yest. RIJ cath maintained. Placement of tunneled cath expected pending more permanent access. Fluid management per nephrology. Remote CVA with residual left hemiparesis - Stable. Anticipate inpt rehab for postop reconditioning. Plan: Keep chest tubes to suction overnoc. Reconsider clamping trial in AM. Dialysis access per gen surg. 05/06/16 10:27 Subjective: Tired. Objective: Vital Signs Temp Pulse Resp BP Pulse Ox 36.8 C 111 H 15 86/55 L 98 05/06/16 11:28 05/06/16 11:28 05/06/16 11:28 05/06/16 11:28 05/06/16 11:28 Laboratory Results 05/05/16 04:35 05/06/16 06:45 05/05/16 05/06/16 05/07/16 05:59 05:59 05:59 Intake Total 1100 400 Output Total 435 252 Balance 665 148 PT 15.2 SEC (12.0-15.0) H 05/02/16 12:40 INR 1.20 (0.83-1.16) H 05/02/16 12:40 Chest pain with rt tube clamping trials. Persistent small bilat PTXs with chest tubes to WS. Physical Exam - Physical Exam General Appearance: no apparent distress Respiratory: lungs clear (grossly, anteriorly), other (bilat CTs to individual pleurovac, thin serosang drainage, no AL) Cardiac/Chest: regular rate, rhythm, tachycardia, other (Sternum grossly stable. 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
[2016-05-07] MEDS: HEPARIN 5,000 UNIT/0.5 ML SYR SC SCH ×2 (02:09→08:33)
[2016-05-07 04:58] LABS: % IMMATURE GRANULYOCYTES 0.7 % (0.0-1.1); ABSOLUTE IMMATURE GRANULOCYTES 0.05 10^3/uL (0.00-0.10); ADD DIFF? NO; ADD MORPH? NO; ADD SCAN? NO; ATYPICAL LYMPHOCYTE FLAG 20 (0-99); FRAGMENT RBC FLAG 0 (0-99); HEMATOCRIT 23.1 % (40.0-51.0); HEMOGLOBIN 7.5 g/dL (13.7-17.5); LEFT SHIFT FLG 0 (0-99); LIPEMIA HEMOLYSIS FLAG 80 (0-99); MEAN CELL HEMOGLOBIN 30.5 pg (27.9-34.1); MEAN CELL HEMOGLOBIN CONCENTR. 32.5 g/dL (32.4-36.7); MEAN CELL VOLUME 93.9 fL (81.5-99.8); MEAN PLATELET VOLUME 9.3 fL (8.7-11.7); PLATELET CLUMPS FLAG 10 (0-99); PLATELET COUNT 361 10^3/uL (150-400); RED BLOOD CELL COUNT 2.46 10^6/uL (4.40-6.38); RED CELL DISTRIBUTION WIDTH 14.5 % (11.5-15.2)
[2016-05-07 05:26] LABS: ANION GAP 10 mEq/L (8-16); CALCIUM 8.7 mg/dL (8.5-10.4); CARBON DIOXIDE 25 mEq/l (22-31); CHLORIDE 99 mEq/L (97-110); CREATININE 7.3 mg/dL (0.7-1.3); GLOMERULAR FILTRATION RATE 8; GLUCOSE 91 mg/dL (70-100); POTASSIUM 3.9 mEq/L (3.5-5.2); SODIUM 134 mEq/L (134-144)
[2016-05-07] MEDS: RENVELA PO SCH ×4 (08:33→20:01)
[2016-05-07] MEDS: CINACALCET HCL 30 MG TAB PO SCH (08:33)
--- NOTE | 2016-05-07 08:44 | SOAPPROG ---
SOAP Progress Note Assessment/Plan: Assessment: 1. Postop recurrent Thymoma Pt s/ sternotomy, resection of thymoma which was causing SVC syndrome, goretex reconstruction of innominate vein. Having ongoing pain.Work on control. 2. ESRD HD MWF 3. Hypotension Improving. 4. Anemia Stable, on high dose epo 5. Access Very high venous pressures Sunday. Will use graft tomorrow with lower QB. Discuss with Daniel Wellington. This may be as good as it gets. Will need to determine if he needs tunneled cath prior to DC. 6. Constipation Senna not effective. Try lactulose. Subjective: Doing fair Objective: Vital Signs Temp Pulse Resp BP Pulse Ox 36.9 C 105 H 15 99/71 L 97 05/07/16 07:37 05/07/16 07:37 05/07/16 07:37 05/07/16 07:37 05/07/16 07:37 Laboratory Results 05/07/16 04:45 05/07/16 04:45 05/06/16 05/07/16 05/08/16 05:59 05:59 05:59 Intake Total 400 1260 Output Total 252 605 Balance 148 655 PT 15.2 SEC (12.0-15.0) H 05/02/16 12:40 INR 1.20 (0.83-1.16) H 05/02/16 12:40 Physical Exam - Physical Exam General Appearance: mild distress Respiratory: lungs clear, decreased breath sounds Cardiac/Chest: regular rate, rhythm Extremities: normal inspection Neuro/Psych: oriented x 3 ICD10 Worksheet Patient Problems: Problems Problem Status Onset Acute blood loss anemia Acute Postoperative pneumothorax Acute Status post thymectomy Acute ~04/25/16 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
--- NOTE | 2016-05-07 15:17 | SOAPPROG ---
SOAP Progress Note Assessment/Plan: Assessment: POD#12 radical thymectomy with LLLobectomy and goretex reconstruction of innominate vein, on cardiopulmonary bypass, via median sternotomy. 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 Extubation delayed until 04/29 for return to OR to attempt AV fistula salvage. Prolonged chest tubes d/t air leak. OR tubes converted to dart caths for recurrent PTX. Stable lung expansion with suction. Early postop hoarseness resolving. No dysphagia evident by VFSS. Acute on chronic anemia - Expected surgical blood losses compounded by postCPB coagulopathy and AVF exploration. Additional PRBC prn BP support on dialysis. No evidence active bleeding. HIT Ab neg. ESRD on HD - Access via LUE AVF. Balloon occlusion of fistula to reduce venous flow and facilitate hemostatic control compl by thrombosis of graft. Gen surg unable to definitively re-establish flow as more centrally obstructed. Temp cath per rt CFV until IR able to relocate to RIJ. Shown by venogram to have patent AVF to innominate junction. Elev pressures noted during attempt to use fistula 05/05. RIJ cath maintained. Placement of tunneled cath expected pending more permanent access. Fluid management per nephrology. Remote CVA with residual left hemiparesis - Stable. Anticipate inpt rehab for postop reconditioning. Plan: Keep chest tubes to suction overnoc. Reconsider clamping trial in AM. Dialysis access per gen surg. 05/07/16 15:14 Subjective: Grumpy. Tired of being in hospitalized. Objective: Vital Signs Temp Pulse Resp BP Pulse Ox 36.7 C 122 H 18 104/68 99 05/07/16 11:43 05/07/16 11:43 05/07/16 11:43 05/07/16 11:43 05/07/16 11:43 Laboratory Results 05/07/16 04:45 05/07/16 04:45 05/06/16 05/07/16 05/08/16 05:59 05:59 05:59 Intake Total 400 1260 200 Output Total 252 605 Balance 148 655 200 PT 15.2 SEC (12.0-15.0) H 05/02/16 12:40 INR 1.20 (0.83-1.16) H 05/02/16 12:40 Rt apical PTX resolved with pleurovac to suction. LLL atelectasis and small volume PTX essentially unchanged. 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
[2016-05-07] MEDS: OXYCODONE/APAP 5/325 TAB PO PRN (21:16)
[2016-05-08 06:10] LABS: % IMMATURE GRANULYOCYTES 0.6 % (0.0-1.1); ABSOLUTE IMMATURE GRANULOCYTES 0.04 10^3/uL (0.00-0.10); ADD DIFF? NO; ADD MORPH? NO; ADD SCAN? NO; ATYPICAL LYMPHOCYTE FLAG 20 (0-99); FRAGMENT RBC FLAG 0 (0-99); HEMATOCRIT 22.1 % (40.0-51.0); HEMOGLOBIN 7.2 g/dL (13.7-17.5); LEFT SHIFT FLG 0 (0-99); LIPEMIA HEMOLYSIS FLAG 80 (0-99); MEAN CELL HEMOGLOBIN 30.9 pg (27.9-34.1); MEAN CELL HEMOGLOBIN CONCENTR. 32.6 g/dL (32.4-36.7); MEAN CELL VOLUME 94.8 fL (81.5-99.8); MEAN PLATELET VOLUME 8.9 fL (8.7-11.7); PLATELET CLUMPS FLAG 0 (0-99); PLATELET COUNT 398 10^3/uL (150-400); RED BLOOD CELL COUNT 2.33 10^6/uL (4.40-6.38); RED CELL DISTRIBUTION WIDTH 14.6 % (11.5-15.2)
[2016-05-08 06:27] LABS: ANION GAP 12 mEq/L (8-16); CALCIUM 8.6 mg/dL (8.5-10.4); CARBON DIOXIDE 25 mEq/l (22-31); CHLORIDE 100 mEq/L (97-110); GLOMERULAR FILTRATION RATE 6; GLUCOSE 86 mg/dL (70-100); POTASSIUM 4.4 mEq/L (3.5-5.2); SODIUM 137 mEq/L (134-144)
[2016-05-08 06:28] LABS: CREATININE 9.4 mg/dL (0.7-1.3)
[2016-05-08] MEDS ORDERED: ENOXAPARIN 30 MG/0.3 ML SYR SC SCH (09:00)
--- NOTE | 2016-05-08 09:28 | SOAPPROG ---
SOAP Progress Note Assessment/Plan: Assessment: 45yo male s/p thrombectomy of fistula graft in Left arm 04/[address] Bhat. S/p thymectomy, LL lobectomy for thymoma. Resp failure. saw pt during dialysis, LUE fistula not able to be used, had clot, minimal backflow per nursing will likely need Tunneled Catheter, will discuss with Dr Bhat . 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
--- NOTE | 2016-05-08 09:32 | SOAPPROG ---
SORAYA Progress Note Assessment/Plan: Assessment:Plan: ESRD-on Hd MWF at [facility] with Dr. Jacques -dialysis today -UF as tolerated LUE and facial edema-SVC syndrome with chest mass -s/p resection of thymoma -still with facial edema Anemia-s/p PRBC's -on EPO Access-unable to use AVF -lower needle okay -only able to aspirate clotted blood from upper site -likely will need conversion of current R IJ to tunneled catheter -per Dr. Burgess, current catheter crosses a severe SVC stenosis -this would need stenting to avoid ongoing SVC syndrome with placement of chronic tunneled catheter at this site -will need to coordinate with surgery and radiology 05/08/16 09:28 Subjective: stable on Hd Objective: Vital Signs Temp Pulse Resp BP Pulse Ox 36.7 C 105 H 14 102/69 88 L 05/08/16 04:00 05/08/16 04:00 05/08/16 04:00 05/08/16 04:00 05/08/16 04:00 Laboratory Results 05/08/16 05:40 05/08/16 05:40 05/07/16 05/08/16 05/09/16 05:59 05:59 05:59 Intake Total 1260 200 Output Total 605 350 50 Balance 655 -150 -50 PT 15.2 SEC (12.0-15.0) H 05/02/16 12:40 INR 1.20 (0.83-1.16) H 05/02/16 12:40 Physical Exam - Physical Exam General Appearance: no apparent distress EENT: other (facial edema) Neck: normal inspection Respiratory: lungs clear, normal breath sounds, decreased breath sounds (at bases) Cardiac/Chest: regular rate, rhythm Abdomen: normal bowel sounds Extremities: swelling (of LUE, AV access with bruit) ICD10 Worksheet Patient Problems: Problems Problem Status Onset Acute blood loss anemia Acute Postoperative pneumothorax Acute Status post thymectomy Acute ~04/25/16 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
--- NOTE | 2016-05-08 11:41 | SOAPPROG ---
SOAP Progress Note Assessment/Plan: Assessment: POD#13 radical thymectomy with LLLobectomy and goretex reconstruction of innominate vein, on cardiopulmonary bypass, via median sternotomy. D#6 RIJ temp dialysis cath D#5 Bilat thal-quik chest tubes SVC compression syndrome by enlarging thymic mass - Partial left lower lobectomy , innominate vein resection, and vagus/recurrent laryngeal nerve skeletonization required to fully remove tumor. 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 Extubation delayed until 04/29 for return to OR to attempt AV fistula salvage. Prolonged chest tubes d/t air leak. OR tubes converted to dart caths for recurrent PTX. Stable lung expansion with suction. Early postop hoarseness resolving. No dysphagia evident by VFSS. Acute on chronic anemia - Expected surgical blood losses compounded by postCPB coagulopathy and AVF exploration. Additional PRBC prn BP support on dialysis. No evidence active bleeding. HIT Ab neg. ESRD on HD - Access via LUE AVF. Balloon occlusion of fistula to reduce venous flow and facilitate hemostatic control compl by thrombosis of graft. Gen surg unable to definitively re-establish flow as more centrally obstructed. Temp cath per rt CFV until IR able to relocate to RIJ. Shown by venogram to have patent AVF to innominate junction. Elev pressures noted during attempt to use fistula 05/05. RIJ cath maintained. Placement of tunneled cath expected pending more permanent access. Fluid management per nephrology. Remote CVA with residual left hemiparesis - Stable. Anticipate inpt rehab vs SNF for postop reconditioning. Sister very involved and pushing for home. Plan: Left chest tube clamping trial. CXR in am. Chest staple removal tomorrow. Dialysis access per gen surg. 05/08/16 11:38 Subjective: Tired and cold after dialysis. Flat affect. Objective: Vital Signs Temp Pulse Resp BP Pulse Ox 36.7 C 105 H 14 102/69 88 L 05/08/16 04:00 05/08/16 04:00 05/08/16 04:00 05/08/16 04:00 05/08/16 04:00 Laboratory Results 05/08/16 05:40 05/08/16 05:40 05/07/16 05/08/16 05/09/16 05:59 05:59 05:59 Intake Total 1260 200 Output Total 605 350 50 Balance 655 -150 -50 PT 15.2 SEC (12.0-15.0) H 05/02/16 12:40 INR 1.20 (0.83-1.16) H 05/02/16 12:40 CXR-> essentially unchanged. Tiny rt apical PTX. Small left PTX. 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
[2016-05-08] MEDS: OXYCODONE/APAP 5/325 TAB PO PRN ×2 (12:05→20:03)
[2016-05-08] MEDS: CINACALCET HCL 30 MG TAB PO SCH (12:11)
[2016-05-08] MEDS: RENVELA PO SCH ×3 (12:13→18:52)
[2016-05-08] MEDS: HEPARIN 5,000 UNIT/0.5 ML SYR SC SCH ×2 (12:15→20:06)
--- NOTE | 2016-05-08 20:42 | SOAPPROG ---
SORAYA Progress Note Assessment/Plan: Assessment: ultrasound and venogram show open left avf but no mediastinal outflow Plan: attempt to use avf rather new catheter or avf placement 05/02/16 18:39 05/08/16 20:40 PATIENT HAVING HYPERTENSION AND IS LEFT ARM AV GRAFT. HE ALSO HAS COMPLICATION OF THE SVC STENOSIS MAKING A TUNNELED CATHETER NOT A GREAT OPTION WITHOUT STENTING THE SVC. THE OTHER OPTION IS A GORE-MATEUSZ GRAFT IN THE RIGHT ARM WHICH COULD BE USED TO FAIRLY SOON AND OBVIATE THE NEED FOR A TUNNELED CATHETER. WILL DISCUSS WITH DR. 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
[2016-05-09] MEDS: OXYCODONE/APAP 5/325 TAB PO PRN (03:52)
[2016-05-09 06:16] LABS: % IMMATURE GRANULYOCYTES 0.5 % (0.0-1.1); ABSOLUTE IMMATURE GRANULOCYTES 0.04 10^3/uL (0.00-0.10); ADD DIFF? NO; ADD MORPH? NO; ADD SCAN? NO; ATYPICAL LYMPHOCYTE FLAG 0 (0-99); FRAGMENT RBC FLAG 0 (0-99); HEMATOCRIT 23.2 % (40.0-51.0); HEMOGLOBIN 7.4 g/dL (13.7-17.5); LEFT SHIFT FLG 0 (0-99); LIPEMIA HEMOLYSIS FLAG 80 (0-99); MEAN CELL HEMOGLOBIN 30.3 pg (27.9-34.1); MEAN CELL HEMOGLOBIN CONCENTR. 31.9 g/dL (32.4-36.7); MEAN CELL VOLUME 95.1 fL (81.5-99.8); MEAN PLATELET VOLUME 9.2 fL (8.7-11.7); PLATELET CLUMPS FLAG 0 (0-99); PLATELET COUNT 424 10^3/uL (150-400); RED BLOOD CELL COUNT 2.44 10^6/uL (4.40-6.38); RED CELL DISTRIBUTION WIDTH 14.6 % (11.5-15.2)
[2016-05-09 06:24] LABS: ANION GAP 8 mEq/L (8-16); CALCIUM 8.9 mg/dL (8.5-10.4); CARBON DIOXIDE 27 mEq/l (22-31); CHLORIDE 98 mEq/L (97-110); CREATININE 6.1 mg/dL (0.7-1.3); GLOMERULAR FILTRATION RATE 10; GLUCOSE 79 mg/dL (70-100); POTASSIUM 4.7 mEq/L (3.5-5.2); SODIUM 133 mEq/L (134-144)
[2016-05-09] MEDS: RENVELA PO SCH ×3 (08:13→18:46)
[2016-05-09] MEDS: CINACALCET HCL 30 MG TAB PO SCH (08:27)
[2016-05-09] MEDS: HEPARIN 5,000 UNIT/0.5 ML SYR SC SCH ×2 (08:30→20:02)
[2016-05-09] MEDS ORDERED: traMADol 50 MG TAB PO PRN (09:44)
--- NOTE | 2016-05-09 13:18 | SOAPPROG ---
SOAP Progress Note Assessment/Plan: POD#14 radical thymectomy with LLLobectomy and goretex reconstruction of innominate vein, on cardiopulmonary bypass, via median sternotomy. D#7 RIJ temp dialysis cath D#6 Bilat thal-quik chest tubes SVC compression syndrome by enlarging thymic mass - Partial left lower lobectomy , innominate vein resection, and vagus/recurrent laryngeal nerve skeletonization required to fully remove tumor. 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 Extubation delayed until 04/29 for return to OR to attempt AV fistula salvage. Prolonged chest tubes d/t air leak. OR tubes converted to dart caths for recurrent PTX. Stable lung expansion with suction. Left chest tube d/c'd this AM. Early postop hoarseness resolving. No dysphagia evident by VFSS. Acute on chronic anemia - Expected surgical blood losses compounded by postCPB coagulopathy and AVF exploration. Additional PRBC prn BP support on dialysis. No evidence active bleeding. HIT Ab neg. ESRD on HD - Access via LUE AVF. Balloon occlusion of fistula to reduce venous flow and facilitate hemostatic control compl by thrombosis of graft. Gen surg unable to definitively re-establish flow as more centrally obstructed. Temp cath per rt CFV until IR able to relocate to RIJ. Shown by venogram to have patent AVF to innominate junction. Elev pressures noted during attempt to use fistula. RIJ cath maintained. Placement of tunneled cath expected pending more permanent access. Fluid management per nephrology. Remote CVA with residual left hemiparesis - Stable. Anticipate inpt rehab vs SNF for postop reconditioning. Sister very involved and pushing for home. Subjective: Denies SOB. Eager to get home. Objective: Vital Signs Temp Pulse Resp BP Pulse Ox 36.6 C 110 H 20 77/54 L 95 05/09/16 11:59 05/09/16 12:08 05/09/16 11:59 05/09/16 12:08 05/09/16 11:59 Laboratory Results 05/09/16 05:47 05/09/16 05:47 05/08/16 05/09/16 05/10/16 05:59 05:59 05:59 Intake Total 200 550 150 Output Total 350 120 Balance -150 430 150 PT 15.2 SEC (12.0-15.0) H 05/02/16 12:40 INR 1.20 (0.83-1.16) H 05/02/16 12:40 Physical Exam - Physical Exam General Appearance: alert, no apparent distress, thin EENT: No scleral icterus (R), No scleral icterus (L) Neck: normal inspection Respiratory: other (right CT without air leak), No respiratory distress Cardiac/Chest: tachycardia Abdomen: non-tender, soft, No distended Skin: normal color, warm/dry Extremities: No pedal edema Neuro/Psych: no motor/sensory deficits, alert, normal mood/affect, oriented x 3 ICD10 Worksheet Patient Problems: Problems Problem Status Onset Acute blood loss anemia Acute Postoperative pneumothorax Acute Status post thymectomy Acute ~04/25/16 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
--- NOTE | 2016-05-09 17:07 | SOAPPROG ---
SORAYA Progress Note Assessment/Plan: Assessment: 1. esrd: hd tomorrow on typical mwf schedule. Suspect will need tunneled cath on d/c as avg appears tenuous. 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 termination clerk will likely need LE access. 2. thymoma: s/p resection, pt has previously refused chemo. 3. anemia: transfused Plan: 04/22/16 17:39 04/23/16 15:34 05/03/16 17:52 05/09/16 17:04 Subjective: no new c/o. Still with one chest tube. Dialyzed via catheter yesterday. Objective: Vital Signs Temp Pulse Resp BP Pulse Ox 36.7 C 112 H 16 89/64 L 100 05/09/16 15:15 05/09/16 15:15 05/09/16 15:15 05/09/16 15:15 05/09/16 15:15 Laboratory Results 05/09/16 05:47 05/09/16 05:47 05/08/16 05/09/16 05/10/16 05:59 05:59 05:59 Intake Total 200 550 150 Output Total 350 120 Balance -150 430 150 PT 15.2 SEC (12.0-15.0) H 05/02/16 12:40 INR 1.20 (0.83-1.16) H 05/02/16 12:40 Physical Exam - Physical Exam General Appearance: other (chronically-ill appearing) Respiratory: decreased breath sounds Cardiac/Chest: regular rate, rhythm Extremities: pedal edema (none) ICD10 Worksheet Patient Problems: Problems Problem Status Onset Acute blood loss anemia Acute Postoperative pneumothorax Acute Status post thymectomy Acute ~04/25/16 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
[2016-05-10 05:29] LABS: ALBUMIN 2.9 g/dL (3.5-5.0); ANION GAP 11 mEq/L (8-16); CALCIUM 8.3 mg/dL (8.5-10.4); CARBON DIOXIDE 26 mEq/l (22-31); CHLORIDE 97 mEq/L (97-110); GLOMERULAR FILTRATION RATE 7; GLUCOSE 84 mg/dL (70-100); POTASSIUM 4.5 mEq/L (3.5-5.2); SODIUM 134 mEq/L (134-144)
[2016-05-10 05:53] LABS: CREATININE 8.2 mg/dL (0.7-1.3)
--- NOTE | 2016-05-10 08:41 | SOAPPROG ---
SORAYA Progress Note Assessment/Plan: Assessment: 1. ESRD. HD today per MWF schedule. 2. Thymoma. S/p radical resection. Ch tube per CT surg. 3. Access. L AVF. SVC stenosis. To IR today to address central stenosis and replace IJ temp with tunneled cath. 4. Anemia. Hgb stable. S/p tx. Continue procrit. Plan: 04/26/16 09:05 04/26/16 09:10 04/26/16 09:12 04/26/16 09:13 04/27/16 06:56 04/27/16 06:58 05/10/16 08:38 Subjective: Pt seen and examined on dialysis. Feels cold. Objective: Vital Signs Temp Pulse Resp BP Pulse Ox 37.6 C 94 18 93/68 L 98 05/10/16 04:00 05/10/16 04:00 05/10/16 04:00 05/10/16 04:00 05/10/16 04:00 Laboratory Results 05/09/16 05:47 05/10/16 04:50 05/09/16 05/10/16 05/11/16 05:59 05:59 05:59 Intake Total 550 1050 Output Total 120 355 Balance 430 695 PT 15.2 SEC (12.0-15.0) H 05/02/16 12:40 INR 1.20 (0.83-1.16) H 05/02/16 12:40 Has been afebrile > 24h On dialysis Qb 350 BP 92/57, UF goal net 0 RRR, no m/g/r CTAB. Chest tube in place Abdom soft, nt L upper arm swollen. 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
--- NOTE | 2016-05-10 10:40 | SOAPPROG ---
SORAYA Progress Note Assessment/Plan: Assessment: 1. Thyoma - type B2 - R1 resection (positive margins) 2. ESRD 3. Anemia due to #2 and post-op blood loss Plan: - pt should f/u with Dr. Colon at cancer center when he is discharged. Pt may be a candidate for post-op RT, or possibly not due to other comorbitidies. - we will sign off at this point. please reconsult if there are further questions. 05/10/16 10:38 Subjective: pt feels tired. Objective: exam: tired lungs CTA. chest tube in place. 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
[2016-05-10] MEDS: CINACALCET HCL 30 MG TAB PO SCH (11:11)
[2016-05-10] MEDS: RENVELA PO SCH ×3 (11:11→16:40)
--- NOTE | 2016-05-10 11:43 | SOAPPROG ---
SOAP Progress Note Assessment/Plan: Assessment: POD#15 radical thymectomy with LLLobectomy and goretex reconstruction of innominate vein, on cardiopulmonary bypass, via median sternotomy. D#8 RIJ temp dialysis cath D#7 Bilat thal-quik chest tubes SVC compression syndrome by enlarging thymic mass - Partial left lower lobectomy , innominate vein resection, and vagus/recurrent laryngeal nerve skeletonization required to fully remove tumor. 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 Extubation delayed until 2 for return to OR to attempt AV fistula salvage. Prolonged chest tubes d/t air leak. OR tubes converted to dart caths for recurrent PTX. Stable lung expansion with suction. Left tube out. Rt tube removal expected tomorrow. Early postop hoarseness resolving. No dysphagia evident by VFSS. Acute on chronic anemia - Expected surgical blood losses compounded by postCPB coagulopathy and AVF exploration. Additional PRBC prn BP support on dialysis. No evidence active bleeding. HIT Ab neg. ESRD on HD - Access via LUE AVF. Balloon occlusion of fistula to reduce venous flow and facilitate hemostatic control compl by thrombosis of graft. Gen surg unable to definitively re-establish flow as more centrally obstructed. Temp cath per rt CFV until IR able to relocate to RIJ. Shown by venogram to have patent AVF to innominate junction. Elev pressures noted during attempt to use fistula 2. RIJ cath maintained. Placement of tunneled cath expected pending more permanent access. Fluid management per nephrology. Remote CVA with residual left hemiparesis - Stable. Anticipate inpt rehab vs SNF for postop reconditioning. Sister very involved and pushing for home. Plan: Every other chest staple out. Rt chest tube clamping trial. CXR in am. Tunneled dialysis cath per IR. Dispo - Possibly home w HHC/PT next 1-2 days. 05/10/16 10:39 Subjective: Doing ok. Wants to go home. Objective: Vital Signs Temp Pulse Resp BP Pulse Ox 37.6 C 94 18 93/68 L 98 05/10/16 04:00 05/10/16 04:00 05/10/16 04:00 05/10/16 04:00 05/10/16 04:00 Laboratory Results 05/09/16 05:47 05/10/16 04:50 05/09/16 05/10/16 05/11/16 05:59 05:59 05:59 Intake Total 550 1050 Output Total 120 355 Balance 430 695 PT 15.2 SEC (12.0-15.0) H 05/02/16 12:40 INR 1.20 (0.83-1.16) H 05/02/16 12:40 Left chest tube pulled yest. Rt tube maintained to suction. Today's CXR -> no PTX. Physical Exam - Physical Exam General Appearance: alert, no apparent distress Respiratory: other (Rt chest tube no tidal, no air leak. Clamped at skin.) Cardiac/Chest: regular rate, rhythm, tachycardia, other (Sternum grossly stable. 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
[2016-05-10] MEDS ORDERED: HEPARIN 50,000 UNIT/10 ML VIAL ONE (17:00)
[2016-05-10] MEDS: OXYCODONE/APAP 5/325 TAB PO PRN (18:14)
[2016-05-10] MEDS: HEPARIN 5,000 UNIT/0.5 ML SYR SC SCH (23:16)
[2016-05-11] MEDS: RENVELA PO SCH ×3 (07:52→17:19)
--- NOTE | 2016-05-11 09:57 | SOAPPROG ---
SOAP Progress Note Assessment/Plan: POD#16 radical thymectomy with LLLobectomy and goretex reconstruction of innominate vein, on cardiopulmonary bypass, via median sternotomy. 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 Extubation delayed until 04/29 for return to OR to attempt AV fistula salvage. Prolonged chest tubes d/t air leak. OR tubes converted to dart caths for recurrent PTX. Stable lung expansion with suction. Left chest tube d/c'd this AM. Right CT clamped since 05/10 without PTX. Plan to d/c after tunnelled permacath placed. Early postop hoarseness resolving. No dysphagia evident by VFSS. Acute on chronic anemia - Expected surgical blood losses compounded by postCPB coagulopathy and AVF exploration. Additional PRBC prn BP support on dialysis. No evidence active bleeding. HIT Ab neg. ESRD on HD - Access via LUE AVF. Balloon occlusion of fistula to reduce venous flow and facilitate hemostatic control compl by thrombosis of graft. Gen surg unable to definitively re-establish flow as more centrally obstructed. Shown by venogram to have patent AVF to innominate junction. Elev pressures noted during attempt to use fistula. RIJ cath maintained. Placement of tunneled cath expected today. Fluid management per nephrology. Remote CVA with residual left hemiparesis - Stable. Anticipate inpt rehab vs SNF for postop reconditioning. Sister very involved and pushing for home. 05/11/16 09:54 Subjective: Feels well. +BM. Eager to get home with sister. Objective: Vital Signs Temp Pulse Resp BP Pulse Ox 36.6 C 107 H 18 89/59 L 90 L 05/11/16 07:57 05/11/16 07:57 05/11/16 07:57 05/11/16 07:57 05/11/16 07:57 Laboratory Results 05/09/16 05:47 05/11/16 06:00 05/10/16 05/11/16 05/12/16 05:59 05:59 05:59 Intake Total 1050 200 Output Total 355 140 Balance 695 60 PT 15.2 SEC (12.0-15.0) H 05/02/16 12:40 INR 1.20 (0.83-1.16) H 05/02/16 12:40 Physical Exam - Physical Exam General Appearance: WD/WN, alert, no apparent distress EENT: No scleral icterus (R), No scleral icterus (L) Neck: normal inspection Respiratory: No respiratory distress Cardiac/Chest: tachycardia Abdomen: non-tender, soft, No distended Skin: normal color, warm/dry Extremities: No pedal edema Neuro/Psych: alert, normal mood/affect, oriented x 3, motor weakness (left) ICD10 Worksheet Patient Problems: Problems Problem Status Onset Acute blood loss anemia Acute Postoperative pneumothorax Acute Status post thymectomy Acute ~04/25/16 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
[2016-05-11] MEDS: CINACALCET HCL 30 MG TAB PO SCH (10:38)
[2016-05-11] MEDS: HEPARIN 5,000 UNIT/0.5 ML SYR SC SCH ×2 (10:39→19:41)
[2016-05-11 11:13] LABS: ANION GAP 12 mEq/L (8-16); CALCIUM 8.4 mg/dL (8.5-10.4); CARBON DIOXIDE 25 mEq/l (22-31); CHLORIDE 97 mEq/L (97-110); CREATININE 6.8 mg/dL (0.7-1.3); GLOMERULAR FILTRATION RATE 9; GLUCOSE 78 mg/dL (70-100); POTASSIUM 4.4 mEq/L (3.5-5.2); SODIUM 134 mEq/L (134-144)
--- NOTE | 2016-05-11 11:42 | SOAPPROG ---
SOAP Progress Note Assessment/Plan: Assessment/Plan: ESRD: on HD MWF. - HD next on Sunday per routine. Access: Have been able to use AVG last week, although pt refused to have it stuck this week. Plan for stent SVC and then convert temp cath to tunneled catheter today, bridge club manager plan to place lower extremity access in the future. Anemia: pt getting epo, next dose tomorrow. Subjective: No acute events overnight. Pt had HD yesterday, refused to have AVG used. Objective: Vital Signs Temp Pulse Resp BP Pulse Ox 36.6 C 107 H 18 89/59 L 90 L 05/11/16 07:57 05/11/16 07:57 05/11/16 07:57 05/11/16 07:57 05/11/16 07:57 Laboratory Results 05/09/16 05:47 05/11/16 07:38 05/10/16 05/11/16 05/12/16 05:59 05:59 05:59 Intake Total 1050 200 Output Total 355 140 Balance 695 60 PT 15.2 SEC (12.0-15.0) H 05/02/16 12:40 INR 1.20 (0.83-1.16) H 05/02/16 12:40 General: alert and oriented, no acute distress Eyes; EOMI, PERRL OP: Clear CV: RRR Resp: nonlabored respirations Abd: Soft, NT Ext: no edema BLE Neuro: CN II-XII grossly intact, no asterixis Psych: cooperative, appropriate mood and affect Access: LUE AVG with slight thrill and bruit, RIJ temporary catheter ICD10 Worksheet Patient Problems: Problems Problem Status Onset Acute blood loss anemia Acute Postoperative pneumothorax Acute Status post thymectomy Acute ~04/25/16 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
[2016-05-11] MEDS ORDERED: fentaNYL 100 MCG/2 ML INJ ONE (13:20)
[2016-05-11] MEDS ORDERED: MIDAZOLAM 2 MG/2 ML VIAL ONE (13:22)
[2016-05-11] MEDS ORDERED: LIDOCAINE 1% 30 ML SDV ONE (15:00)
[2016-05-11] MEDS ORDERED: IOPAMIDOL (ISOVUE-300) 100 ML BTL IV ONE (15:00)
[2016-05-11] MEDS ORDERED: HEPARIN 50,000 UNIT/10 ML VIAL ONE (15:13)
--- NOTE | 2016-05-11 15:47 | POSTOPPROG ---
Post Op Note Date of Operation: 05/11/16 Surgeon: Vesta Burgess Anesthesia: IV Sedation (fentanyl and versed) Pre-op Diagnosis: SVC stenosis, ESRD Post-op Diagnosis: same Indication: SVC stenosis at risk for SVC syndrome Procedure: SVC stent, tunneled dialysis catheter placemet. Findings: please see report Inf/Abcess present in the surg proc area at time of surgery?: No Depth: Superfical (Skin SQ) EBL: Minimal Complications: None
[2016-05-11] MEDS: OXYCODONE/APAP 5/325 TAB PO PRN (17:18)
[2016-05-11] MEDS ORDERED: OXYCODONE/APAP 5/325 TAB PO ONE (22:00)
[2016-05-12 08:35] LABS: HEMATOCRIT 21.3 % (40.0-51.0); HEMOGLOBIN 7.2 g/dL (13.7-17.5); MEAN CELL HEMOGLOBIN 30.9 pg (27.9-34.1); MEAN CELL HEMOGLOBIN CONCENTR. 33.8 g/dL (32.4-36.7); MEAN CELL VOLUME 91.4 fL (81.5-99.8); RED BLOOD CELL COUNT 2.33 10^6/uL (4.40-6.38); RED CELL DISTRIBUTION WIDTH 14.1 % (11.5-15.2)
[2016-05-12 11:14] VITALS: BP 87/66; PULSE 113; RESP 18; TEMP 98.1
[2016-05-12] MEDS: RENVELA PO SCH ×2 (11:40→12:17)
[2016-05-12 11:42] VITALS: O2SAT 86
[2016-05-12] MEDS: CINACALCET HCL 30 MG TAB PO SCH (12:15)
[2016-05-12] MEDS: HEPARIN 5,000 UNIT/0.5 ML SYR SC SCH (12:19)
--- NOTE | 2016-05-12 13:50 | SOAPPROG ---
SOAP Progress Note Assessment/Plan: Assessment: POD#17 radical thymectomy with LLLobectomy and goretex reconstruction of innominate vein, on cardiopulmonary bypass, via median sternotomy. 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 Extubation delayed until 04/29 for return to OR to attempt AV fistula salvage. Prolonged chest tubes d/t air leak. OR tubes converted to thal-quik caths for recurrent PTX. Stable lung expansion with suction. Both tubes removed after clamping trials. Early postop hoarseness resolving. No dysphagia evident by VFSS. Acute on chronic anemia - Expected surgical blood losses compounded by postCPB coagulopathy and AVF exploration. Additional PRBC prn BP support on dialysis. No evidence active bleeding. HIT Ab neg. ESRD on HD - Access via LUE AVF. Balloon occlusion of fistula to reduce venous flow and facilitate hemostatic control compl by thrombosis of graft. Gen surg unable to definitively re-establish flow as more centrally obstructed. Temp cath per rt CFV until IR able to relocate to RIJ. Shown by venogram to have patent AVF to innominate junction. SVC successfully stented. RIJ cath converted to tunneled cath pending reattempted use AVF. Fluid management per nephrology. Remote CVA with residual left hemiparesis - Stable. Sister very involved and pushing for home with home PT. Plan: Chest anamaria removed. Rt chest tube removed. LUE staple removal if ok with gen surg. Dispo - Home w HHC/PT if CXR ok. 05/12/16 11:49 Subjective: Doing ok. Cold after dialysis. Losing track of time. Wants to go home. Objective: Vital Signs Temp Pulse Resp BP Pulse Ox 36.7 C 113 H 18 87/66 L 86 L 05/12/16 11:07 05/12/16 11:07 05/12/16 11:07 05/12/16 11:07 05/12/16 11:41 Laboratory Results 05/12/16 07:52 05/11/16 07:38 05/11/16 05/12/16 05/13/16 05:59 05:59 05:59 Intake Total 200 240 Output Total 140 350 Balance 60 -110 PT 15.2 SEC (12.0-15.0) H 05/02/16 12:40 INR 1.20 (0.83-1.16) H 05/02/16 12:40 IR procedures yest without apparent complication. CXR w rt tube clamped neg for PTX. Physical Exam - Physical Exam General Appearance: alert, no apparent distress Respiratory: other (Coarse breath sounds, productive cough. Rt chest cath unclamped. No air or drainage. Tube removed. Coughing spell while dressing being applied w audible air release and copious serous fluid. Absorbent dressing applied and pCXR ordered) Cardiac/Chest: regular rate, rhythm, other (Sternum grossly stable. Sternotomy healing well. Remaining anamaria d/cd.) Abdomen: soft Skin: warm/dry Extremities: swelling (2+ LUE. Multiple upper arm wounds CDI. Minimal eschar. 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
--- NOTE | 2016-05-12 14:48 | SOAPPROG ---
SORAYA Progress Note Assessment/Plan: Assessment: 1. ESRD. HD done earlier today per F schedule. 2. Thymoma. S/p radical resection. 3. Access. L AVF. SVC stenosis. SVC stent today to address central stenosis and s/p replacement of IJ temp with tunneled cath. 4. Anemia. Hgb stable. S/p tx. Continue procrit. Plan: 04/26/16 09:05 04/26/16 09:10 04/26/16 09:12 04/26/16 09:13 04/27/16 06:56 04/27/16 06:58 05/10/16 08:38 05/12/16 14:49 Subjective: Had dialysis this am. Has felt very cold since. Had some leaking of fluid from his right sided chest wound. Has cough with green sputum production, denies fevers. Had SVC stent and tunneled cath placement yesterday by Dr. Burgess. Objective: Vital Signs Temp Pulse Resp BP Pulse Ox 36.7 C 113 H 18 87/66 L 86 L 05/12/16 11:07 05/12/16 11:07 05/12/16 11:07 05/12/16 11:07 05/12/16 11:41 Laboratory Results 05/12/16 07:52 05/11/16 07:38 05/11/16 05/12/16 05/13/16 05:59 05:59 05:59 Intake Total 200 240 Output Total 140 350 Balance 60 -110 PT 15.2 SEC (12.0-15.0) H 05/02/16 12:40 INR 1.20 (0.83-1.16) H 05/02/16 12:40 Sitting in chair RRR, no m/g/r CTAB Abdom mildly distended, nt L arm with 2+ edema, none on R or in LEs R ch wall tunneled HD cath in place ICD10 Worksheet Patient Problems: Problems Problem Status Onset Postoperative pneumothorax Acute Acute blood loss anemia Acute Status post thymectomy Acute ~04/25/16 ESRD (end stage renal disease) Chronic Superior vena cava compression syndrome Acute Thymoma 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
[2016-05-12] MEDS: OXYCODONE/APAP 5/325 TAB PO PRN (15:43)
[2016-05-12] MEDS: EPOETIN ALFA 10,000 UNIT/ML VIAL SC SCH (15:44)
--- NOTE | 2016-05-12 15:47 | PDIAF ---
- Diagnosis Diagnosis: Invasive thymoma s/p radical thymectomy with LLlobectomy, ESRD, remote CVA Code Status: Full Code - Medication Management Discharge Medications: Medications to Continue on Transfer Cinacalcet HCl [Sensipar (*)] 30 mg PO DAILY 04/20/16 [Last Taken 04/19/16] Sevelamer Carbonate [Renvela] 1,600 mg PO TID 04/20/16 [Last Taken 04/20/16 19: 15] Acetaminophen [Tylenol 325mg (*)] 325 - 650 mg PO Q4HRS PRN #0 tab 05/12/16 [ Last Taken Unknown] oxyCODONE/APAP 5/325 [Percocet 5/325 (*)] 1 tab PO Q6H PRN #0 tab 05/12/16 [ Last Taken Unknown] Discharge Medications: Refer to the Discharge Home Medication list for PRN reason. PICC Care - Routine: N/A - Orders Services needed: Registered Nurse (home eval of [facility] dialysis cath and wound monitoring), Physical Therapy (sternal precautions x 2 more weeks, rt hemiparesis post remote CVA) Oxygen: prn SpO2 < 90% Diet Recommendation: other (renal) Diet Texture: Regular Texture Diet Wound Care Instructions: daily soap and water Activity/Weight Bearing Restrictions: sternal precautions x 2 more weeks. Additional: epo, anemia monitoring per nephrology. - Follow Up Care Current Providers and Referrals: IN STATE,. [Unknown] - Jeet Bhat MD [Medical Doctor] - follow up in 2 weeks (wound check left arm) Carlos Jacques MD [Medical Doctor] - Sherwin Skinner DO [Doctor of Osteopathy] - 05/23/16 10:45 am
--- NOTE | 2016-05-12 17:02 | SOAPPROG ---
SORAYA Progress Note Assessment/Plan: Assessment: ultrasound and venogram show open left avf but no mediastinal outflow Plan: attempt to use avf rather new catheter or avf placement 05/02/16 18:39 05/08/16 20:40 PATIENT HAVING HYPERTENSION AND IS LEFT ARM AV GRAFT. HE ALSO HAS COMPLICATION OF THE SVC STENOSIS MAKING A TUNNELED CATHETER NOT A GREAT OPTION WITHOUT STENTING THE SVC. THE OTHER OPTION IS A GORE-MATEUSZ GRAFT IN THE RIGHT ARM WHICH COULD BE USED TO FAIRLY SOON AND OBVIATE THE NEED FOR A TUNNELED CATHETER. WILL DISCUSS WITH DR. JAMESON 05/12/16 17:00 LEFT ARM WOUNDS DOING WELL / DIRK CAN BE REMOVED / FLOW PRESENT IN THE LEFT AV GRAFT / HOPEFULLY THAT WILL REMAIN USEFUL FOR DIALYSIS / IF NOT A RIGHT ARM GRAFT OR A GROIN GRAFT IR AV FISTULA COULD BE CREATED / WILL FOLLOW UP OUTPATIENT IN 2-3 WEEKS Objective: Vital Signs Temp Pulse Resp BP Pulse Ox 36.7 C 113 H 18 87/66 L 86 L 05/12/16 11:07 05/12/16 11:07 05/12/16 11:07 05/12/16 11:07 05/12/16 11:41 Laboratory Results 05/12/16 07:52 05/11/16 07:38 05/11/16 05/12/16 05/13/16 05:59 05:59 05:59 Intake Total 200 240 Output Total 140 350 Balance 60 -110 PT 15.2 SEC (12.0-15.0) H 05/02/16 12:40 INR 1.20 (0.83-1.16) H 05/02/16 12:40 ICD10 Worksheet Patient Problems: Problems Problem Status Onset Acute blood loss anemia Acute Postoperative pneumothorax Acute Status post thymectomy Acute ~04/25/16 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
[2016-05-12] MEDS ORDERED: HEPARIN 50,000 UNIT/10 ML VIAL ONE (17:16)
--- NOTE | 2016-05-12 19:52 | PDDCSUM ---
Discharge Summary Discharge Summary: DATE OF ADMISSION: 04/20/16 DATE OF DISCHARGE: 05/12/16 DISPOSITION: Home with home health care, RN and PT PRINCIPAL ADMISSION DIAGNOSES: Superior vena cava syndrome. PRINCIPAL DISCHARGE DIAGNOSES: 1. 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 2. 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 3. Type B2 thymoma. 4. Status post radical thymectomy with left lower lobectomy and reconstruction of innominate vein. 5. Status post open thrombectomy of left arm fistula. 6. Acute expected blood loss anemia with coagulopathy. 7. Postoperative left vocal cord paralysis. 8. Postoperative bilateral pneumothoraces. 9. Status post SVC stenting. 10. Status post placement of tunneled dialysis catheter HISTORY OF PRESENT ILLNESS: 45 yo male with ESRD and a known thymoma admitted for further evaluation of left facial and left arm swelling concerning for superior vena cava syndrome. PERTINENT PAST MEDICAL HISTORY: 1. Thymoma - benign by biopsy in [place] in 2010. Reportedly 9 cm by evaluation at [facility] in 2015, at which time "high-risk" operation declined. 2. Polycystic kidney and liver disease. 3. ESRD - on hemodialysis since 2012. Followed by Dr Jacques at [facility]. Access via left upper arm AVF. Trying to get on the transplant list at [facility]. 4. Anemia of chronic disease. 5. Hyperparathyroidism. 6. Hypertension. 7. Hemorrhagic stroke in 2008 - Residual left hemiparesis with LUE contracture. Able to walk with a cane. MEDICATIONS ON ADMISSION: Sensipar 30 mg daily, Renvela 1,600 mg TID ALLERGIES: NKDA CONSULTANTS: Hematology (Mani), Hospitalist (Kaun), CV surgery (Sharron), Pulmonology/ critical care (Maricruz ), General Surgery (Home), Interventional radiology (Aditya) , ENT (Gema) PROCEDURES/IMAGIN/9 Chest CTA 04/20 LUE venous ultrasound 04/21 (Yanni): CT guided biopsy of anterior mediastinal mass 04/25 (Israel): Median sternotomy. Radical thymectomy on cardiopulmonary bypass, including left lower lobectomy, sacrifice of left phrenic nerve, and reconstruction of innominate vein with an 8mm [place] graft. Temporary occlusion of left AVF with a 5 Fr marly balloon. Post procedure thrombectomy of innominate vein. 2/14 (Home): Open thrombectomy of left brachiocephalic fistula. 04/30 (Gema): Fiberoptic indirect laryngoscopy 05/01 (Rafy): Bronchoscopy. 05/02 (Aditya): Venogram of RUE, RIJ and left fistula. Placement of temporary dialysis catheter in right internal jugular vein. 05/03 (Adrian): CT guided placement of bilateral 16 Fr Thal-Quick chest tubes. 05/04 (Pavithra): Videofluoroscopic swallow study. 05/11 (Aditya): Venogram of SVC with placement of a 14 x 40 mm self expanding stent. Conversion of RIJ temporary dialysis catheter to a tunneled dialysis catheter. ABBREVIATED HOSPITAL COURSE: Imaging remarkable for an 8 cm anterior mediastinal mass compressing the innominate vein and the left pulmonary artery with extensive chest wall collateralization, a post-stenotic aneurysmal left subclavian vein, and a patent dialysis graft. The SVC was also identified as being compressed on the right side by aberrant aortic arch anatomy. CT guided bx of the mass nondiagnostic (but negative for malignancy) and referred for surgical debulking/ resection. Taken to the OR on hospital day #5. Found to have a large, multilobulated and partially encapsulated tumor invading the pericardium, the left innominate vein, the left lower lobe of the lung, as well as encasing the left phrenic,vagus and recurrent laryngeal nerves. Pathology of specimens showed a type B2 thymoma with positive margins. Complex resection complicated by coagulopathy requiring massive transfusion; thrombosis of his AV fistula requiring an open thrombectomy; ongoing facial and left arm swelling with impaired use of patent AV fistula due to high venous pressures attributable to central (SVC) stenosis; transient hoarseness attributed to recurrent laryngeal nerve injury and vocal cord palsy; delayed oral nutrition until dysphagia definitively ruled out by VFSS: and bilateral pneumothoraces post chest tube removal requiring reinsertion of smaller tubes by IR. SVC successfully stented prior to discharge and use of fistula to be retried at outpatient dialysis. Anemia felt to be stable on high dose procrit. Posthospital recovery at [facility] recommended but declined, and arrangements made for HHC/PT. DISCHARGE CLINICAL INFORMATION: Sternum grossly stable. Sternotomy and multiple left upper arm incisions CDI ( anamaria out). LUE AVF +thrill. HR 90s-100s. SBP 80s-90s. SpO2 86% RA, correcting to > 91% on 2 Lpm O2. Wt 1 kg below admission at 55.7 kilos. WBC 5.2, Hgb 7.2, HCT 21.3, Plt 253, K 4.4, Cr 6.8, Ca 8.4, Phos 4.4, albumin 3. CXR: No PTX, linear atelectasis rt midlung and left base, elevated left hemidiaphragm. DISCHARGE MEDICATIONS: As on admission with the following NEW prescriptions: 1. Percocet 5/325 one tab q 6-8 hrs prn incisional discomfort. 2. O2 @ 2 Lpm continuously or as directed by SpO2. * Procrit on dialysis per nephrology OTC: EC ASA 81 mg daily. FOLLOW UP APPOINTMENTS: 1. CV surgery: with Dr Skinner at [facility] on 05/23 at 10:45. 2. General Surgery: with Dr Bhta in 2-3 weeks or as directed. Wound check left arm +/- discussion dialysis access. 3. Heme/Oncology: with Dr Colon at [facility] to discuss surveillance and possible adjunctive therapy. 4. Dialysis M[facility]F [facility] [place]. FOLLOW UP TESTING: CXR prior to surgical appointment. Dialysis labs per nephrology.
== END 2016-05-12 17:17 | disposition home health service (06) | DRG 826 ==
LOC: F2W 15:22 → F3N 22:00 → F2N 04-25 07:57 → F2W 05-05 09:53 → UNDODISIN 05-11 13:05
PROVIDERS: ADMIT Thoracic Surgery (Cardiothoracic Vascular Surgery); ATTEND Thoracic Surgery (Cardiothoracic Vascular Surgery)
PROC: 07B Lymphatic and Hemic Systems, Excision (ICD-10-PCS; 2016-04-21)
PROC: 5A1D60Z (ICD-10-PCS; 2016-04-21)
PROC: 05R Upper Veins, Replacement (ICD-10-PCS; principal; 2016-04-25 07:28)
PROC: 008Q0ZZ Division of Vagus Nerve, Open Approach (ICD-10-PCS; principal; 2016-04-25 07:28)
PROC: [UNRECOGNIZED PROCEDURE] (principal; 2016-04-25 07:28)
PROC: 30233N1 Transfusion of Nonautologous Red Blood Cells into Peripheral Vein, Percutaneous Approach (ICD-10-PCS; principal; 2016-04-25 07:28)
PROC: 0WBC0ZZ Excision of Mediastinum, Open Approach (ICD-10-PCS; principal; 2016-04-25 07:28)
PROC: 02BN0ZZ Excision of Pericardium, Open Approach (ICD-10-PCS; principal; 2016-04-25 07:28)
PROC: 30233K1 Transfusion of Nonautologous Frozen Plasma into Peripheral Vein, Percutaneous Approach (ICD-10-PCS; principal; 2016-04-25 07:28)
PROC: 30233R1 Transfusion of Nonautologous Platelets into Peripheral Vein, Percutaneous Approach (ICD-10-PCS; principal; 2016-04-25 07:28)
PROC: 5A1955Z Respiratory Ventilation, Greater than 96 Consecutive Hours (ICD-10-PCS; principal; 2016-04-25 07:28)
PROC: 5A1221Z Performance of Cardiac Output, Continuous (ICD-10-PCS; principal; 2016-04-25 07:28)
PROC: 0BTJ0ZZ Resection of Left Lower Lung Lobe, Open Approach (ICD-10-PCS; principal; 2016-04-25 07:28)
PROC: 02HV33Z Insertion of Infusion Device into Superior Vena Cava, Percutaneous Approach (ICD-10-PCS; 2016-04-26)
PROC: B51W1ZZ Fluoroscopy of Dialysis Shunt/Fistula using Low Osmolar Contrast (ICD-10-PCS; 2016-04-27 08:15)
PROC: 05CF0ZZ Extirpation of Matter from Left Cephalic Vein, Open Approach (ICD-10-PCS; 2016-04-27 08:15)
PROC: 03C80ZZ Extirpation of Matter from Left Brachial Artery, Open Approach (ICD-10-PCS; 2016-04-27 08:15)
PROC: 0CJS8ZZ Inspection of Larynx, Via Natural or Artificial Opening Endoscopic (ICD-10-PCS; 2016-04-30)
PROC: 0B9B8ZZ Drainage of Left Lower Lobe Bronchus, Via Natural or Artificial Opening Endoscopic (ICD-10-PCS; 2016-05-01)
PROC: 0B978ZZ Drainage of Left Main Bronchus, Via Natural or Artificial Opening Endoscopic (ICD-10-PCS; 2016-05-01)
PROC: 02HV33Z Insertion of Infusion Device into Superior Vena Cava, Percutaneous Approach (ICD-10-PCS; 2016-05-02)
PROC: B51W1ZZ Fluoroscopy of Dialysis Shunt/Fistula using Low Osmolar Contrast (ICD-10-PCS; 2016-05-02)
PROC: 0W9B30Z Drainage of Left Pleural Cavity with Drainage Device, Percutaneous Approach (ICD-10-PCS; 2016-05-03)
PROC: 0W9930Z Drainage of Right Pleural Cavity with Drainage Device, Percutaneous Approach (ICD-10-PCS; 2016-05-03)
PROC: 02HV33Z Insertion of Infusion Device into Superior Vena Cava, Percutaneous Approach (ICD-10-PCS; 2016-05-11)
PROC: 027V3DZ Dilation of Superior Vena Cava with Intraluminal Device, Percutaneous Approach (ICD-10-PCS; 2016-05-11)
DX: C37 Malignant neoplasm of thymus (principal); C78.02 Secondary malignant neoplasm of left lung; C79.89 Secondary malignant neoplasm of other specified sites; I87.1 Compression of vein; Q25.47 Right aortic arch; Q25.48 Anomalous origin of subclavian artery; T82.868A Thrombosis due to vascular prosthetic devices, implants and grafts, initial encounter; D68.32 Hemorrhagic disorder due to extrinsic circulating anticoagulants; J95.61 Intraoperative hemorrhage and hematoma of a respiratory system organ or structure complicating a respiratory system procedure; I97.618 Postprocedural hemorrhage of a circulatory system organ or structure following other circulatory system procedure; D62 Acute posthemorrhagic anemia; D69.59 Other secondary thrombocytopenia; J38.01 Paralysis of vocal cords and larynx, unilateral; E87.5 Hyperkalemia; J95.812 Postprocedural air leak; J95.811 Postprocedural pneumothorax; N18.6 End stage renal disease; Z99.2 Dependence on renal dialysis; Q61.3 Polycystic kidney, unspecified; D63.1 Anemia in chronic kidney disease; Q44.6 Cystic disease of liver; I69.354 Hemiplegia and hemiparesis following cerebral infarction affecting left non-dominant side; I10 Essential (primary) hypertension; F12.90 Cannabis use, unspecified, uncomplicated; F17.210 Nicotine dependence, cigarettes, uncomplicated
CPT/HCPCS: 82947-QW; 86022-90; 86705-90; 88184-90; 88185-91; 92526-GN; 92611-GN; 97110-GO; 97161-GP; 97164-GP; 97167-GO; 97530-GO; 97530-GP; 97535-GO; C1725; C1750; C1757; C1758; C1768; C1769; C1773; C1876; C1892; C1894; G0472; G8978-GP-CK; G8978-GP-CL; G8978-GP-CM; G8979-GP-CJ; G8979-GP-CK; G8980-GP-CK; G8987-GO-CL; G8987-GO-CM; G8988-GO-CK; G8996-GN-CI; G8996-GN-CL; G8997-GN-CH; G8997-GN-CJ; G8998-GN-CI; J0330; J0690; J0885; J1100; J1170; J1265; J1644; J1815; J1885; J2001; J2150; J2250; J2370; J2440; J2597; J2704; J2720; J2997; J3010; J7060; P9012; P9016; P9017; P9021; P9035; P9041; P9047; Q9961; Q9967

== ENCOUNTER → 2016-05-23 | Outpatient (CLI) | payer OTHER, MEDICAID | LOC: FIMAGING 10:03 | PROVIDERS: ATTEND Thoracic Surgery (Cardiothoracic Vascular Surgery) | DX: J98.11 Atelectasis (principal); Z90.2 Acquired absence of lung [part of]; Z98.890 Other specified postprocedural states ==